=== PATIENT | male | born 1950 | race Caucasian/White ===

== ENCOUNTER 2018-09-01 11:52 | Emergency (ER) | payer MEDICARE, OTHER ==
[~2018-09-01] VITALS: Ht 167.6 cm; Wt 63.5 kg
[~2018-09-01 11:52] MED LIST: ATIVAN1 MG ORAL; DIPHENHYDRAMINE25 M1 ORAL; HYDROCODON-ACE1 EA18 PO; KENALOG 0.1% CR15 GM APPLIC; ZOLPIDEM TARTRAT5 MG ORAL
[2018-09-01 12:02] VITALS: BP 153/88
[2018-09-01] MEDS ORDERED: LEVETIRACE100 MG/1 M GT (13:45)
[2018-09-01] MEDS ORDERED: RISPERDAL2 MG ORAL (13:45)
[2018-09-01] MEDS ORDERED: BENZTROPINE ME0.5 MG PO (13:45)
[2018-09-01] MEDS ORDERED: COLACE100 MG ORAL (13:45)
[2018-09-01] MEDS ORDERED: FAMOTIDINE20 MG ORAL (13:45)
[2018-09-01] MEDS ORDERED: GABAPENTIN300 MG ORAL (13:45)
[2018-09-01] MEDS ORDERED: OMEPRAZOLE40 M1 ORAL (13:45)
[2018-09-01] MEDS ORDERED: LOSARTAN POTASS50 MG ORAL (13:45)
[2018-09-01] MEDS ORDERED: TAMSULOSIN HCL0.4 MG ORAL (13:45)
[2018-09-01] MEDS ORDERED: SENNA8.6 M2 PO (13:45)
[2018-09-01 14:16] LABS: BASOPHILS % (AUTO) 1.7 % (0.0-2.0); HEMATOCRIT 39.1 % (42.0-52.0); HEMOGLOBIN 13.3 G/DL (14.2-18.0); LYMPHOCYTES % (AUTO) 21.5 % (20.0-45.0); MEAN CORPUSCULAR VOLUME 92 FL (80-99); MONOCYTES % (AUTO) 6.8 % (1.0-10.0); NEUTROPHILS % (AUTO) 68.9 % (45.0-75.0); PLATELET COUNT 225 K/UL (150-450); RED BLOOD COUNT 4.23 M/UL (4.70-6.10); RED CELL DISTRIBUTION WIDTH 12.8 % (11.6-14.8); WHITE BLOOD COUNT 7.6 K/UL (4.8-10.8)
[2018-09-01 14:22] LABS: INR 1.1 (0.9-1.1)
--- NOTE | 2018-09-01 14:30 | Emergency Room Report ---
History of Present Illness General Chief Complaint: Nausea Source: Patient (Jaleel Lopez MD) Present Illness HPI Patient is a 68-year-old male presented after increased nausea and vomiting. Patient had multiple episodes of vomiting. Patient had not been noted to have any fever. Patient denies any severe pain. He reports having prior history of arthritis and had multiple. Patient is denies any hematemesis or bloody stools.He reports having not had a bowel movement over the past 1 day. (Jaleel Lopez MD) Allergies: Coded Allergies: No Known Allergies (Unverified , 07/20/15) Patient History Past Medical History: see triage record Reviewed Nursing Documentation: PMH: Agreed; PSxH: Agreed (Jaleel Lopez MD) Nursing Documentation-PMH Past Medical History: No History, Except For (Jaleel Lopez MD) Review of Systems All Other Systems: negative except mentioned in HPI (Jaleel Lopez MD) Physical Exam Vital Signs Date Time Temp Pulse Resp B/P (MAP) Pulse Ox O2 Delivery O2 Flow Rate FiO2 09/01/18 11:46 98.4 62 18 160/84 94 Room Air Sp02 EP Interpretation: reviewed, normal General Appearance: normal inspection, well appearing, no apparent distress, alert, Chronically Ill Head: atraumatic ENT: normal ENT inspection, hearing grossly normal, normal voice Neck: normal inspection, full range of motion, supple, no bony tend Respiratory: normal inspection, lungs clear, normal breath sounds, no respiratory distress, no retraction, no wheezing Cardiovascular #1: regular rate, rhythm, no edema Gastrointestinal: normal bowel sounds, non tender, soft, no guarding, no hernia , distended Genitourinary: no CVA tenderness Musculoskeletal: decreased range of motion, other - contracted Neurologic: normal inspection, alert, responsive, speech normal Psychiatric: normal inspection, judgement/insight normal, mood/affect normal Skin: normal inspection, normal color, no rash (Jaleel Lopez MD) Medical Decision Making Diagnostic Impression: Primary Impression: Nausea and vomiting in adult patient ER Course Patient presented for abdominal pain. Differential diagnoses included ischemic bowel, bowel obstruction, appendicitis, perforated viscus, abdominal aortic aneurysm, inferior myocardial infarction, viral gastroenteritis. Because of complexity of patient's case laboratory testing and imaging studies were ordered. Laboratory studies were unremarkable. CT imaging is currently pending. Patient was endorsed to Dr. Wagner pending CT findings. (Jaleel Lopez MD) ER Course Please refer to the initial note for the history exam and presentation Patient's CT imaging does not reveal any obvious bowel traction patient does have significant retained stool There are also some evidence of inflammation and possible colitis, please refer to the full report for full specifics, sodium level showing sodium of 130 Does not require any acute intervention currently A Fleet enema was ordered for improvement however the patient refuses that Reports having bowel movement earlier Currently remains asymptomatic patient has been resting without any signs of vomiting in the emergency room Case was discussed with the patient's primary physician He reports of the patient has had several stool retention episodes And he will otherwise follow at [facility] Labs Test 09/01/18 14:00 09/01/18 15:10 White Blood Count 7.6 K/UL (4.8-10.8) Red Blood Count 4.23 M/UL (4.70-6.10) Hemoglobin 13.3 G/DL (14.2-18.0) Hematocrit 39.1 % (42.0-52.0) Mean Corpuscular Volume 92 FL (80-99) Mean Corpuscular Hemoglobin 31.4 PG (27.0-31.0) Mean Corpuscular Hemoglobin Concent 34.0 G/DL (32.0-36.0) Red Cell Distribution Width 12.8 % (11.6-14.8) Platelet Count 225 K/UL (150-450) Mean Platelet Volume 5.8 FL (6.5-10.1) Neutrophils (%) (Auto) 68.9 % (45.0-75.0) Lymphocytes (%) (Auto) 21.5 % (20.0-45.0) Monocytes (%) (Auto) 6.8 % (1.0-10.0) Eosinophils (%) (Auto) 1.0 % (0.0-3.0) Basophils (%) (Auto) 1.7 % (0.0-2.0) Prothrombin Time 11.5 SEC (9.30-11.50) Prothromb Time International Ratio 1.1 (0.9-1.1) Activated Partial Thromboplast Time 29 SEC (23-33) Lactic Acid Level 0.70 mmol/L (0.4-2.0) Troponin I 0.000 ng/mL (0.000-0.056) Sodium Level 130 MMOL/L (136-145) Potassium Level 4.3 MMOL/L (3.5-5.1) Chloride Level 96 MMOL/L (98-107) Carbon Dioxide Level 26 MMOL/L (21-32) Anion Gap 8 mmol/L (5-15) Blood Urea Nitrogen 12 mg/dL (7-18) Creatinine 0.6 MG/DL (0.55-1.30) Estimat Glomerular Filtration Rate > 60 mL/min (>60) Glucose Level 93 MG/DL (74-106) Calcium Level 8.7 MG/DL (8.5-10.1) Total Bilirubin 0.6 MG/DL (0.2-1.0) Aspartate Amino Transf (AST/SGOT) 18 U/L (15-37) Alanine Aminotransferase (ALT/SGPT) 18 U/L (12-78) Alkaline Phosphatase 145 U/L (46-116) Total Protein 7.6 G/DL (6.4-8.2) Albumin 3.4 G/DL (3.4-5.0) Globulin 4.2 g/dL Albumin/Globulin Ratio 0.8 (1.0-2.7) Lipase 232 U/L (73-393) (Niurka Wagner DO) CT/MRI/US Diagnostic Results CT/MRI/US Diagnostic Results : Impression CT abdomen pelvisIMPRESSION: Limited exam without intravenous and oral contrast. Within these limitations: * Moderate stool burden in the rectum which is dilated. There is associated rectal wall thickening and mild presacral edema. Findings are suggest of a fecal impaction with possible development of stercoral colitis. Correlate clinically. * Possibility of underlying rectal mass not excludable given degree of rectal wall thickening. Recommend further evaluation with colonoscopy after resolution of fecal impaction. * Significant colonic stool burden in some scattered areas of small bowel feces. Findings are likely related to the above-described rectal fecal impaction. No abnormal dilatation of small bowel loops to suggest small bowel obstruction. * Moderate gaseous distention of the stomach, nonspecific, possibility of a degree of gastric outlet obstruction or delayed gastric emptying not excludable. * Bladder wall thickening may be related to underdistention. Correlate with urinalysis to exclude cystitis. * Complex cyst with some peripheral calcification in the left kidney. Recommend comparison with prior exam to assess stability. Alternatively follow-up exam can be obtained. Correlation with ultrasound may also be helpful. * Elevation of the right hemidiaphragm with adjacent atelectasis/scarring in the right lower lobe. * Coronary arterial calcifications. Additional incidental findings as above. (Niurka Wagner DO) Last Vital Signs Date Time Temp Pulse Resp B/P (MAP) Pulse Ox O2 Delivery O2 Flow Rate FiO2 09/01/18 12:02 98.4 59 22 153/88 96 Room Air (Jaleel Lopez MD) Status: improved (Niurka Wagner DO) Disposition: [facility] Condition: Improved Referrals: NON PHYSICIAN (PCP) Additional Instructions: Patient is provided with the discharge instructions notified to follow up with primary doctor in the next 2-3 days otherwise return to the er with any worsening symptoms. Please note that this report is being documented using [employer] technology. This can lead to erroneous entry secondary to incorrect interpretation by the dictating instrument. Jaleel Lopez MD Sep 01, 2018 14:30 Niurka Wagner DO Sep 01, 2018 17:05
[2018-09-01] MEDS ORDERED: Isovue-300 100ml vial INJ PRN (15:00)
[2018-09-01 15:38] LABS: ALANINE AMINOTRANSFERASE 18 U/L (12-78); ALBUMIN 3.4 G/DL (3.4-5.0); ALBUMIN/GLOBULIN RATIO 0.8 (1.0-2.7); ALKALINE PHOSPHATASE 145 U/L (46-116); ANION GAP 8 mmol/L (5-15); ASPARTATE AMINO TRANSFERASE 18 U/L (15-37); BILIRUBIN,TOTAL 0.6 MG/DL (0.2-1.0); CALCIUM 8.7 MG/DL (8.5-10.1); CARBON DIOXIDE 26 MMOL/L (21-32); CHLORIDE 96 MMOL/L (98-107); CREATININE 0.6 MG/DL (0.55-1.30); POTASSIUM 4.3 MMOL/L (3.5-5.1); SODIUM 130 MMOL/L (136-145)
[2018-09-01 15:51] LABS: BLOOD UREA NITROGEN 12 mg/dL (7-18)
--- NOTE | 2018-09-01 16:27 | Diagnostic Imaging Report ---
Indication: Abdominal pain Technique: Noncontrast CT of the abdomen and pelvis utilizing automated exposure control. Axial, sagittal and coronal reformats presented. CT dose: Total DLP 546.84 mGycm; CTDI vol 10.11 mGy Comparison: None Findings: Please note that evaluation of the abdominal and pelvic viscera and vascular structures is limited without the use of intravenous and oral contrast. Within these limitations the following observations are made: There is elevation of the right hemidiaphragm and adjacent atelectasis or scarring in the right lower lobe. Heart size within the upper limits for normal. There are coronary arterial calcifications. There is interposition of the colon anterior to the liver. Gallbladder is unremarkable, without CT evident gallstones or pericholecystic inflammatory change. Noncontrast evaluation of the liver, spleen and pancreas unremarkable. There is bilateral adrenal hyperplasia. A cyst in the lower pole the left kidney demonstrates some thinning calcifications. There is no urinary tract stone or hydronephrosis. There is bladder wall thickening. Prostate appears mildly enlarged. There is nonspecific gaseous distention of the stomach. Small bowel loops are not dilated. There is marked colonic stool burden. There is significant stool in the rectum which is dilated. There is rectal wall thickening with thickness measuring up to approximately 14 mm (series 3 image #127). There is presacral stranding and small pelvic lymph nodes. Findings suggest fecal impaction with possible development of stercoral colitis. Underlying mass not excludable given rectal wall thickening. Correlation with colonoscopy recommended after resolution of the fecal impaction. Some scattered areas of small bowel feces. Appendix is not definitively identified however no focal inflammatory stranding the right lower quadrant. Atherosclerotic calcifications noted in a normal caliber abdominal aorta. There are degenerative changes in the spine and bilateral hips. No evidence of acute fracture. IMPRESSION: Limited exam without intravenous and oral contrast. Within these limitations: * Moderate stool burden in the rectum which is dilated. There is associated rectal wall thickening and mild presacral edema. Findings are suggest of a fecal impaction with possible development of stercoral colitis. Correlate clinically. * Possibility of underlying rectal mass not excludable given degree of rectal wall thickening. Recommend further evaluation with colonoscopy after resolution of fecal impaction. * Significant colonic stool burden in some scattered areas of small bowel feces. Findings are likely related to the above-described rectal fecal impaction. No abnormal dilatation of small bowel loops to suggest small bowel obstruction. * Moderate gaseous distention of the stomach, nonspecific, possibility of a degree of gastric outlet obstruction or delayed gastric emptying not excludable. * Bladder wall thickening may be related to underdistention. Correlate with urinalysis to exclude cystitis. * Complex cyst with some peripheral calcification in the left kidney. Recommend comparison with prior exam to assess stability. Alternatively follow-up exam can be obtained. Correlation with ultrasound may also be helpful. * Elevation of the right hemidiaphragm with adjacent atelectasis/scarring in the right lower lobe. * Coronary arterial calcifications. Additional incidental findings as above. The CT scanner at [facility] is accredited by the [employer] and the scans are performed using protocols designed to limit radiation exposure to as low as reasonably achievable to attain images of sufficient resolution adequate for diagnostic evaluation.
[2018-09-01] MEDS: Fleet's Enema 133ml RECTAL ONE ×2 (16:39→16:43)
[2018-09-01 17:10] VITALS: BP 155/81
[2018-09-01 17:46] VITALS: BP 155/58
--- NOTE | 2018-09-03 17:37 | Cardiology Report ---
APPROVED REPORT EKG Measurement Heart [id number] Sinus bradycardia Left axis deviation Abnormal ECG
== END 2018-09-01 17:30 ==
LOC: EDBD 11:52 → EMR 14:08
DX: R11.2 Nausea with vomiting, unspecified (principal); R10.9 Unspecified abdominal pain
CPT/HCPCS: 36415; 74176; 80053; 82962; 83605; 83690; 84484; 85025; 85610; 85730; 93005; 96361; 96374; 99284; J2405

== ENCOUNTER 2018-11-12 13:09 | Inpatient (IN) | payer MEDICARE, OTHER ==
[~2018-11-12] VITALS: Ht 172.7 cm; Wt 72.6 kg
[~2018-11-12 13:09] MED LIST changes: +BENZTROPINE ME0.5 MG PO; +COLACE100 MG ORAL; +FAMOTIDINE20 MG ORAL; +GABAPENTIN300 MG ORAL; +LEVETIRACE100 MG/1 M ORAL; +LOSARTAN POTASS50 MG ORAL; +OMEPRAZOLE40 M1 ORAL; +RISPERDAL2 MG ORAL; +SENNA8.6 M2 PO; +TAMSULOSIN HCL0.4 MG ORAL
[2018-11-12 13:20] VITALS: BP 140/79
--- NOTE | 2018-11-12 13:20 | NUR ---
ED Nurse Note: PT BROUGHT IN BY AMBULANCE FROM [facility]. AOX4. PER EMS, PT WAS FEBRILE AT FACILITY, 100.0F. RECTAL TEMP AT BEDSIDE: 103.3F. PT ALSO TACHYCARDIC, HR: 107. RR22 @ 94% O2 SATURATION ON RA. PT DENIES PAIN.
[2018-11-12] MEDS ORDERED: SODIUM CHLORIDE1 GM PO (13:26)
[2018-11-12] MEDS ORDERED: LOSARTAN POTASS50 MG ORAL (13:28)
[2018-11-12] MEDS ORDERED: Sodium Chloride 2,200 ML IVLG ONE (13:30)
[2018-11-12] MEDS ORDERED: Cefepime HCl 2 GM in NS 110 ML IV SCH (13:30)
--- NOTE | 2018-11-12 13:40 | NUR ---
ED Nurse Note: Urine could not be collected, pt refused straight catheter.
[2018-11-12 14:08] LABS: HEMATOCRIT 32.2 % (42.0-52.0); HEMOGLOBIN 10.7 G/DL (14.2-18.0); MEAN CORPUSCULAR VOLUME 84 FL (80-99); PLATELET COUNT 278 K/UL (150-450); RED BLOOD COUNT 3.85 M/UL (4.70-6.10); RED CELL DISTRIBUTION WIDTH 14.1 % (11.6-14.8); WHITE BLOOD COUNT 15.7 K/UL (4.8-10.8)
[2018-11-12] MEDS ORDERED: Acetaminophen 650 MG SUPP RECTAL ONE (14:15)
[2018-11-12 14:21] LABS: ANION GAP 10 mmol/L (5-15); BLOOD UREA NITROGEN 12 mg/dL (7-18); CALCIUM 8.6 MG/DL (8.5-10.1); CARBON DIOXIDE 26 MMOL/L (21-32); CHLORIDE 94 MMOL/L (98-107); CREATININE 0.7 MG/DL (0.55-1.30); POTASSIUM 4.1 MMOL/L (3.5-5.1); SODIUM 129 MMOL/L (136-145)
[2018-11-12 14:35] LABS: ALANINE AMINOTRANSFERASE 8 U/L (12-78); ALBUMIN 2.6 G/DL (3.4-5.0); ALBUMIN/GLOBULIN RATIO 0.5 (1.0-2.7); ALKALINE PHOSPHATASE 124 U/L (46-116); ASPARTATE AMINO TRANSFERASE 14 U/L (15-37); BILIRUBIN,TOTAL 0.8 MG/DL (0.2-1.0); CKMB < 0.5 NG/ML (0.0-3.6); CREATINE KINASE 37 U/L (26-308)
[2018-11-12 15:00] VITALS: BP 123/70
--- NOTE | 2018-11-12 15:00 | NUR ---
ED Nurse Note: PT REMINDED URINE IS NECESSARY. URINAL AT BEDSIDE. PT CONTINUES TO REFUSE STRAIGHT CATHETER.
--- NOTE | 2018-11-12 15:24 | Diagnostic Imaging Report ---
Indication: Cough Technique: One view of the chest Comparison: 05/12/2012 Findings: A band of atelectasis is present in the right perihilar region. The lungs and pleural spaces are otherwise clear. The heart size is normal. The aorta is tortuous calcified and ectatic Impression: Right perihilar atelectasis. No acute process otherwise
--- NOTE | 2018-11-12 15:56 | Emergency Room Report ---
History of Present Illness General Chief Complaint: Fever Source: Medical Record Present Illness Allergies: Coded Allergies: No Known Allergies (Unverified , 07/20/15) Nursing Documentation-H Past Medical History: No History, Except For Hx Cardiac Problems: Yes - V-fib History Of Psychiatric Problem: Yes - Psychosis, schizophrenia, anxiety Hx Neurological Problems: Yes - Parkinson's disease, insomnia, osteoarthritis Hx Seizures: Yes Physical Exam Vital Signs Date Time Temp Pulse Resp B/P (MAP) Pulse Ox O2 Delivery O2 Flow Rate FiO2 11/12/18 13:17 100.8 110 21 146/81 92 Nasal Cannula 4.0 Medical Decision Making Diagnostic Impression: Primary Impression: Fever Additional Impressions: Hyponatremia Pneumonia Sepsis Laboratory Tests Test 11/12/18 13:49 White Blood Count 15.7 K/UL (4.8-10.8) H Red Blood Count 3.85 M/UL (4.70-6.10) L Hemoglobin 10.7 G/DL (14.2-18.0) L Hematocrit 32.2 % (42.0-52.0) L Mean Corpuscular Volume 84 FL (80-99) Mean Corpuscular Hemoglobin 27.7 PG (27.0-31.0) Mean Corpuscular Hemoglobin Concent 33.1 G/DL (32.0-36.0) Red Cell Distribution Width 14.1 % (11.6-14.8) Platelet Count 278 K/UL (150-450) Mean Platelet Volume 4.6 FL (6.5-10.1) L Neutrophils (%) (Auto) % (45.0-75.0) Lymphocytes (%) (Auto) % (20.0-45.0) Monocytes (%) (Auto) % (1.0-10.0) Eosinophils (%) (Auto) % (0.0-3.0) Basophils (%) (Auto) % (0.0-2.0) Differential Total Cells Counted 100 Neutrophils % (Manual) 89 % (45-75) H Lymphocytes % (Manual) 7 % (20-45) L Monocytes % (Manual) 4 % (1-10) Eosinophils % (Manual) 0 % (0-3) Basophils % (Manual) 0 % (0-2) Band Neutrophils 0 % (0-8) Platelet Estimate Adequate Platelet Morphology Normal Hypochromasia 1+ Anisocytosis Sodium Level 129 MMOL/L (136-145) L Potassium Level 4.1 MMOL/L (3.5-5.1) Chloride Level 94 MMOL/L (98-107) L Carbon Dioxide Level 26 MMOL/L (21-32) Anion Gap 10 mmol/L (5-15) Blood Urea Nitrogen 12 mg/dL (7-18) Creatinine 0.7 MG/DL (0.55-1.30) Estimate Glomerular Filtration Rate > 60 mL/min (>60) Glucose Level 112 MG/DL (74-106) H Lactic Acid Level 0.90 mmol/L (0.4-2.0) Calcium Level 8.6 MG/DL (8.5-10.1) Total Bilirubin 0.8 MG/DL (0.2-1.0) Aspartate Amino Transferase (AST) 14 U/L (15-37) L Alanine Aminotransferase (ALT) 8 U/L (12-78) L Alkaline Phosphatase 124 U/L (46-116) H Total Creatine Kinase 37 U/L (26-308) Creatine Kinase MB < 0.5 NG/ML (0.0-3.6) Creatine Kinase MB Relative Index Troponin I 0.000 ng/mL (0.000-0.056) Total Protein 7.4 G/DL (6.4-8.2) Albumin 2.6 G/DL (3.4-5.0) L Globulin 4.8 g/dL Albumin/Globulin Ratio 0.5 (1.0-2.7) L Microbiology Date/Time Source Procedure Growth Status 11/12/18 13:49 Nasal Nares Influenza Types A,B Antigen (ISRRAEL) - Final Complete EKG Diagnostic Results Rate: tachycardiac Rhythm: other - S.tachycardia ST Segments: no acute changes Rhythm Strip Diag. Results EP Interpretation: yes Rate: 70's Rhythm: NSR, no PVC's, no ectopy Chest X-Ray Diagnostic Results Chest X-Ray Diagnostic Results : Chest X-Ray Ordered: Yes # of Views/Limited/Complete: 1 View Indication: Other - fever Interpretation: other - RLL opacity Impression: Other - See above Electronically Signed by: Sade Rea DO Last Vital Signs Date Time Temp Pulse Resp B/P (MAP) Pulse Ox O2 Delivery O2 Flow Rate FiO2 11/12/18 15:00 101.7 78 18 123/70 98 Room Air 11/12/18 13:17 4.0 Disposition: ADMITTED INPATIENT Condition: Serious Referrals: Liam Carpenter MD (PCP) Sade Rea DO Nov 12, 2018 15:56
--- NOTE | 2018-11-12 16:21 | NUR ---
ED Nurse Note: PT STILL UNABLE TO PROVIDE URINE AND STILL REFUSING STRAIGHT CATHETER. DR Rahman MADE AWARE. OKAY TO SKIP UA PER DR. Rahman.
[2018-11-12] MEDS ORDERED: Albuterol/Ipratropium 3ml neb HHN PRN (16:45)
[2018-11-12] MEDS ORDERED: Nitroglycerin Subl 0.4mg tab SL PRN (16:45)
[2018-11-12] MEDS ORDERED: Miralax 17gm pkt ORAL PRN (16:45)
[2018-11-12 16:59] VITALS: BP 115/63
--- NOTE | 2018-11-12 17:20 | NUR ---
ED Nurse Note: MEAL TRAY PROVIDED TO PT.
[2018-11-12] MEDS ORDERED: TAMSULOSIN HCL0.4 MG ORAL (17:50)
[2018-11-12] MEDS ORDERED: RISPERIDONE ODT2 MG PO (17:50)
[2018-11-12] MEDS ORDERED: LEVETIRACETAM500 MG ORAL (17:50)
[2018-11-12] MEDS ORDERED: RISPERIDONE PO (17:50)
--- NOTE | 2018-11-12 17:55 | NUR ---
ED Nurse Note: [facility] UN[facility] CALLED FOR PT TRANSFER. PER UNIT, NOT EXPECTING ADMISSION. WILL SPEAK WITH NURSING SUPERVISOR [employer].
[2018-11-12 18:21] LABS: APPEARANCE,URINE TURBID; BILIRUBIN, URINE NEGATIVE (NEGATIVE); GLUCOSE, URINE (UA) NEGATIVE (NEGATIVE); KETONES,URINE 2+ (NEGATIVE); LEUKOCYTE ESTERASE ,URINE 3+ (NEGATIVE); NITRITE,URINE POSITIVE (NEGATIVE); PH,URINE 6 (4.5-8.0); PROTEIN,URINE 3+ (NEGATIVE); UROBILINOGEN,URINE NORMAL MG/DL (0.0-1.0)
--- NOTE | 2018-11-12 18:25 | NUR ---
ED Nurse Note: SPOKE WITH NURSING ASPHALT WORKER. ROOM ERROR WAS MADE. ROOM REASSIGNED TO PT. [facility] CALLED FOR PT REPORT. PER UNIT, CHARGE NURSE IS BUSY. REQUESTING FOR CALL BACK IN 5 MINUTES.
[2018-11-12 18:26] LABS: COLOR,URINE YELLOW
[2018-11-12] MEDS ORDERED: Azithromycin 250mg tab ORAL SCH (18:30)
--- NOTE | 2018-11-12 18:40 | NUR ---
ED Nurse Note: [facility] UN[facility] CALLED FOR PT REPORT. REPORT GIVEN TO BEVERLY SO. PT TAKEN UP TO [facility] UNIT VIA GURNEY WITH ALL BELONGINGS ACCOMPANIED BY EMT. VSS.
[2018-11-12] MEDS ORDERED: Sodium Chloride 1gm Tab ORAL SCH (19:00)
--- NOTE | 2018-11-12 19:30 | NUR ---
NURSE NOTES: Received report from BEVERLY Oquendo. Patient has arrived to unit yet.
--- NOTE | 2018-11-12 19:37 | NUR ---
HAND-OFF: BEVERLY FREIRE gave me report but pt is not still in the 4E. Report given to BEVERLY HUFFMAN.
[2018-11-12 20:00] VITALS: BP 149/92
[2018-11-12] MEDS: Albuterol/Ipratropium 3ml neb HHN SCH ×2 (20:05→23:30)
--- NOTE | 2018-11-12 20:15 | NUR ---
NURSE NOTES: Patient arrived from ER. A&Ox3. On room air, no signs of distress or SOB. Denies pain. IV intact, patent, and saline locked. Bed in lowest position with call light in reach. Will carry out MD orders and continue to monitor patient.
[2018-11-12] MEDS: levETIRAcetam 500mg/5ml Liquid ORAL SCH (21:19)
[2018-11-12] MEDS: Sennosides 8.6mg tab ORAL SCH (21:19)
[2018-11-12] MEDS: LORazepam 1mg tab ORAL SCH (21:19)
[2018-11-12] MEDS: Docusate 100mg cap ORAL SCH (21:20)
[2018-11-12] MEDS: Tamsulosin 0.4mg cap ORAL SCH (21:20)
[2018-11-12] MEDS: Heparin 5000 units/ml inj SUBQ SCH (21:30)
[2018-11-12 23:51] VITALS: BP 123/74
[2018-11-13] MEDS: cefTRIAXone 1 GM in NS 55 ML IVPB SCH (02:09)
[2018-11-13] MEDS: Albuterol/Ipratropium 3ml neb HHN SCH ×6 (03:42→23:34)
[2018-11-13 04:00] VITALS: BP 140/81
--- NOTE | 2018-11-13 07:38 | NUR ---
HAND-OFF: Report given to BEVERLY Nielsen.
[2018-11-13 08:00] VITALS: BP 109/62
[2018-11-13] MEDS: Sennosides 8.6mg tab ORAL SCH ×2 (08:47→17:33)
[2018-11-13] MEDS: Losartan 50mg tab ORAL SCH (08:47)
[2018-11-13] MEDS: Docusate 100mg cap ORAL SCH ×2 (08:47→17:32)
[2018-11-13] MEDS: Sodium Chloride 1gm Tab ORAL SCH ×2 (08:47→17:32)
[2018-11-13] MEDS: levETIRAcetam 500mg/5ml Liquid ORAL SCH ×2 (08:48→17:32)
[2018-11-13] MEDS: Heparin 5000 units/ml inj SUBQ SCH ×2 (08:48→21:00)
[2018-11-13] MEDS ORDERED: Azithromycin 250mg tab ORAL SCH (09:00)
[2018-11-13 12:00] VITALS: BP 115/71
--- NOTE | 2018-11-13 12:32 | History and Physical Report ---
DATE OF ADMISSION: 11/12/2018 CHIEF COMPLAINT AND REASON FOR HOSPITALIZATION: The patient is admitted with cough, fever, and shortness of breath. HISTORY OF PRESENT ILLNESS: The patient is a 68-year-old man with a history of schizophrenia, COPD, osteoarthritis, seizure disorder, hyponatremia, and inability to walk. He lives in assisted living facility and came with fever and cough. X-ray shows pneumonia. ALLERGIES: None known. HABITS: He has been a heavy smoker most of his life, but states he has cut down to about four cigarettes a day recently. No alcohol or drugs. SOCIAL HISTORY: Lives in a assisted living facility. SURGICAL HISTORY: Left knee and right hand. SYSTEM REVIEW: HEAD, EYES, EARS, NOSE, THROAT: The patient's hearing is good. He has poor teeth. ENDOCRINE: No diabetes or thyroid disease. PULMONARY: History of COPD and intermittent bronchospasm. No known TB. CARDIAC: No angina, NV, palpitations, or CHF. GASTROINTESTINAL: History of gastritis. History of recurrent constipation and abdominal pain. GENITOURINARY: He is having incontinence frequently. No history of kidney stones or hematuria. NEUROLOGIC: History of seizures, well controlled for many years. History of generalized weakness. MUSCULOSKELETAL: History of severe osteoarthritis. HOME MEDICATIONS: Include benztropine, Colace, famotidine, gabapentin, Keppra, losartan, omeprazole, Risperdal, senna, sodium chloride tablets, and tamsulosin. PHYSICAL EXAMINATION: GENERAL: The patient is lying in bed, chronically ill-appearing, but in no acute distress. VITAL SIGNS: Temperature 97.6, pulse 80, respirations 18, blood pressure 109/62, and pulse ox 96. HEAD, EYES, EARS, NOSE, AND THROAT: He has poor teeth. No oral mucosal lesions. Sclerae are nonicteric. NECK: No adenopathy. LUNGS: Shows distant breath sounds. Few basilar crackles. HEART: Rhythm is regular. I hear no murmur. ABDOMEN: Soft without organomegaly or masses. EXTREMITIES: No edema, cyanosis, or clubbing. There is generalized muscle atrophy. There is some contractures in the right hand and left knee. NEUROLOGIC: The patient is alert and responsive. Ocular motion is intact in all directions. Smile is symmetric. He moves all extremities. He has generalized weakness. PERTINENT DATA: Chest x-ray, read by the emergency room was consistent with a pulmonary infiltrate. Radiologist report shows right perihilar atelectasis. He has a white count of 15.7, hemoglobin is 10.7. Sodium 129, potassium 4.1, creatinine 0.7. AST and ALT are normal. Albumin is 2.6. Urinalysis shows too numerous to count white cells, 0 - 2 red cells per high-powered field. IMPRESSION: 1. Community-acquired pneumonia versus acute bronchitis. Note, influenza test negative. 2. Urinary tract infection with gram-negative rods. 3. Hyponatremia, chronic likely SIADH. 4. History of epilepsy, controlled. 5. History of schizophrenia. 6. Moderate protein-calorie malnutrition. 7. History of hypertension. 8. History of gastritis. 9. Anemia. PLAN: The patient will be started on empiric antibiotics. Pending results of cultures. We will check his iron levels and we will assess need for further treatment of his anemia. In view of his psychiatric disability and other problems, he needs to be watched closely as an inpatient for two or three days to stabilize. Liam Carpenter M.D. DR: SAYRA JOB#: [id number] CC:
--- NOTE | 2018-11-13 12:55 | NUR ---
CASE MANAGEMENT: REVIEW 68/M DONALDOMari FROM [facility] CC: FEVER SI: PNA . SEPSIS T 103.3 HR 110 RR 24 BP 146/81 SAT 92% NC/4L WBC 15.7 H/H 10.7/32.2 NA 129 14 ALT 8 ALK PHOS 124 IS: AZITHROMYCIN PO X1 NaCl IVF BOLUS X1 TYLENOL RECTAL X1 PATIENT ADMITTED TO MED/SURG UNIT 11/12/2018 DCP: PATIENT IS FROM [facility]
[2018-11-13 16:00] VITALS: BP 121/64
--- NOTE | 2018-11-13 17:09 | NUR ---
PT Note PT toy completed, treatment initiated. Patient is motivated but has muscle weakness specially in BLE's. Patient needs PT services to increase his muscle strength and balance to improve his functional mobility. Addendum: 11/13/18 at 1710 by HOLA MARCUS PT Amended: Links added.
--- NOTE | 2018-11-13 19:40 | NUR ---
HAND-OFF: Report given to PASCUAL PAUL.
[2018-11-13 20:00] VITALS: BP 136/72
[2018-11-13] MEDS ORDERED: NS 500ML ONE (20:03)
[2018-11-13] MEDS ORDERED: Tubing IV Secondary IV ONE (20:03)
--- NOTE | 2018-11-13 22:45 | Consultation ---
Consult Note Assessment/Plan [id number] COPD exacerbation UTI Sepsis hypoxemia HTN nonambulatory Ct Sosa DO Nov 13, 2018 22:45
[2018-11-13] MEDS: Tamsulosin 0.4mg cap ORAL SCH (23:26)
[2018-11-13] MEDS: LORazepam 1mg tab ORAL SCH (23:26)
--- NOTE | 2018-11-13 23:46 | Consultation ---
DATE OF CONSULTATION: 11/13/2018 PULMONARY CONSULTATION REASON FOR CONSULTATION: Shortness of breath. HISTORY OF PRESENT ILLNESS: An elderly gentleman transferred from this facility with cough, shortness of breath, and fever. No nausea, vomiting, or diarrhea. When he came to the emergency room, he was found to have pneumonia. He has been started on intravenous antibiotics, nebulizers, and steroids. He is nonambulatory. Currently, not on supplemental oxygen. He says he feels better than when he was admitted. PAST MEDICAL HISTORY: Schizophrenia, chronic obstructive pulmonary disease, osteoarthritis, seizure disorder, hyponatremia, and gait dysfunction. SURGICAL HISTORY: Includes left knee and right hand. MEDICATIONS: Pre-hospital and current hospital medications reviewed, reconciled, and documented in the electronic medical record by dose, frequency, and route. ALLERGIES: He has no known drug allergies. FAMILY HISTORY: Noncontributory. SOCIAL HISTORY: Positive for tobacco and does smoke daily. No alcohol. No drugs. Lives in assisted living facility. REVIEW OF SYSTEMS: Positive for chest pain, shortness of breath, cough, fever, and chills. No weight loss. No signs of dysphagia or aspiration. PHYSICAL EXAMINATION: VITAL SIGNS: Currently, afebrile, pulse 70, and respirations 18. He is 99% on room air. HEENT: He is normocephalic and atraumatic. Oropharynx is dry. Nasal mucosa is dry. He has poor dentition. LUNGS: Scattered rhonchi. No wheezes. HEART: Regular rhythm without murmur. ABDOMEN: Soft and nontender. Positive bowel sounds. EXTREMITIES: No edema. He is able to move all extremities. No skin rashes or lesions are present. LABORATORY DATA: His white count is 57, hemoglobin 10.7, and platelets are 278,000. Sodium 129, potassium 4.1, chloride 94, bicarb 26, BUN 12, creatinine 0.7, and glucose of 112. Lactic acid is 0.9. His troponin is negative and his urinalysis is positive for leukocyte esterase. His chest x-ray demonstrates right atelectasis and possible pneumonia. ASSESSMENT: Pneumonia, urinary tract infection, sepsis, schizophrenia, chronic obstructive pulmonary disease with exacerbation, hypertension, and hypoxemia. PLAN: The patient is placed on intravenous antibiotics, which we will continue at this time. Currently, he is not wheezing and steroids have been given, so we will hold at this time. If his wheezing does occur, steroids would be indicated. Check blood, urine, and sputum cultures. DVT prophylaxis. O2 to maintain sats greater than 90%. Follow up chest x-ray in 1 to 2 days and resume his home medications. We will continue to follow the patient for the remainder of his hospital stay. Ct Sosa D.O. DR: MARIA ANTONIA JOB#: [id number] CC:
[2018-11-14] VITALS: BP 129/63
[2018-11-14] MEDS: cefTRIAXone 1 GM in NS 55 ML IVPB SCH (01:57)
[2018-11-14 04:00] VITALS: BP 150/81
--- NOTE | 2018-11-14 07:40 | NUR ---
NURSE NOTES: Received patient on bed, awake. IV site intact and patent. Bed in low and lock ed position, call light in reach. Room board updated. No signs of respiratory distress or pain. Will continue to monitor.
[2018-11-14] MEDS: Albuterol/Ipratropium 3ml neb HHN SCH ×5 (07:42→23:45)
[2018-11-14 08:00] VITALS: BP 152/80
--- NOTE | 2018-11-14 08:22 | NUR ---
HAND-OFF: Report given to BEVERLY Salgado.
--- NOTE | 2018-11-14 08:45 | NUR ---
NURSE NOTES: Left message for MD Carpenter for ESBL notification.
--- NOTE | 2018-11-14 08:48 | NUR ---
NURSE NOTES: Left message for MD Carpenter in regards to positive ESBL urine notification from microbiology. Addendum: 11/14/18 at 0908 by KASHMIR SILVEIRA RN RN MD Carpenter called back and ordered current antibiotics stopped and order meropenem 1gm IV every eight hours and notify MD Burrell for consult.
[2018-11-14] MEDS: Docusate 100mg cap ORAL SCH ×3 (09:00→17:31)
[2018-11-14] MEDS: Sennosides 8.6mg tab ORAL SCH ×3 (09:57→17:32)
[2018-11-14] MEDS: Losartan 50mg tab ORAL SCH (09:57)
[2018-11-14] MEDS: Sodium Chloride 1gm Tab ORAL SCH ×2 (09:58→17:31)
[2018-11-14] MEDS: levETIRAcetam 500mg/5ml Liquid ORAL SCH ×2 (09:59→17:31)
[2018-11-14] MEDS: Heparin 5000 units/ml inj SUBQ SCH ×2 (11:13→23:14)
--- NOTE | 2018-11-14 11:46 | Infectious Diseases Prog Note ---
Assessment/Plan Assessment/Plan Full consult dictated: A) 1) gram + bacteremia, ? source 2) esbl e.coli uti 3) pmh noted 4) allergies - nkda P) 1) meropenem and vancomycin 2) check blood cultures identification 3) check labs and chest x-ray 4) thank you Subjective Allergies: Coded Allergies: No Known Allergies (Unverified , 07/20/15) Objective Vital Signs Last 24 Hour Vital Signs Date Time Temp Pulse Resp B/P (MAP) Pulse Ox O2 Delivery O2 Flow Rate FiO2 11/14/18 11:34 67 19 95 Room Air 21 11/14/18 09:57 152/80 11/14/18 09:00 Room Air 11/14/18 08:00 97.7 107 18 152/80 (104) 95 11/14/18 07:53 70 19 97 Room Air 21 11/14/18 07:42 66 19 96 Room Air 21 11/14/18 04:00 98.0 63 18 150/81 (104) 95 11/14/18 03:42 Room Air 21 11/14/18 03:42 Room Air 21 11/14/18 00:00 98.1 72 18 129/63 (85) 95 11/13/18 23:45 83 18 94 Room Air 21 11/13/18 23:34 74 20 94 Room Air 21 11/13/18 21:00 Room Air 11/13/18 20:43 70 18 99 Room Air 21 11/13/18 20:33 69 18 96 Room Air 21 11/13/18 20:00 99.2 72 18 136/72 (93) 96 11/13/18 16:00 98.2 88 19 121/64 (83) 96 11/13/18 15:22 81 22 100 Room Air 21 11/13/18 15:11 74 20 97 Room Air 21 11/13/18 12:00 97.9 68 18 115/71 (86) 96 Height (Feet): 5 Height (Inches): 8.00 Weight (Pounds): 160 Microbiology Date/Time Source Procedure Growth Status 11/12/18 13:49 Blood Blood Culture - Preliminary Resulted 11/12/18 13:34 Blood Blood Culture - Preliminary Resulted 11/12/18 13:49 Nasal Nares Influenza Types A,B Antigen (ISRRAEL) - Final Complete 11/12/18 13:40 Nasal Nares MRSA Culture - Final NO METHICILLIN RESISTANT STAPH AUREUS... Complete 11/12/18 17:55 Urine,Clean Catch Urine Culture - Final Escherichia Coli - Esbl Complete 11/12/18 13:40 Rectum VRE Culture - Final NO VANCOMYCIN RESISTANT ENTEROCOCCUS ... Resulted 11/12/18 13:40 Rectum Pending Resulted Current Medications Medications (Trade) Dose Ordered Sig/Nikolay Route PRN Reason Start Time Stop Time Status Last Admin Dose Admin Acetaminophen (Tylenol) 650 mg Q4H PRN ORAL Mild Pain (Pain Scale 1-3) 11/12/18 16:45 12/12/18 16:44 11/13/18 06:00 Acetaminophen (Tylenol) 650 mg Q4H PRN ORAL fever (temp>100.5F) 11/12/18 16:45 12/12/18 16:44 Albuterol/ Ipratropium (Albuterol/ Ipratropium) 3 ml Q2H PRN HHN Shortness of Breath 11/12/18 16:45 11/17/18 16:44 Albuterol/ Ipratropium (Albuterol/ Ipratropium) 3 ml Q4HRT HHN 11/12/18 19:00 11/17/18 18:59 11/14/18 11:34 Dextrose (Dextrose 50%) 25 ml Q30M PRN IV Hypoglycemia 11/12/18 16:45 12/12/18 16:44 Dextrose (Dextrose 50%) 50 ml Q30M PRN IV Hypoglycemia 11/12/18 16:45 12/12/18 16:44 Diphenhydramine HCl (Benadryl) 25 mg Q6H PRN ORAL Itching 11/12/18 16:45 12/12/18 16:44 Docusate Sodium (Colace) 100 mg TWICE A DAY ORAL 11/12/18 18:00 12/12/18 17:59 11/13/18 08:47 Famotidine (Pepcid) 20 mg BID ORAL 11/12/18 18:00 12/12/18 17:59 11/13/18 08:47 Gabapentin (Neurontin) 300 mg BID ORAL 11/12/18 18:00 12/12/18 17:59 11/13/18 08:48 Heparin Sodium (Porcine) (Heparin 5000 units/ml) 5,000 units EVERY 12 HOURS SUBQ 11/12/18 21:00 12/12/18 20:59 11/12/18 21:30 Levetiracetam (Keppra) 1,000 mg BID ORAL 11/12/18 18:00 12/12/18 17:59 11/14/18 09:59 Lorazepam (Ativan) 1 mg BEDTIME ORAL 11/12/18 21:00 11/19/18 20:59 11/13/18 23:26 Losartan Potassium (Cozaar) 50 mg DAILY ORAL 11/13/18 09:00 12/13/18 08:59 11/14/18 09:57 Meropenem 1 gm/ Sodium Chloride 55 ml @ 110 mls/hr Q8HR IVPB 11/14/18 14:00 11/19/18 13:59 Nitroglycerin (Ntg) 0.4 mg Q5M X 3 DOSES PRN SL Prn Chest Pain 11/12/18 16:45 12/12/18 16:44 Ondansetron HCl (Zofran) 4 mg Q6H PRN IVP Nausea & Vomiting 11/12/18 16:45 12/12/18 16:44 Polyethylene Glycol (Miralax) 17 gm HSPRN PRN ORAL Constipation 11/12/18 16:45 12/12/18 16:44 Risperidone (RisperDAL) 2 mg DAILY ORAL 11/13/18 09:00 12/13/18 08:59 11/13/18 08:47 Sennosides (Senokot) 17.2 mg BID ORAL 11/12/18 18:00 12/12/18 17:59 11/13/18 08:47 Sodium Chloride (NaCl) 2 gm BID ORAL 11/13/18 09:00 12/13/18 08:59 11/14/18 09:58 Tamsulosin HCl (Flomax) 0.4 mg BEDTIME ORAL 11/12/18 21:00 12/12/18 20:59 11/13/18 23:26 Vancomycin HCl (Vanco rx to dose) 1 ea DAILY PRN MISC Per rx protocol 11/14/18 11:30 12/14/18 11:29 Vancomycin HCl 750 mg/Sodium Chloride 275 ml @ 183.333 mls/hr Q12H IVPB 11/14/18 13:00 11/19/18 12:59 Kassidy Chino MD Nov 14, 2018 11:46
[2018-11-14 12:00] VITALS: BP 146/79
[2018-11-14] MEDS: Vancomycin 750mg/NS 275ml IVPB SCH ×2 (13:24)
--- NOTE | 2018-11-14 14:40 | General Progress Note ---
Assessment/Plan Assessment/Plan 10 R sided PNA 2) gram + bacteremia 3) ESBL E. coli UTI Plan: IV ATB per ID Subjective Allergies: Coded Allergies: No Known Allergies (Unverified , 07/20/15) Subjective He is doing ok, no coughno purulent sputum production, blood cx for gram + cocci Objective Last 24 Hour Vital Signs Date Time Temp Pulse Resp B/P (MAP) Pulse Ox O2 Delivery O2 Flow Rate FiO2 11/14/18 12:00 98.4 78 22 146/79 (101) 97 11/14/18 11:45 72 19 97 Room Air 21 11/14/18 11:34 67 19 95 Room Air 21 11/14/18 09:57 152/80 11/14/18 09:00 Room Air 11/14/18 08:00 97.7 107 18 152/80 (104) 95 11/14/18 07:53 70 19 97 Room Air 21 11/14/18 07:42 66 19 96 Room Air 21 11/14/18 04:00 98.0 63 18 150/81 (104) 95 11/14/18 03:42 Room Air 21 11/14/18 03:42 Room Air 21 11/14/18 00:00 98.1 72 18 129/63 (85) 95 11/13/18 23:45 83 18 94 Room Air 21 11/13/18 23:34 74 20 94 Room Air 21 11/13/18 21:00 Room Air 11/13/18 20:43 70 18 99 Room Air 21 11/13/18 20:33 69 18 96 Room Air 21 11/13/18 20:00 99.2 72 18 136/72 (93) 96 11/13/18 16:00 98.2 88 19 121/64 (83) 96 11/13/18 15:22 81 22 100 Room Air 21 11/13/18 15:11 74 20 97 Room Air 21 Intake and Output 11/13/18 11/14/18 19:00 07:00 Intake Total 600 ml Output Total 400 ml Balance 200 ml Intake Oral 600 ml Output Urine Total 400 ml # Voids 3 Height (Feet): 5 Height (Inches): 8.00 Weight (Pounds): 160 General Appearance: WD/WN, no apparent distress EENT: PERRL/EOMI Neck: non-tender Cardiovascular: normal rate, regular rhythm, no JVD Respiratory/Chest: lungs clear, decreased breath sounds Abdomen: non tender, soft Extremities: normal range of motion Neurologic: outside repairer special II-XII grossly normal, oriented x 3 Leonel Loo MD Nov 14, 2018 14:40
[2018-11-14] MEDS: Meropenem 1 GM in NS 55 ML IVPB SCH (15:58)
[2018-11-14 16:00] VITALS: BP 145/74
--- NOTE | 2018-11-14 19:45 | NUR ---
HAND-OFF: Report given to BEVERLY Castillo.
[2018-11-14 20:00] VITALS: BP 142/79
--- NOTE | 2018-11-14 21:53 | Pulmonology Progress Note ---
Assessment/Plan Assessment/Plan Pneumonia urinary tract infection sepsis schizophrenia, chronic obstructive pulmonary disease with exacerbation hypertension hypoxemia. steroids and taper nebs and suction abx fu cxr in am check ra sat wound care oob Subjective Constitutional: Reports: no symptoms HEENT: Repors: no symptoms Respiratory: Reports: no symptoms Cardiovascular: Reports: no symptoms Gastrointestinal/Abdominal: Reports: no symptoms Allergies: Coded Allergies: No Known Allergies (Unverified , 07/20/15) Subjective better on o2 mild cough no phegm no cp nv or bleeding not getting oob Objective Last 24 Hour Vital Signs Date Time Temp Pulse Resp B/P (MAP) Pulse Ox O2 Delivery O2 Flow Rate FiO2 11/14/18 16:00 98.6 75 20 145/74 (97) 94 11/14/18 15:07 69 17 97 Room Air 21 11/14/18 14:57 68 16 94 Room Air 21 11/14/18 12:00 98.4 78 22 146/79 (101) 97 11/14/18 11:45 72 19 97 Room Air 21 11/14/18 11:34 67 19 95 Room Air 21 11/14/18 09:57 152/80 11/14/18 09:00 Room Air 11/14/18 08:00 97.7 107 18 152/80 (104) 95 11/14/18 07:53 70 19 97 Room Air 21 11/14/18 07:42 66 19 96 Room Air 21 11/14/18 04:00 98.0 63 18 150/81 (104) 95 11/14/18 03:42 Room Air 21 11/14/18 03:42 Room Air 21 11/14/18 00:00 98.1 72 18 129/63 (85) 95 11/13/18 23:45 83 18 94 Room Air 21 11/13/18 23:34 74 20 94 Room Air 21 Intake and Output 11/13/18 11/14/18 19:00 07:00 Intake Total 600 ml Output Total 400 ml Balance 200 ml Intake Oral 600 ml Output Urine Total 400 ml # Voids 3 General Appearance: cachetic Respiratory/Chest: rhonchi Cardiovascular: normal rate, regular rhythm Abdomen: soft, non tender, no organomegaly Extremities: no cyanosis Skin: no ulcers Neurologic/Psychiatric: oriented x 3, responsive Microbiology Date/Time Source Procedure Growth Status 11/12/18 13:49 Blood Blood Culture - Preliminary Resulted 11/12/18 13:34 Blood Blood Culture - Preliminary Resulted 11/12/18 13:49 Nasal Nares Influenza Types A,B Antigen (ISRRA[place]) - Final Complete 11/12/18 13:40 Nasal Nares MRSA Culture - Final NO METHICILLIN RESISTANT STAPH AUREUS... Complete 11/12/18 17:55 Urine,Clean Catch Urine Culture - Final Escherichia Coli - Esbl Complete 11/12/18 13:40 Rectum VRE Culture - Final NO VANCOMYCIN RESISTANT ENTEROCOCCUS ... Resulted 11/12/18 13:40 Rectum Pending Resulted Current Medications Medications (Trade) Dose Ordered Sig/Nikolay Route PRN Reason Start Time Stop Time Status Last Admin Dose Admin Acetaminophen (Tylenol) 650 mg Q4H PRN ORAL Mild Pain (Pain Scale 1-3) 11/12/18 16:45 12/12/18 16:44 11/13/18 06:00 Acetaminophen (Tylenol) 650 mg Q4H PRN ORAL fever (temp>100.5F) 11/12/18 16:45 12/12/18 16:44 Albuterol/ Ipratropium (Albuterol/ Ipratropium) 3 ml Q2H PRN HHN Shortness of Breath 11/12/18 16:45 11/17/18 16:44 Albuterol/ Ipratropium (Albuterol/ Ipratropium) 3 ml Q4HRT HHN 11/12/18 19:00 11/17/18 18:59 11/14/18 19:49 Dextrose (Dextrose 50%) 25 ml Q30M PRN IV Hypoglycemia 11/12/18 16:45 12/12/18 16:44 Dextrose (Dextrose 50%) 50 ml Q30M PRN IV Hypoglycemia 11/12/18 16:45 12/12/18 16:44 Diphenhydramine HCl (Benadryl) 25 mg Q6H PRN ORAL Itching 11/12/18 16:45 12/12/18 16:44 Docusate Sodium (Colace) 100 mg TWICE A DAY ORAL 11/12/18 18:00 12/12/18 17:59 11/13/18 08:47 Famotidine (Pepcid) 20 mg BID ORAL 11/12/18 18:00 12/12/18 17:59 11/13/18 08:47 Gabapentin (Neurontin) 300 mg BID ORAL 11/12/18 18:00 12/12/18 17:59 11/13/18 08:48 Heparin Sodium (Porcine) (Heparin 5000 units/ml) 5,000 units EVERY 12 HOURS SUBQ 11/12/18 21:00 12/12/18 20:59 11/12/18 21:30 Levetiracetam (Keppra) 1,000 mg BID ORAL 11/12/18 18:00 12/12/18 17:59 11/14/18 17:31 Lorazepam (Ativan) 1 mg BEDTIME ORAL 11/12/18 21:00 11/19/18 20:59 11/13/18 23:26 Losartan Potassium (Cozaar) 50 mg DAILY ORAL 11/13/18 09:00 12/13/18 08:59 11/14/18 09:57 Meropenem 1 gm/ Sodium Chloride 55 ml @ 110 mls/hr Q8HR IVPB 11/14/18 14:00 11/19/18 13:59 11/14/18 15:58 Nitroglycerin (Ntg) 0.4 mg Q5M X 3 DOSES PRN SL Prn Chest Pain 11/12/18 16:45 12/12/18 16:44 Ondansetron HCl (Zofran) 4 mg Q6H PRN IVP Nausea & Vomiting 11/12/18 16:45 12/12/18 16:44 Polyethylene Glycol (Miralax) 17 gm HSPRN PRN ORAL Constipation 11/12/18 16:45 12/12/18 16:44 Risperidone (RisperDAL) 2 mg DAILY ORAL 11/13/18 09:00 12/13/18 08:59 11/13/18 08:47 Sennosides (Senokot) 17.2 mg BID ORAL 11/12/18 18:00 12/12/18 17:59 11/13/18 08:47 Sodium Chloride (NaCl) 2 gm BID ORAL 11/13/18 09:00 12/13/18 08:59 11/14/18 17:31 Tamsulosin HCl (Flomax) 0.4 mg BEDTIME ORAL 11/12/18 21:00 12/12/18 20:59 11/13/18 23:26 Vancomycin HCl (Vanco rx to dose) 1 ea DAILY PRN MISC Per rx protocol 11/14/18 11:30 12/14/18 11:29 Vancomycin HCl 750 mg/Sodium Chloride 275 ml @ 183.333 mls/hr Q12H IVPB 11/14/18 13:00 11/19/18 12:59 11/14/18 13:24 Ct Sosa DO Nov 14, 2018 21:53
[2018-11-15] VITALS: BP 151/84
[2018-11-15] MEDS: LORazepam 1mg tab ORAL SCH ×2 (00:09→21:32)
[2018-11-15] MEDS: Tamsulosin 0.4mg cap ORAL SCH ×2 (00:09→21:32)
[2018-11-15] MEDS: Meropenem 1 GM in NS 55 ML IVPB SCH ×4 (01:27→21:35)
[2018-11-15] MEDS: Vancomycin 750mg/NS 275ml IVPB SCH ×4 (02:18→12:43)
[2018-11-15] MEDS: Albuterol/Ipratropium 3ml neb HHN SCH ×5 (03:00→22:52)
[2018-11-15 04:00] VITALS: BP 150/90
--- NOTE | 2018-11-15 07:40 | NUR ---
NURSE NOTES: Received patient on bed, awake. no sign of distress, denies pain or discomfort, HL site intact and patent. on fall precaution Bed in low and lock ed position, call light in reach.needs met and anticipated Will continue to monitor. lashawn spears
[2018-11-15 08:00] VITALS: BP 159/90
--- NOTE | 2018-11-15 08:08 | NUR ---
HAND-OFF: Report given to BEVERLY Villegas.
[2018-11-15] MEDS: Losartan 50mg tab ORAL SCH (08:37)
[2018-11-15] MEDS: levETIRAcetam 500mg/5ml Liquid ORAL SCH ×2 (08:38→18:56)
[2018-11-15] MEDS: Sodium Chloride 1gm Tab ORAL SCH ×2 (08:38→18:56)
[2018-11-15] MEDS: Sennosides 8.6mg tab ORAL SCH ×2 (08:39→18:00)
[2018-11-15] MEDS: Heparin 5000 units/ml inj SUBQ SCH ×2 (08:39→21:00)
[2018-11-15] MEDS: Docusate 100mg cap ORAL SCH ×2 (08:39→18:58)
--- NOTE | 2018-11-15 10:21 | Pulmonology Progress Note ---
Assessment/Plan Assessment/Plan Pneumonia urinary tract infection sepsis schizophrenia chronic obstructive pulmonary disease with exacerbation hypertension hypoxemia nebs and suction abx improving dc planning Subjective Constitutional: Reports: no symptoms Respiratory: Denies: shortness of breath Allergies: Coded Allergies: No Known Allergies (Unverified , 07/20/15) Objective Last 24 Hour Vital Signs Date Time Temp Pulse Resp B/P (MAP) Pulse Ox O2 Delivery O2 Flow Rate FiO2 11/15/18 08:37 159/90 11/15/18 08:10 Room Air 11/15/18 08:04 Room Air 21 11/15/18 08:00 Room Air 21 11/15/18 08:00 97.2 76 18 159/90 (113) 97 11/15/18 04:00 97.7 82 18 150/90 (110) 96 11/15/18 03:26 Room Air 21 11/15/18 03:25 Room Air 21 11/15/18 00:00 97.2 80 19 151/84 (106) 95 11/14/18 23:53 77 18 99 Room Air 21 11/14/18 23:45 75 18 96 Room Air 21 11/14/18 21:00 Room Air 11/14/18 20:00 97.5 77 20 142/79 (100) 99 11/14/18 19:57 84 16 97 Room Air 21 11/14/18 19:49 76 20 95 Room Air 21 11/14/18 16:00 98.6 75 20 145/74 (97) 94 11/14/18 15:07 69 17 97 Room Air 21 11/14/18 14:57 68 16 94 Room Air 21 11/14/18 12:00 98.4 78 22 146/79 (101) 97 11/14/18 11:45 72 19 97 Room Air 21 11/14/18 11:34 67 19 95 Room Air 21 Intake and Output 11/14/18 11/15/18 18:59 06:59 Intake Total 1290.000 ml 200 ml Balance 1290.000 ml 200 ml Intake Oral 450 ml 200 ml IV Total 330.000 ml Other 510 ml # Voids 3 1 General Appearance: no acute distress HEENT: atraumatic Respiratory/Chest: lungs clear, decreased breath sounds Cardiovascular: normal rate Microbiology Date/Time Source Procedure Growth Status 11/12/18 13:49 Blood Blood Culture - Preliminary Staphylococcus Sp Coag Neg Resulted 11/12/18 13:34 Blood Blood Culture - Preliminary Staphylococcus Sp Coag Neg Resulted 11/12/18 13:49 Nasal Nares Influenza Types A,B Antigen (ISRRAEL) - Final Complete 11/12/18 13:40 Nasal Nares MRSA Culture - Final NO METHICILLIN RESISTANT STAPH AUREUS... Complete 11/12/18 17:55 Urine,Clean Catch Urine Culture - Final Escherichia Coli - Esbl Complete 11/12/18 13:40 Rectum VRE Culture - Final NO VANCOMYCIN RESISTANT ENTEROCOCCUS ... Complete 11/12/18 13:40 Rectum - Final NO CARBAPENEM-RESISTANT ENTEROBACTERI... Complete Current Medications Medications (Trade) Dose Ordered Sig/Nikolay Route PRN Reason Start Time Stop Time Status Last Admin Dose Admin Acetaminophen (Tylenol) 650 mg Q4H PRN ORAL Mild Pain (Pain Scale 1-3) 11/12/18 16:45 12/12/18 16:44 11/13/18 06:00 Acetaminophen (Tylenol) 650 mg Q4H PRN ORAL fever (temp>100.5F) 11/12/18 16:45 12/12/18 16:44 Albuterol/ Ipratropium (Albuterol/ Ipratropium) 3 ml Q2H PRN HHN Shortness of Breath 11/12/18 16:45 11/17/18 16:44 Albuterol/ Ipratropium (Albuterol/ Ipratropium) 3 ml Q4HRT HHN 11/12/18 19:00 11/17/18 18:59 11/14/18 23:45 Dextrose (Dextrose 50%) 25 ml Q30M PRN IV Hypoglycemia 11/12/18 16:45 12/12/18 16:44 Dextrose (Dextrose 50%) 50 ml Q30M PRN IV Hypoglycemia 11/12/18 16:45 12/12/18 16:44 Diphenhydramine HCl (Benadryl) 25 mg Q6H PRN ORAL Itching 11/12/18 16:45 12/12/18 16:44 Docusate Sodium (Colace) 100 mg TWICE A DAY ORAL 11/12/18 18:00 12/12/18 17:59 11/13/18 08:47 Famotidine (Pepcid) 20 mg BID ORAL 11/12/18 18:00 12/12/18 17:59 11/15/18 08:37 Gabapentin (Neurontin) 300 mg BID ORAL 11/12/18 18:00 12/12/18 17:59 11/15/18 08:38 Heparin Sodium (Porcine) (Heparin 5000 units/ml) 5,000 units EVERY 12 HOURS SUBQ 11/12/18 21:00 12/12/18 20:59 11/12/18 21:30 Levetiracetam (Keppra) 1,000 mg BID ORAL 11/12/18 18:00 12/12/18 17:59 11/15/18 08:38 Lorazepam (Ativan) 1 mg BEDTIME ORAL 11/12/18 21:00 11/19/18 20:59 11/15/18 00:09 Losartan Potassium (Cozaar) 50 mg DAILY ORAL 11/13/18 09:00 12/13/18 08:59 11/15/18 08:37 Meropenem 1 gm/ Sodium Chloride 55 ml @ 110 mls/hr Q8HR IVPB 11/14/18 14:00 11/19/18 13:59 11/15/18 05:14 Nitroglycerin (Ntg) 0.4 mg Q5M X 3 DOSES PRN SL Prn Chest Pain 11/12/18 16:45 12/12/18 16:44 Ondansetron HCl (Zofran) 4 mg Q6H PRN IVP Nausea & Vomiting 11/12/18 16:45 12/12/18 16:44 Polyethylene Glycol (Miralax) 17 gm HSPRN PRN ORAL Constipation 11/12/18 16:45 12/12/18 16:44 Risperidone (RisperDAL) 2 mg DAILY ORAL 11/13/18 09:00 12/13/18 08:59 11/13/18 08:47 Sennosides (Senokot) 17.2 mg BID ORAL 11/12/18 18:00 12/12/18 17:59 11/13/18 08:47 Sodium Chloride (NaCl) 2 gm BID ORAL 11/13/18 09:00 12/13/18 08:59 11/15/18 08:38 Tamsulosin HCl (Flomax) 0.4 mg BEDTIME ORAL 11/12/18 21:00 12/12/18 20:59 11/15/18 00:09 Vancomycin HCl (Vanco rx to dose) 1 ea DAILY PRN MISC Per rx protocol 11/14/18 11:30 12/14/18 11:29 Vancomycin HCl 750 mg/Sodium Chloride 275 ml @ 183.333 mls/hr Q12H IVPB 11/14/18 13:00 11/19/18 12:59 11/15/18 02:18 Trevin Hannon MD Nov 15, 2018 10:20
[2018-11-15 12:03] VITALS: BP 148/68
--- NOTE | 2018-11-15 14:06 | NUR ---
ST / SWALLOW THERAPY NOTE: REFERRED BY DR ORLANDO (OUT OF TOWN DR STILL APPROVED SWALLOW EVAL AND VIDEO IF NEEDS T.O. RN PUT IN ORDER YOU) DYSPHAGIA RISK FACTORS FOR THIS 68 Y.O.M.: ACUTE PNA (COM ACQUIRED VERSUS ACUTE BRONCHITIS), FEVER, COUGH, BRONCHOSPASM, R LOWER LOBE OPACITY, PROTEIN-CALORIE MALNUTRITION. H/O COPD, PNA, PARKINSON'S DISEASE (NOT ON MEDS FOR THIS), GERD (OMEPRAZOLE NOW ON PEPCID), SCHIZOPHRENIA AND ANXIETY (ON RISPERDAL), GERD, GASTRITIS, HEAVY SMOKER NOW CUT DOWN TO 4 CIGARETTES / DAY, HTN, CARDIAC D/O, SZ D/O. AT [facility]ISTED [facility]IVING ? DIET NOW ON A MECH SOFT CHOPPED DIET AND THIN LIQUIDS WITH POOR INTAKE 50% TIME 3. PER RN OK WITH PILLS AND WATER ONE PILL AT A TIME NO OVERT ASP. PER PT, NO PROBLEMS WITH SWALLOWING AND WANTS CHICKEN NOODLE SOUP. ROOM AIR AND ABLE TO EXPRESS BASIC NEEDS, MIN DENTITION (NO DENTURES PARTIAL BROKEN) INITIAL IMPRESSIONS: RISK FOR SOME DEGREE OF OROPHARYNGEAL DYSPHAGIA ADEQUATE LIPS/TONGUE BUT WEAK COUGH (SPONTANEOUS W/O P.O. INTAKE AND VOLITIONAL COUGH) AND VOICE IS CLEAR. SLOWER BUT GROSSLY FUNCTIONAL WITH PUREED TSP AND SEQUENTIAL SIPS OF THIN LIQUIDS VIA STRAW WITH FAIR HYOLARYNGEAL EXCURSION AND NO OVERT ASP S/S SLOWER CHEWING MASTICATED SOLIDS (1/2 CRACKER) BUT HAS MIN DENTITION. TALKS WITH FOOD IN MOUTH BUT NO OVERT ASPIRATION. HAS SILENT ASPIRATION RISK SINCE HE HAS PARKINSON'S DZ. 50% INTAKE BUT HAS FOOD PREFERENCES RECOMMENDATIONS: GIVEN PNA AND PD DZ, CONSIDER MODIFIED BARIUM SWALLOW STUDY TO FURTHER ASSESS SWALLOW, DETERMINE SILENT ASP RISK/ETIOLOGY, AND ATTEMPT TRIAL TX TECHNIQUES IF PO CONTINUES FOR QUALITY OF LIFE (PT WANTS TO EAT), CONSIDER UPGRADING TO MECH CHOPPED (ON FINELY CHOPPED) AND THIN LIQUIDS (DISLIKES NECTAR THICK) WITH POSTED ASP/REFLUX PRECAUTIONS AND SUPERVISION PRN. DYSPHAGIA MANAGEMENT/TX IF NEEDS CONSIDER ENT CONSULT GIVEN LONG H/O SMOKING ( IP OR OP IF D/C) EDUCATED/TRAINED RN YOU IN POSTED ASP PREC Addendum: 11/15/18 at 1416 by NOEMÍ VICTORIA consider neuro consult since has PD dx but not on PD meds pt denies having PD
[2018-11-15 16:01] VITALS: BP 163/87
--- NOTE | 2018-11-15 18:10 | Infectious Diseases Prog Note ---
Assessment/Plan Assessment/Plan Full consult dictated: A) 1) ? 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 source 2) esbl e.coli uti, ? cap pna 3) pmh noted 4) allergies - nkda P) 1) meropenem and vancomycin 2) check f/u chest x-ray and labs 3) will f/u Subjective Constitutional: Denies: fever HEENT: Denies: congestion Respiratory: Denies: shortness of breath Cardiovascular: Denies: chest pain Allergies: Coded Allergies: No Known Allergies (Unverified , 07/20/15) Objective Vital Signs Last 24 Hour Vital Signs Date Time Temp Pulse Resp B/P (MAP) Pulse Ox O2 Delivery O2 Flow Rate FiO2 11/15/18 16:01 97.4 80 18 163/87 (112) 97 11/15/18 15:28 Room Air 21 11/15/18 15:27 Room Air 21 11/15/18 12:12 Room Air 21 11/15/18 12:11 Room Air 21 11/15/18 12:03 98.2 79 18 148/68 (94) 98 11/15/18 08:37 159/90 11/15/18 08:10 Room Air 11/15/18 08:04 Room Air 21 11/15/18 08:00 Room Air 21 11/15/18 08:00 97.2 76 18 159/90 (113) 97 11/15/18 04:00 97.7 82 18 150/90 (110) 96 11/15/18 03:26 Room Air 21 11/15/18 03:25 Room Air 21 11/15/18 00:00 97.2 80 19 151/84 (106) 95 11/14/18 23:53 77 18 99 Room Air 21 11/14/18 23:45 75 18 96 Room Air 21 11/14/18 21:00 Room Air 11/14/18 20:00 97.5 77 20 142/79 (100) 99 11/14/18 19:57 84 16 97 Room Air 21 11/14/18 19:49 76 20 95 Room Air 21 Height (Feet): 5 Height (Inches): 8.00 Weight (Pounds): 160 General Appearance: no acute distress HEENT: normocephalic, atraumatic, anicteric, mucous membranes moist Respiratory/Chest: lungs clear, normal breath sounds, no respiratory distress Cardiovascular: normal rate, regular rhythm, no gallop/murmur Abdomen: normal bowel sounds, soft, non tender, no organomegaly Current Medications Medications (Trade) Dose Ordered Sig/Nikolay Route PRN Reason Start Time Stop Time Status Last Admin Dose Admin Acetaminophen (Tylenol) 650 mg Q4H PRN ORAL Mild Pain (Pain Scale 1-3) 11/12/18 16:45 12/12/18 16:44 11/13/18 06:00 Acetaminophen (Tylenol) 650 mg Q4H PRN ORAL fever (temp>100.5F) 11/12/18 16:45 12/12/18 16:44 Albuterol/ Ipratropium (Albuterol/ Ipratropium) 3 ml Q2H PRN HHN Shortness of Breath 11/12/18 16:45 11/17/18 16:44 Albuterol/ Ipratropium (Albuterol/ Ipratropium) 3 ml Q4HRT HHN 11/12/18 19:00 11/17/18 18:59 11/14/18 23:45 Dextrose (Dextrose 50%) 25 ml Q30M PRN IV Hypoglycemia 11/12/18 16:45 12/12/18 16:44 Dextrose (Dextrose 50%) 50 ml Q30M PRN IV Hypoglycemia 11/12/18 16:45 12/12/18 16:44 Diphenhydramine HCl (Benadryl) 25 mg Q6H PRN ORAL Itching 11/12/18 16:45 12/12/18 16:44 Docusate Sodium (Colace) 100 mg TWICE A DAY ORAL 11/12/18 18:00 12/12/18 17:59 11/13/18 08:47 Famotidine (Pepcid) 20 mg BID ORAL 11/12/18 18:00 12/12/18 17:59 11/15/18 08:37 Gabapentin (Neurontin) 300 mg BID ORAL 11/12/18 18:00 12/12/18 17:59 11/15/18 08:38 Heparin Sodium (Porcine) (Heparin 5000 units/ml) 5,000 units EVERY 12 HOURS SUBQ 11/12/18 21:00 12/12/18 20:59 11/12/18 21:30 Levetiracetam (Keppra) 1,000 mg BID ORAL 11/12/18 18:00 12/12/18 17:59 11/15/18 08:38 Lorazepam (Ativan) 1 mg BEDTIME ORAL 11/12/18 21:00 11/19/18 20:59 11/15/18 00:09 Losartan Potassium (Cozaar) 50 mg DAILY ORAL 11/13/18 09:00 12/13/18 08:59 11/15/18 08:37 Meropenem 1 gm/ Sodium Chloride 55 ml @ 110 mls/hr Q8HR IVPB 11/14/18 14:00 11/19/18 13:59 11/15/18 14:57 Nitroglycerin (Ntg) 0.4 mg Q5M X 3 DOSES PRN SL Prn Chest Pain 11/12/18 16:45 12/12/18 16:44 Ondansetron HCl (Zofran) 4 mg Q6H PRN IVP Nausea & Vomiting 11/12/18 16:45 12/12/18 16:44 Polyethylene Glycol (Miralax) 17 gm HSPRN PRN ORAL Constipation 11/12/18 16:45 12/12/18 16:44 Risperidone (RisperDAL) 2 mg DAILY ORAL 11/13/18 09:00 12/13/18 08:59 11/13/18 08:47 Sennosides (Senokot) 17.2 mg BID ORAL 11/12/18 18:00 12/12/18 17:59 11/13/18 08:47 Sodium Chloride (NaCl) 2 gm BID ORAL 11/13/18 09:00 12/13/18 08:59 11/15/18 08:38 Tamsulosin HCl (Flomax) 0.4 mg BEDTIME ORAL 11/12/18 21:00 12/12/18 20:59 11/15/18 00:09 Vancomycin HCl (Vanco rx to dose) 1 ea DAILY PRN MISC Per rx protocol 11/14/18 11:30 12/14/18 11:29 Vancomycin HCl 750 mg/Sodium Chloride 275 ml @ 183.333 mls/hr Q12H IVPB 11/14/18 13:00 11/19/18 12:59 11/15/18 12:43 Kassidy Chino MD Nov 15, 2018 18:10
--- NOTE | 2018-11-15 18:26 | NUR ---
CASE MANAGEMENT: REVIEW SI: PNA . SEPSIS T 97.4 HR 80 BP 163/87 RR 18 SAT 97% ROOM AIR IS: MEROPENEM IV Q8HR VANCO IV Q12HR ALBUTEROL HHN Q4HR ST VIDEO SWALLOW STUDY MED/SURG STATUS DCP: PATIENT IS FROM [facility]
--- NOTE | 2018-11-15 18:31 | General Progress Note ---
Assessment/Plan Assessment/Plan 10 R sided PNA 2) Coag neg staph bacteremia 3) ESBL E. coli UTI Plan: IV ATB per ID Subjective Allergies: Coded Allergies: No Known Allergies (Unverified , 07/20/15) Subjective Blood cx showed coag negative staph, no c/p or sob, no cough Objective Last 24 Hour Vital Signs Date Time Temp Pulse Resp B/P (MAP) Pulse Ox O2 Delivery O2 Flow Rate FiO2 11/15/18 16:01 97.4 80 18 163/87 (112) 97 11/15/18 15:28 Room Air 21 11/15/18 15:27 Room Air 21 11/15/18 12:12 Room Air 21 11/15/18 12:11 Room Air 21 11/15/18 12:03 98.2 79 18 148/68 (94) 98 11/15/18 08:37 159/90 11/15/18 08:10 Room Air 11/15/18 08:04 Room Air 21 11/15/18 08:00 Room Air 21 11/15/18 08:00 97.2 76 18 159/90 (113) 97 11/15/18 04:00 97.7 82 18 150/90 (110) 96 11/15/18 03:26 Room Air 21 11/15/18 03:25 Room Air 21 11/15/18 00:00 97.2 80 19 151/84 (106) 95 11/14/18 23:53 77 18 99 Room Air 21 11/14/18 23:45 75 18 96 Room Air 21 11/14/18 21:00 Room Air 11/14/18 20:00 97.5 77 20 142/79 (100) 99 11/14/18 19:57 84 16 97 Room Air 21 11/14/18 19:49 76 20 95 Room Air 21 Intake and Output 11/14/18 11/15/18 19:00 07:00 Intake Total 1290.000 ml 200 ml Balance 1290.000 ml 200 ml Intake Oral 450 ml 200 ml IV Total 330.000 ml Other 510 ml # Voids 3 1 Height (Feet): 5 Height (Inches): 8.00 Weight (Pounds): 160 General Appearance: WD/WN, no apparent distress EENT: normal ENT inspection Neck: non-tender, normal alignment, supple Cardiovascular: normal peripheral pulses, normal rate, regular rhythm Respiratory/Chest: decreased breath sounds Abdomen: normal bowel sounds, non tender, soft Extremities: normal range of motion, non-tender 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
--- NOTE | 2018-11-15 19:30 | NUR ---
NURSE NOTES: Patient asleep in bed, no signs of pain, not in acute respiratory distress. Call light and needs in reach. Bed in lowest position and lock engaged. Will continue to monitor.
--- NOTE | 2018-11-15 19:36 | NUR ---
HAND-OFF: Report given to Tito PAUL.
[2018-11-15 20:00] VITALS: BP 154/85
--- NOTE | 2018-11-15 23:30 | Consultation ---
DATE OF CONSULTATION: 11/15/2018 NOTE: CANCELED DICTATION: INFECTIOUS DISEASE CONSULTATION: CONSULTING PHYSICIAN: Kassidy Chino M.D. ATTENDING PHYSICIAN: Liam Carpenter M.D. REASON FOR CONSULTATION: ESBL E. coli UTI, pyelonephritis, sepsis, coagulase-negative Staph bacteremia, fevers, leukocytosis. CHIEF COMPLAINT: The patient's chief complaint coming in to the hospital is pneumonia and sepsis. HISTORY OF PRESENT ILLNESS: This is a 68-year-old male who Kassidy Chino M.D. DR: SOWMYA JOB#: [id number] CC:
--- NOTE | 2018-11-15 23:42 | NUR ---
NURSE NOTES: Called lab to remind about pt's vanco trough. Spoke with Magaly.
[2018-11-16] VITALS: BP 111/78
[2018-11-16] MEDS: Vancomycin 750mg/NS 275ml IVPB SCH ×2 (01:00)
[2018-11-16] MEDS: Vancomycin 1gm/D5W 275ml IVPB SCH ×6 (01:38→17:50)
--- NOTE | 2018-11-16 01:45 | Consultation ---
DATE OF CONSULTATION: 11/15/2018 INFECTIOUS DISEASE CONSULTATION CONSULTING PHYSICIAN: Kassidy Chino M.D. ATTENDING PHYSICIAN: Liam Carpenter M.D. REFERRING PHYSICIAN: Liam Carpenter M.D. REASON FOR CONSULTATION: Complicated UTI with UTI/pyelonephritis sepsis. The patient has what looks like community-acquired pneumonia. The patient also has leukocytosis, fevers, and SIRS criteria. CHIEF COMPLAINT: The patient's chief complaint coming in to the hospital is pneumonia and sepsis. HISTORY OF PRESENT ILLNESS: This is a 68-year-old male who has a past medical history of multiple medical problems who comes in to [facility] with fevers, leukocytosis, and sepsis. Workup shows that he has an ESBL UTI, likely pyelonephritis with fevers and sepsis. Also, has what looks like coagulase-negative staph bacteremia. Also, has what looks like possible community-acquired pneumonia. Chest x-ray showed atelectasis, but he is congested. The patient is on meropenem and vancomycin. I saw the patient yesterday and today. The patient is not a very good historian. MAR was noted. Orders were noted. Notes were reviewed. The patient will be continued on meropenem and vancomycin for sepsis, coagulase-negative staph bacteremia, pneumonia, ESBL E. coli, UTI, and pyelonephritis. Pending final workup. Case was discussed with RN. MAR was noted. Orders were noted. Records were reviewed. The patient really cannot give further history. REVIEW OF SYSTEMS: CONSTITUTIONAL: The patient has generalized fatigue. No focal weakness. He came in with fevers and chills. He is responsive. HEAD AND NECK: No head pain or neck pain. No neck stiffness or change in vision. CARDIAC: No chest pain, palpitation, or pressors. GASTROINTESTINAL: No nausea, abdominal pain, or diarrhea. GENITOURINARY: He has some dysuria and frequency. No CVA tenderness. PULMONARY: Mild cough and congestion. No secretions or hemoptysis. SKIN: No rash or itching. EXTREMITIES: No extremity pain. NEUROLOGICAL: No seizures. He has generalized fatigue and weakness. No night sweats or weight loss mentioned. No rashes, pruritus, or seizure activity. PAST MEDICAL HISTORY: The patient's past medical history includes the following. The patient has a past medical history of schizophrenia, history of COPD, history of osteoarthritis, history of seizure disorder, history of hyponatremia, history of decreased ability to walk, and history of protein malnutrition. He does have a history of also hypertension, gastritis, and anemia. No history of diabetes or cancer mentioned. He does have a history of VFib in the past. It looks like history of psychosis, anxiety, Parkinson disease and history of insomnia. ALLERGIES: No known allergies. SOCIAL HISTORY: Negative for smoking, alcohol, or drug abuse. FAMILY HISTORY: Noncontributory. Negative for tuberculosis or cancer. MEDICATIONS: Upon reviewing the MAR, the patient is on following medication. The patient is on meropenem and vancomycin. The patient is on Cozaar, Risperdal, Ativan, Flomax, albuterol, Colace, Pepcid, and gabapentin. The patient is on Neurontin, Keppra, Senokot, albuterol, 04:29, Tylenol, Zofran, nitroglycerin, and diphenhydramine. Outside medications were noted and reconciliated. PHYSICAL EXAMINATION: VITAL SIGNS: Temperature 97.4, pulse rate is 80, respiratory rate 18, blood pressure 163/87, saturation 97%, FiO2 21%. Pulse rate was as high as 107. Temperature was as high as 103.3. GENERAL: Alert and responsive. HEAD AND NECK: Oral exam, no thrush. Eye exam, no icterus. Neck is supple. No JVD. Normocephalic. HEART: Regular. No obvious gallop or murmur. No friction rub. ABDOMEN: Soft. Positive bowel sounds. Nontender. LUNGS: Few bilateral rhonchi. Possible rales at the bases. SKIN: No rash or dermatitis. MUSCULOSKELETAL: No effusion. No evidence of septic arthritis. EXTREMITIES: Lower extremity exam, there is no cellulitis. PERIPHERAL VASCULAR: No gangrene. GENITOURINARY: I did not see a Negron. No CVA tenderness. LINES: Line sites are without phlebitis. NEUROLOGICAL: Generalized weakness. Alert and responsive. LABORATORY AND DIAGNOSTIC DATA: Laboratory data as follows. White count is 15.7 and hemoglobin 10.7. Creatinine is 0.7 and sodium is 129. Urinalysis had 3+ leukocyte esterase and too many to count white blood cells. Cultures, blood cultures had multiple bottles of coagulase-negative staph. Urine culture grew out ESBL E. coli, sensitive to imipenem. Blood culture had coagulase negative Staph. Chest x-ray showed right perihilar atelectasis versus infiltrate. Followup chest x-ray has been ordered. Sputum culture I think has been ordered also. ASSESSMENT AND PLAN: 1. The patient has a sepsis syndrome. The patient has ESBL E. coli UTI/pyelonephritis with too many count white blood cells and positive urine culture for E. coli ESBL. The patient's sepsis most likely secondary to ESBL E. coli UTI/pyelonephritis. The patient does have sepsis syndrome, SIRS criteria, leukocytosis, and fevers. The patient also has possible pneumonia versus bronchitis versus atelectasis on chest x-ray. The patient also has multiple blood cultures positive for coagulase-negative staph. Based on the cultures and workup, we will place the patient on vancomycin and meropenem to cover the ESBL E. coli UTI/pyelonephritis, we will cover the coagulase-negative staph, blood cultures also community-acquired versus aspiration pneumonia. Check followup chest x-ray. Check sputum culture. Check surveillance blood cultures. Continue meropenem and vancomycin for ESBL E. coli UTI/pyelonephritis, sepsis, pneumonia, and coagulase-negative staph bacteremia. Check labs, blood cultures, and chest x-ray. 2. Of note, vancomycin will cover the coagulase-negative staph and meropenem will cover the gram-negative anaerobes. 3. The patient has anemia. 4. Leukocytosis. 5. SIRS criteria and sepsis. 6. Hyponatremia. 7. History of schizophrenia. 8. COPD. 9. Acid thrush. 10. Hypertension. 11. Seizures. 12. Decreased gait. 13. No history of diabetes or cancer. 14. Malnutrition. 15. Hypertension per primary and consultants. 16. History of VFib in the past. 17. History of chronic kidney disease. 18. Insomnia. 19. No known allergies. 20. Family history is noncontributory. 21. Social history is negative. 22. MAR is noted. 23. Case discussed with RN. 24. Continue treatment per primary consultants. 25. Skin care protocol. 26. Infectious Disease consult. Kassidy Chino M.D. DR: LAILA JOB#: [id number] CC:
[2018-11-16] MEDS: Albuterol/Ipratropium 3ml neb HHN SCH ×6 (02:50→23:28)
[2018-11-16 04:00] VITALS: BP 115/73
[2018-11-16] MEDS: Meropenem 1 GM in NS 55 ML IVPB SCH ×3 (05:05→21:39)
[2018-11-16 06:32] LABS: BASOPHILS % (AUTO) 0.9 % (0.0-2.0); EOSINOPHILS % (AUTO) 1.2 % (0.0-3.0); HEMATOCRIT 27.4 % (42.0-52.0); LYMPHOCYTES % (AUTO) 15.6 % (20.0-45.0); MEAN CORPUSCULAR VOLUME 83 FL (80-99); MONOCYTES % (AUTO) 7.1 % (1.0-10.0); NEUTROPHILS % (AUTO) 75.2 % (45.0-75.0); PLATELET COUNT 301 K/UL (150-450); WHITE BLOOD COUNT 4.9 K/UL (4.8-10.8)
[2018-11-16 06:50] LABS: ANION GAP 8 mmol/L (5-15); BLOOD UREA NITROGEN 5 mg/dL (7-18); CALCIUM 8.5 MG/DL (8.5-10.1); CARBON DIOXIDE 28 MMOL/L (21-32); CHLORIDE 98 MMOL/L (98-107); CREATININE 0.5 MG/DL (0.55-1.30); SODIUM 134 MMOL/L (136-145)
[2018-11-16 06:56] LABS: POTASSIUM 2.7 MMOL/L (3.5-5.1)
--- NOTE | 2018-11-16 07:20 | NUR ---
NURSE NOTES: Spoke to Dr. Loo for pt's Potassium 2.7 result and obtained order for Kdur PO 40 meqs x2 only.
[2018-11-16 07:22] LABS: FERRITIN 182 NG/ML (8-388)
--- NOTE | 2018-11-16 07:30 | NUR ---
NURSE NOTES: Received pt from BEVERLY PAULINO. Pt is alert and orient x4. pt is in RA. No SOB or acute respiratory distress noted. pt has intact iv access LFA 20G is running well. all needs attended, bed is locked and is in the lowest position. call light within easy reach. will continue to monitor.
[2018-11-16 07:31] LABS: % IRON SATURATION 32 % (15-50); IRON 44 ug/dL (50-175); TOTAL IRON BINDING CAPACITY 137 ug/dL (250-450)
--- NOTE | 2018-11-16 07:50 | NUR ---
HAND-OFF: Report given to BEVERLY Oquendo.
[2018-11-16 08:00] VITALS: BP 160/90
[2018-11-16] MEDS: levETIRAcetam 500mg/5ml Liquid ORAL SCH ×2 (08:59→17:51)
[2018-11-16] MEDS: Losartan 50mg tab ORAL SCH (08:59)
[2018-11-16] MEDS: Sodium Chloride 1gm Tab ORAL SCH ×2 (08:59→17:51)
[2018-11-16] MEDS: Docusate 100mg cap ORAL SCH ×2 (09:00→18:00)
[2018-11-16] MEDS: Sennosides 8.6mg tab ORAL SCH ×2 (09:00→18:00)
[2018-11-16] MEDS: Heparin 5000 units/ml inj SUBQ SCH ×2 (09:00→21:00)
--- NOTE | 2018-11-16 09:42 | NUR ---
RADIOLOGY DEPT CHEST X-RAY DONE.-P.DYE
--- NOTE | 2018-11-16 10:27 | Diagnostic Imaging Report ---
Indication: Cough Technique: One view of the chest Comparison: 11/12/2018 Findings: Patient is rotated to the right. Band of atelectasis or scarring is again demonstrated in the right perihilar region. There is questionably mild interstitial congestion, not definitely evident previously although findings could be attributable to slight differences in exposure technique. There is slight alteration the right hemidiaphragm, could indicate a small pleural effusion developing. Heart size is normal. Impression: Stable band of atelectasis or scarring right perihilar region Equivocal interstitial congestive changes. Correlate with clinical findings Possible developing small right pleural effusion
--- NOTE | 2018-11-16 11:14 | NUR ---
NURSE NOTES: given vancomycin with delay because pt was out of unit for swallow evaluation.
--- NOTE | 2018-11-16 11:45 | NUR ---
SWALLOW/SPEECH THERAPY NOTE: COMPLETED MODIFIED BARIUM SWALLOW STUDY, SEE FULL REPORT TO FOLLOW OR CALL [phone] NOEMÍ EVARISTO. INITIAL IMPRESSIONS: MILD-MODERATE OROPHARYNGEAL DYSPHAGIA WITH INCREASED ORAL PREP AND OROPHARYNGEAL TRANSIT TIMES DUE TO SENSORIMOTOR DEFICITS. ASPIRATION AND LARYNGEAL PENETRATION (LP) RISKS: THIN LIQUIDS HIGH RISK FOR CHRONIC TRACE ASPIRATION AND LP WITH TSP, CUP, AND STRAW SEQUENTIAL SIPS. WORSE TO THE LEVEL OF THE VOCAL FOLDS WITH STRAW SEQUENTIAL AND NOT CONSISTENTLY HELPFUL WITH CHIN TUCK POSITION. ? EFFORTFUL BREATH HOLD CAN BE TAUGHT LATER. LP RELATED TO DELAYED SWALLOW, OVERALL LATE CLOSURE OF LARYNGEAL VESTIBULE, REDUCED PHARYNGEAL STRENGTH, AND TONGUE CONTROL DURING BOLUS HOLD. NECTAR THICK LIQUIDS NO ASPIRATION BUT HAD LP LARGE SIP VIA CUP AND STRAW SEQUENTIAL. PROBLEMS RELATED TO LATE SWALLOW/LARYNGEAL VESTIBULE CLOSURE MOSTLY. HONEY THICK LIQUIDS/PUREED/MASTICATED SOLIDS NO ASP/LP HAS RISK MOSTLY AFTER THE SWALLOW DUE TO MIN/MILD OROPHARYNGEAL RESIDUE (REDUCED SENSATION) NEEDS CUES FOR SECOND HARD SWALLOW TO CLEAR. (TONGUE HAS SOME WHITISH COATING THOUGH). OTHER DEFICITS: Oral Impairment Tongue Control Bolus prep/mastication Bolus becerra/lingual motion Oral residue Init. pharyngeal swallow Pharyngeal Impairment Soft palate elevation Laryngeal elevation (LE) Ant. hyoid excursion (AHE) LATE AND INCOMPLETE Laryngeal vestibule closure Pharyngeal stripping wave Pharyngoesophageal segment opening Tongue base retraction Pharyngeal residue Decrease pharyn sensation Esophageal Impairment Esophageal Clearance Trial tx: CHIN TUCK VARIABLY HELPS EFFORTFUL AND EXTRA SWALLOW CUE HELPS CLEAR OROPHARYNGEAL RESIDUE ONE SMALL SIP AT A TIME BETTER WITH NECTAR THICK LIQUIDS RECOMMENDATIONS: FOR QUALITY OF LIFE, CONTINUE WITH CURRENT DIET OF MECH SOFT CHOPPED BUT DOWNGRADE TO NECTAR THICK LIQUIDS WITH UPDATED AND POSTED ASPIRATION AND REFLUX PRECAUTIONS WITH SUPERVISION. NEEDS HOME CARE DYSPHAGIA MANAGEMENT AND TX (SEE REPORT FOR TX/GOALS) CONSIDER CONSULTS FOR NEURO (PD DX), ENT AND/OR GI FOR GERD AND LONG SMOKING HX. EDUCATED/TRAINED STAFF/PT IN UPDATED/POSTED ASP PRECAUTIONS. IP DYSPHAGIA TX/MANAGEMENT (SEE REPORT FOR DETAILS) Addendum: 11/16/18 at 1159 by NOEMÍ LOERA MULTI OPERATION MACHINE OPERATOR SWALLOW STATUS: SEE MOD BARIUM SWALLOW STUDY COMPLETED TODAY. WILL CONTINUE WITH [facility] SOFT CHOPPED DIET AND MET GOAL FOR INTAKE MOST OF THE TIME 50-75-100%. WILL DOWNGRADE TO NECTAR THICK LIQUIDS UNTIL ST ABLE TO WORK WITH PATIENT ON SAFETY SWALLOW TECHNIQUES (SEE REPORT FOR TX GOALS). GOALS MET FOR PATIENT/STAFF UPDATED ON POSTED AND UPDATED ASP PREC. PLAN: F/U IP AND HOME CARE ST FOR DYSPHAGIA MANAGEMENT AND TX
[2018-11-16 12:00] VITALS: BP 155/84
--- NOTE | 2018-11-16 13:03 | Pulmonology Progress Note ---
Assessment/Plan Assessment/Plan Pneumonia urinary tract infection sepsis schizophrenia chronic obstructive pulmonary disease with exacerbation hypertension hypoxemia CXR stable with mild atelectasis no fevers pulm stable nebs and suction abx dc planning per Dr Loo Subjective Constitutional: Reports: no symptoms Allergies: Coded Allergies: No Known Allergies (Unverified , 07/20/15) Objective Last 24 Hour Vital Signs Date Time Temp Pulse Resp B/P (MAP) Pulse Ox O2 Delivery O2 Flow Rate FiO2 11/16/18 12:00 97.9 65 18 155/84 (107) 96 11/16/18 11:41 Room Air 21 11/16/18 11:41 Room Air 21 11/16/18 08:59 160/90 11/16/18 08:00 97.5 72 20 160/90 (113) 96 11/16/18 07:40 78 16 97 Room Air 21 11/16/18 07:28 72 18 96 Room Air 21 11/16/18 04:00 98.3 71 18 115/73 (87) 95 11/16/18 02:50 Room Air 21 11/16/18 02:50 Room Air 21 11/16/18 00:00 98.8 65 19 111/78 (89) 96 11/15/18 22:53 Room Air 21 11/15/18 22:53 Room Air 21 11/15/18 21:00 Room Air 11/15/18 20:00 97.8 67 17 154/85 (108) 93 11/15/18 19:49 71 18 99 Room Air 21 11/15/18 19:37 68 18 98 Room Air 21 11/15/18 16:01 97.4 80 18 163/87 (112) 97 11/15/18 15:28 Room Air 21 11/15/18 15:27 Room Air 21 Intake and Output 11/15/18 11/16/18 18:59 06:59 Intake Total 1540.00 ml 330.000 ml Balance 1540.00 ml 330.000 ml Intake Oral 1210 ml IV Total 330.00 ml 330.000 ml # Voids 8 2 # Bowel Movements 1 General Appearance: no acute distress Respiratory/Chest: lungs clear Cardiovascular: normal rate, regular rhythm Laboratory Tests 11/16/18 00:10: Vancomycin Level Trough 6.9 11/16/18 04:45: White Blood Count 4.9, Red Blood Count 3.30L, Hemoglobin 9.0L, Hematocrit 27.4L , Mean Corpuscular Volume 83, Mean Corpuscular Hemoglobin 27.2, Mean Corpuscular Hemoglobin Concent 32.8, Red Cell Distribution Width 14.0, Platelet Count 301, Mean Platelet Volume 4.4L, Neutrophils (%) (Auto) 75.2H, Lymphocytes (%) (Auto) 15.6L, Monocytes (%) (Auto) 7.1, Eosinophils (%) (Auto) 1.2, Basophils (%) (Auto) 0.9, Sodium Level 134L, Potassium Level 2.7*L, Chloride Level 98, Carbon Dioxide Level 28, Anion Gap 8, Blood Urea Nitrogen 5L, Creatinine 0.5L, Estimat Glomerular Filtration Rate > 60, Glucose Level 122H, Osmolality 272L, Calcium Level 8.5, Iron Level 44L, Total Iron Binding Capacity 137L, Percent Iron Saturation 32, Unsaturated Iron Binding 93L, Ferritin 182, Vitamin B12 Level 732, Thyroid Stimulating Hormone (TSH) 0.838 11/16/18 05:00: Urine Osmolality 223L Current Medications Medications (Trade) Dose Ordered Sig/Nikolay Route PRN Reason Start Time Stop Time Status Last Admin Dose Admin Acetaminophen (Tylenol) 650 mg Q4H PRN ORAL Mild Pain (Pain Scale 1-3) 11/12/18 16:45 12/12/18 16:44 11/13/18 06:00 Acetaminophen (Tylenol) 650 mg Q4H PRN ORAL fever (temp>100.5F) 11/12/18 16:45 12/12/18 16:44 Albuterol/ Ipratropium (Albuterol/ Ipratropium) 3 ml Q2H PRN HHN Shortness of Breath 11/12/18 16:45 11/17/18 16:44 Albuterol/ Ipratropium (Albuterol/ Ipratropium) 3 ml Q4HRT HHN 11/12/18 19:00 11/17/18 18:59 11/16/18 07:28 Dextrose (Dextrose 50%) 25 ml Q30M PRN IV Hypoglycemia 11/12/18 16:45 12/12/18 16:44 Dextrose (Dextrose 50%) 50 ml Q30M PRN IV Hypoglycemia 11/12/18 16:45 12/12/18 16:44 Diphenhydramine HCl (Benadryl) 25 mg Q6H PRN ORAL Itching 11/12/18 16:45 12/12/18 16:44 Docusate Sodium (Colace) 100 mg TWICE A DAY ORAL 11/12/18 18:00 12/12/18 17:59 11/13/18 08:47 Famotidine (Pepcid) 20 mg BID ORAL 11/12/18 18:00 12/12/18 17:59 11/15/18 08:37 Gabapentin (Neurontin) 300 mg BID ORAL 11/12/18 18:00 12/12/18 17:59 11/16/18 08:59 Heparin Sodium (Porcine) (Heparin 5000 units/ml) 5,000 units EVERY 12 HOURS SUBQ 11/12/18 21:00 12/12/18 20:59 11/12/18 21:30 Levetiracetam (Keppra) 1,000 mg BID ORAL 11/12/18 18:00 12/12/18 17:59 11/16/18 08:59 Lorazepam (Ativan) 1 mg BEDTIME ORAL 11/12/18 21:00 11/19/18 20:59 11/15/18 21:32 Losartan Potassium (Cozaar) 50 mg DAILY ORAL 11/13/18 09:00 12/13/18 08:59 11/16/18 08:59 Meropenem 1 gm/ Sodium Chloride 55 ml @ 110 mls/hr Q8HR IVPB 11/14/18 14:00 11/19/18 13:59 11/16/18 05:05 Nitroglycerin (Ntg) 0.4 mg Q5M X 3 DOSES PRN SL Prn Chest Pain 11/12/18 16:45 12/12/18 16:44 Ondansetron HCl (Zofran) 4 mg Q6H PRN IVP Nausea & Vomiting 11/12/18 16:45 12/12/18 16:44 Polyethylene Glycol (Miralax) 17 gm HSPRN PRN ORAL Constipation 11/12/18 16:45 12/12/18 16:44 Potassium Chloride (K-Dur) 40 meq Q8H ORAL 11/16/18 08:00 11/16/18 16:01 11/16/18 08:59 Risperidone (RisperDAL) 2 mg DAILY ORAL 11/13/18 09:00 12/13/18 08:59 11/16/18 09:00 Sennosides (Senokot) 17.2 mg BID ORAL 11/12/18 18:00 12/12/18 17:59 11/13/18 08:47 Sodium Chloride (NaCl) 2 gm BID ORAL 11/13/18 09:00 12/13/18 08:59 11/16/18 08:59 Tamsulosin HCl (Flomax) 0.4 mg BEDTIME ORAL 11/12/18 21:00 12/12/18 20:59 11/15/18 21:32 Vancomycin HCl (Vanco rx to dose) 1 ea DAILY PRN MISC Per rx protocol 11/14/18 11:30 12/14/18 11:29 Vancomycin HCl 1 gm/Dextrose 275 ml @ 183.708 mls/hr Q8H IVPB 11/16/18 02:00 11/21/18 01:59 11/16/18 11:17 Trevin Hannon MD Nov 16, 2018 13:03
--- NOTE | 2018-11-16 15:23 | NUR ---
NURSE NOTES: MEROPENEM wasn't in the unit till now, called pharmacy to send it.
[2018-11-16 16:00] VITALS: BP 149/88
--- NOTE | 2018-11-16 16:18 | Diagnostic Imaging Report ---
Indications: Dysphagia Technique: Patient ingested multiple substances under the supervision of speech pathology. Video fluoroscopic recording performed. Total fluoroscopy time 197.6 seconds. Total dose area product 0.30538 mGycm2 Total number of images-12 Comparison: none Findings: Ingestion of thin liquid barium demonstrates early pooling of contrast in the vallecula and piriform sinuses. Multiple episodes of deep supraglottic laryngeal penetration are demonstrated. Multiple episodes of subglottic laryngeal penetration are seen with ingestion of nectar thick liquid barium as well. Ingestion of honey thick liquid barium, barium puree, masticated solid demonstrates occasional early pooling in the vallecula, no aspiration or penetration, no significant residual Impression: Positive for penetration of thin and nectar thick liquid barium, as described Please refer to speech pathology report for more detailed analysis
--- NOTE | 2018-11-16 17:18 | General Progress Note ---
Assessment/Plan Assessment/Plan 10 R sided PNA 2) Coag neg staph bacteremia 3) ESBL E. coli UTI Plan: IV ATB per ID D/C planning Subjective Allergies: Coded Allergies: No Known Allergies (Unverified , 07/20/15) All Systems: reviewed and negative except above Subjective He does not complain of much, no c/p or sob Objective Last 24 Hour Vital Signs Date Time Temp Pulse Resp B/P (MAP) Pulse Ox O2 Delivery O2 Flow Rate FiO2 11/16/18 16:00 97.7 73 20 149/88 (108) 97 11/16/18 15:30 69 17 98 Room Air 21 11/16/18 15:19 68 17 97 Room Air 21 11/16/18 12:00 97.9 65 18 155/84 (107) 96 11/16/18 11:41 Room Air 21 11/16/18 11:41 Room Air 21 11/16/18 09:00 Room Air 11/16/18 08:59 160/90 11/16/18 08:00 97.5 72 20 160/90 (113) 96 11/16/18 07:40 78 16 97 Room Air 21 11/16/18 07:28 72 18 96 Room Air 21 11/16/18 04:00 98.3 71 18 115/73 (87) 95 11/16/18 02:50 Room Air 21 11/16/18 02:50 Room Air 21 11/16/18 00:00 98.8 65 19 111/78 (89) 96 11/15/18 22:53 Room Air 21 11/15/18 22:53 Room Air 21 11/15/18 21:00 Room Air 11/15/18 20:00 97.8 67 17 154/85 (108) 93 11/15/18 19:49 71 18 99 Room Air 21 11/15/18 19:37 68 18 98 Room Air 21 Intake and Output 11/15/18 11/16/18 19:00 07:00 Intake Total 1540.00 ml 330.000 ml Balance 1540.00 ml 330.000 ml Intake Oral 1210 ml IV Total 330.00 ml 330.000 ml # Voids 8 2 # Bowel Movements 1 Laboratory Tests 11/16/18 00:10: Vancomycin Level Trough 6.9 11/16/18 04:45: White Blood Count 4.9, Red Blood Count 3.30L, Hemoglobin 9.0L, Hematocrit 27.4L , Mean Corpuscular Volume 83, Mean Corpuscular Hemoglobin 27.2, Mean Corpuscular Hemoglobin Concent 32.8, Red Cell Distribution Width 14.0, Platelet Count 301, Mean Platelet Volume 4.4L, Neutrophils (%) (Auto) 75.2H, Lymphocytes (%) (Auto) 15.6L, Monocytes (%) (Auto) 7.1, Eosinophils (%) (Auto) 1.2, Basophils (%) (Auto) 0.9, Sodium Level 134L, Potassium Level 2.7*L, Chloride Level 98, Carbon Dioxide Level 28, Anion Gap 8, Blood Urea Nitrogen 5L, Creatinine 0.5L, Estimat Glomerular Filtration Rate > 60, Glucose Level 122H, Osmolality 272L, Calcium Level 8.5, Iron Level 44L, Total Iron Binding Capacity 137L, Percent Iron Saturation 32, Unsaturated Iron Binding 93L, Ferritin 182, Vitamin B12 Level 732, Thyroid Stimulating Hormone (TSH) 0.838 11/16/18 05:00: Urine Osmolality 223L Height (Feet): 5 Height (Inches): 8.00 Weight (Pounds): 160 General Appearance: no apparent distress, alert EENT: PERRL/EOMI Neck: non-tender, normal alignment, supple Cardiovascular: normal rate, regular rhythm Respiratory/Chest: lungs clear Abdomen: non tender, soft, no mass 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
--- NOTE | 2018-11-16 19:34 | NUR ---
HAND-OFF: Report given to BEVERLY PAULINO.
--- NOTE | 2018-11-16 19:37 | NUR ---
NURSE NOTES: Patient asleep in bed. No signs of pain. Call light and needs in reach. Bed in lowest position, lock engaged and alarm on. Will continue to monitor.
[2018-11-16 20:00] VITALS: BP 149/85
[2018-11-16] MEDS: Tamsulosin 0.4mg cap ORAL SCH (21:35)
[2018-11-16] MEDS: LORazepam 1mg tab ORAL SCH (21:35)
[2018-11-17] VITALS: BP 137/89
[2018-11-17] MEDS: Albuterol/Ipratropium 3ml neb HHN SCH ×4 (03:27→15:29)
[2018-11-17] MEDS: Vancomycin 1gm/D5W 275ml IVPB SCH ×4 (03:31→10:19)
[2018-11-17 04:00] VITALS: BP 146/88
--- NOTE | 2018-11-17 04:37 | NUR ---
NURSE NOTES: Stuart aware that Vanco trough was not drawn due to [employer] downtime and Vanco dose was given. She said, she will send a note to the hospital pharmacy and wait for them to decide for the next Vanco trough.
[2018-11-17] MEDS: Meropenem 1 GM in NS 55 ML IVPB SCH ×3 (05:24→23:08)
--- NOTE | 2018-11-17 07:07 | NUR ---
HAND-OFF: Report given to BEVERLY Walter.
[2018-11-17 08:00] VITALS: BP 141/84
--- NOTE | 2018-11-17 08:07 | NUR ---
NURSE NOTES: Report received from Tito PAUL. PT in bed, awake, talkative, no complaints of pain, bed in lowest position, call light within reach.
[2018-11-17] MEDS: Sennosides 8.6mg tab ORAL SCH ×2 (08:21→17:56)
[2018-11-17] MEDS: levETIRAcetam 500mg/5ml Liquid ORAL SCH ×2 (08:21→17:55)
[2018-11-17] MEDS: Losartan 50mg tab ORAL SCH (08:21)
[2018-11-17] MEDS: Docusate 100mg cap ORAL SCH ×2 (08:22→17:56)
[2018-11-17] MEDS: Sodium Chloride 1gm Tab ORAL SCH ×2 (08:24→17:55)
[2018-11-17] MEDS: Heparin 5000 units/ml inj SUBQ SCH ×2 (08:24→20:20)
--- NOTE | 2018-11-17 09:37 | General Progress Note ---
Assessment/Plan Assessment/Plan 10 R sided PNA 2) Coag neg staph bacteremia 3) ESBL E. coli UTI Plan: IV ATB per ID D/C planning Subjective Allergies: Coded Allergies: No Known Allergies (Unverified , 07/20/15) Subjective He does not complain of much, no c/p or sob Objective Last 24 Hour Vital Signs Date Time Temp Pulse Resp B/P (MAP) Pulse Ox O2 Delivery O2 Flow Rate FiO2 11/17/18 09:05 65 18 98 Room Air 21 11/17/18 09:05 Room Air 11/17/18 08:21 141/84 11/17/18 08:00 97.5 78 20 141/84 (103) 96 11/17/18 04:00 98.2 85 16 146/88 (107) 97 11/17/18 03:14 69 18 98 Room Air 21 11/17/18 03:14 62 18 98 Room Air 21 11/17/18 00:00 98.3 68 17 137/89 (105) 99 11/16/18 23:38 67 18 98 Room Air 21 11/16/18 23:28 67 18 98 Room Air 21 11/16/18 21:00 Room Air 11/16/18 20:38 64 18 98 Room Air 21 11/16/18 20:28 63 18 98 Room Air 21 11/16/18 20:00 98.0 79 17 149/85 (106) 94 11/16/18 16:00 97.7 73 20 149/88 (108) 97 11/16/18 15:30 69 17 98 Room Air 21 11/16/18 15:19 68 17 97 Room Air 21 11/16/18 12:00 97.9 65 18 155/84 (107) 96 11/16/18 11:41 Room Air 21 11/16/18 11:41 Room Air 21 Intake and Output 11/16/18 11/17/18 19:00 07:00 Intake Total 1206.124 ml 956.292 ml Output Total 300 ml Balance 906.124 ml 956.292 ml Intake Oral 600 ml 480 ml IV Total 606.124 ml 476.292 ml Output Urine Total 300 ml # Voids 3 Height (Feet): 5 Height (Inches): 8.00 Weight (Pounds): 160 General Appearance: WD/WN, no apparent distress EENT: PERRL/EOMI Neck: non-tender Cardiovascular: normal rate, regular rhythm, no JVD Respiratory/Chest: lungs clear Abdomen: normal bowel sounds, non tender 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
[2018-11-17 12:00] VITALS: BP 142/82
--- NOTE | 2018-11-17 13:04 | Pulmonology Progress Note ---
Assessment/Plan Assessment/Plan Pneumonia, resolving urinary tract infection sepsis, resolved schizophrenia chronic obstructive pulmonary disease with exacerbation hypertension hypoxemia pulm status stable refusing some meds per RN no fevers nebs and suction abx per ID dc planning per Dr Loo Subjective Constitutional: Reports: no symptoms Respiratory: Denies: productive cough Allergies: Coded Allergies: No Known Allergies (Unverified , 07/20/15) Objective Last 24 Hour Vital Signs Date Time Temp Pulse Resp B/P (MAP) Pulse Ox O2 Delivery O2 Flow Rate FiO2 11/17/18 11:21 68 18 98 Room Air 21 11/17/18 11:11 64 18 98 Room Air 21 11/17/18 09:05 65 18 98 Room Air 21 11/17/18 09:05 Room Air 11/17/18 09:00 Room Air 11/17/18 08:21 141/84 11/17/18 08:00 97.5 78 20 141/84 (103) 96 11/17/18 04:00 98.2 85 16 146/88 (107) 97 11/17/18 03:14 69 18 98 Room Air 21 11/17/18 03:14 62 18 98 Room Air 21 11/17/18 00:00 98.3 68 17 137/89 (105) 99 11/16/18 23:38 67 18 98 Room Air 21 11/16/18 23:28 67 18 98 Room Air 21 11/16/18 21:00 Room Air 11/16/18 20:38 64 18 98 Room Air 21 11/16/18 20:28 63 18 98 Room Air 21 11/16/18 20:00 98.0 79 17 149/85 (106) 94 11/16/18 16:00 97.7 73 20 149/88 (108) 97 11/16/18 15:30 69 17 98 Room Air 21 11/16/18 15:19 68 17 97 Room Air 21 Intake and Output 11/16/18 11/17/18 18:59 06:59 Intake Total 1206.124 ml 956.292 ml Output Total 300 ml Balance 906.124 ml 956.292 ml Intake Oral 600 ml 480 ml IV Total 606.124 ml 476.292 ml Output Urine Total 300 ml # Voids 3 General Appearance: no acute distress HEENT: atraumatic Respiratory/Chest: lungs clear Cardiovascular: normal rate Current Medications Medications (Trade) Dose Ordered Sig/Nikolay Route PRN Reason Start Time Stop Time Status Last Admin Dose Admin Acetaminophen (Tylenol) 650 mg Q4H PRN ORAL Mild Pain (Pain Scale 1-3) 11/12/18 16:45 12/12/18 16:44 11/13/18 06:00 Acetaminophen (Tylenol) 650 mg Q4H PRN ORAL fever (temp>100.5F) 11/12/18 16:45 12/12/18 16:44 Albuterol/ Ipratropium (Albuterol/ Ipratropium) 3 ml Q2H PRN HHN Shortness of Breath 11/12/18 16:45 11/17/18 16:44 Albuterol/ Ipratropium (Albuterol/ Ipratropium) 3 ml Q4HRT HHN 11/12/18 19:00 11/17/18 18:59 11/17/18 11:11 Dextrose (Dextrose 50%) 25 ml Q30M PRN IV Hypoglycemia 11/12/18 16:45 12/12/18 16:44 Dextrose (Dextrose 50%) 50 ml Q30M PRN IV Hypoglycemia 11/12/18 16:45 12/12/18 16:44 Diphenhydramine HCl (Benadryl) 25 mg Q6H PRN ORAL Itching 11/12/18 16:45 12/12/18 16:44 Docusate Sodium (Colace) 100 mg TWICE A DAY ORAL 11/12/18 18:00 12/12/18 17:59 11/13/18 08:47 Famotidine (Pepcid) 20 mg BID ORAL 11/12/18 18:00 12/12/18 17:59 11/15/18 08:37 Gabapentin (Neurontin) 300 mg BID ORAL 11/12/18 18:00 12/12/18 17:59 11/17/18 08:23 Heparin Sodium (Porcine) (Heparin 5000 units/ml) 5,000 units EVERY 12 HOURS SUBQ 11/12/18 21:00 12/12/18 20:59 11/12/18 21:30 Levetiracetam (Keppra) 1,000 mg BID ORAL 11/12/18 18:00 12/12/18 17:59 11/17/18 08:21 Lorazepam (Ativan) 1 mg BEDTIME ORAL 11/12/18 21:00 11/19/18 20:59 11/16/18 21:35 Losartan Potassium (Cozaar) 50 mg DAILY ORAL 11/13/18 09:00 12/13/18 08:59 11/17/18 08:21 Meropenem 1 gm/ Sodium Chloride 55 ml @ 110 mls/hr Q8HR IVPB 11/14/18 14:00 11/19/18 13:59 11/17/18 05:24 Nitroglycerin (Ntg) 0.4 mg Q5M X 3 DOSES PRN SL Prn Chest Pain 11/12/18 16:45 12/12/18 16:44 Ondansetron HCl (Zofran) 4 mg Q6H PRN IVP Nausea & Vomiting 11/12/18 16:45 12/12/18 16:44 Polyethylene Glycol (Miralax) 17 gm HSPRN PRN ORAL Constipation 11/12/18 16:45 12/12/18 16:44 Risperidone (RisperDAL) 2 mg QHS ORAL 11/17/18 21:00 12/13/18 08:59 Sennosides (Senokot) 17.2 mg BID ORAL 11/12/18 18:00 12/12/18 17:59 11/13/18 08:47 Sodium Chloride (NaCl) 2 gm BID ORAL 11/13/18 09:00 12/13/18 08:59 11/17/18 08:24 Tamsulosin HCl (Flomax) 0.4 mg BEDTIME ORAL 11/12/18 21:00 12/12/18 20:59 11/16/18 21:35 Vancomycin HCl (Vanco rx to dose) 1 ea DAILY PRN MISC Per rx protocol 11/14/18 11:30 12/14/18 11:29 Vancomycin HCl 1 gm/Dextrose 275 ml @ 183.708 mls/hr Q8H IVPB 11/16/18 02:00 11/21/18 01:59 11/17/18 10:19 Trevin Hannon MD Nov 17, 2018 13:04
--- NOTE | 2018-11-17 14:14 | Infectious Diseases Prog Note ---
Assessment/Plan Assessment/Plan ASSESSMENT AND PLAN: 1. 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 endocarditis, sepsis, leukocytosis, fevers, pna, chest x-ray with atx/?chf now - meropenem and vancomycin - clinically improved - check TTE - f/u surveillance blood cultures - monitor labs - d/w Dr. Loo 2. continue treatment per primary and consultants 3. The patient has anemia. 4. Leukocytosis. 5. SIRS criteria and sepsis. 6. Hyponatremia. 7. History of schizophrenia. 8. COPD. 9. Acid thrush. 10. Hypertension. 11. Seizures. 12. Decreased gait. 13. No history of diabetes or cancer. 14. Malnutrition. 15. Hypertension per primary and consultants. 16. History of VFib in the past. 17. History of chronic kidney disease. 18. Insomnia. 19. No known allergies. 20. Family history is noncontributory. 21. Social history is negative. 22. MAR is noted. 23. Case discussed with RN. 24. Continue treatment per primary consultants. 25. Skin care per protocol. Subjective Constitutional: Denies: fever HEENT: Denies: congestion Respiratory: Denies: shortness of breath Cardiovascular: Denies: chest pain Gastrointestinal/Abdominal: Denies: nausea, vomiting, diarrhea Genitourinary: Reports: other - no lópez Neurologic: Denies: headache Psychiatric: Denies: depression Skin: Denies: rash Hematologic: Denies: bleeding Musculoskeletal: Denies: pain Allergies: Coded Allergies: No Known Allergies (Unverified , 07/20/15) Objective Vital Signs Last 24 Hour Vital Signs Date Time Temp Pulse Resp B/P (MAP) Pulse Ox O2 Delivery O2 Flow Rate FiO2 11/17/18 12:00 98.2 74 20 142/82 (102) 94 11/17/18 11:21 68 18 98 Room Air 21 11/17/18 11:11 64 18 98 Room Air 21 11/17/18 09:05 65 18 98 Room Air 21 11/17/18 09:05 Room Air 11/17/18 09:00 Room Air 11/17/18 08:21 141/84 11/17/18 08:00 97.5 78 20 141/84 (103) 96 11/17/18 04:00 98.2 85 16 146/88 (107) 97 11/17/18 03:14 69 18 98 Room Air 21 11/17/18 03:14 62 18 98 Room Air 21 11/17/18 00:00 98.3 68 17 137/89 (105) 99 11/16/18 23:38 67 18 98 Room Air 21 11/16/18 23:28 67 18 98 Room Air 21 11/16/18 21:00 Room Air 11/16/18 20:38 64 18 98 Room Air 21 11/16/18 20:28 63 18 98 Room Air 21 11/16/18 20:00 98.0 79 17 149/85 (106) 94 11/16/18 16:00 97.7 73 20 149/88 (108) 97 11/16/18 15:30 69 17 98 Room Air 21 11/16/18 15:19 68 17 97 Room Air 21 Height (Feet): 5 Height (Inches): 8.00 Weight (Pounds): 160 General Appearance: no acute distress HEENT: normocephalic, atraumatic, anicteric, mucous membranes moist Respiratory/Chest: lungs clear, normal breath sounds, no respiratory distress, no accessory muscle use, crackles/rales - few rhonchi and crackles but mostly clear bilateral Cardiovascular: normal rate, regular rhythm, no gallop/murmur Abdomen: normal bowel sounds, soft, non tender, no organomegaly, non distended Genitourinary: other - no lópez, no cva pain Extremities: no cyanosis Skin: no rash 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 Band of atelectasis or scarring is again demonstrated in the right perihilar region. There is questionably mild interstitial congestion, not definitely evident previously although findings could be attributable to slight differences in exposure technique. There is slight alteration the right hemidiaphragm, could indicate a small pleural effusion developing. Heart size is normal. Impression: Stable band of atelectasis or scarring right perihilar region Equivocal interstitial congestive changes. Correlate with clinical findings Possible developing small right pleural effusion Microbiology Date/Time Source Procedure Growth Status 11/12/18 13:49 Blood Blood Culture - Final Staphylococcus Epidermidis Complete 11/12/18 13:49 Nasal Nares Influenza Types A,B Antigen ([place]) - Final Complete 11/12/18 17:55 Urine,Clean Catch Urine Culture - Final Escherichia Coli - Esbl Complete 11/12/18 13:40 Rectum VRE Culture - Final NO VANCOMYCIN RESISTANT ENTEROCOCCUS ... Complete 11/12/18 13:40 Rectum - Final NO CARBAPENEM-RESISTANT ENTEROBACTERI... Complete Labs Test 11/16/18 00:10 11/16/18 04:45 11/16/18 05:00 Vancomycin Level Trough 6.9 ug/mL (5.0-12.0) White Blood Count 4.9 K/UL (4.8-10.8) Red Blood Count 3.30 M/UL (4.70-6.10) Hemoglobin 9.0 G/DL (14.2-18.0) Hematocrit 27.4 % (42.0-52.0) Mean Corpuscular Volume 83 FL (80-99) Mean Corpuscular Hemoglobin 27.2 PG (27.0-31.0) Mean Corpuscular Hemoglobin Concent 32.8 G/DL (32.0-36.0) Red Cell Distribution Width 14.0 % (11.6-14.8) Platelet Count 301 K/UL (150-450) Mean Platelet Volume 4.4 FL (6.5-10.1) Neutrophils (%) (Auto) 75.2 % (45.0-75.0) Lymphocytes (%) (Auto) 15.6 % (20.0-45.0) Monocytes (%) (Auto) 7.1 % (1.0-10.0) Eosinophils (%) (Auto) 1.2 % (0.0-3.0) Basophils (%) (Auto) 0.9 % (0.0-2.0) Sodium Level 134 MMOL/L (136-145) Potassium Level 2.7 MMOL/L (3.5-5.1) Chloride Level 98 MMOL/L (98-107) Carbon Dioxide Level 28 MMOL/L (21-32) Anion Gap 8 mmol/L (5-15) Blood Urea Nitrogen 5 mg/dL (7-18) Creatinine 0.5 MG/DL (0.55-1.30) Estimat Glomerular Filtration Rate > 60 mL/min (>60) Glucose Level 122 MG/DL (74-106) Osmolality 272 mOsm/kg (297-317) Calcium Level 8.5 MG/DL (8.5-10.1) Iron Level 44 ug/dL (50-175) Total Iron Binding Capacity 137 ug/dL (250-450) Percent Iron Saturation 32 % (15-50) Unsaturated Iron Binding 93 ug/dL (112-346) Ferritin 182 NG/ML (8-388) Vitamin B12 Level 732 PG/ML (193-986) Thyroid Stimulating Hormone (TSH) 0.838 uiU/mL (0.358-3.740) Urine Osmolality 223 mOsm/kg (429-449) Current Medications Medications (Trade) Dose Ordered Sig/Nikolay Route PRN Reason Start Time Stop Time Status Last Admin Dose Admin Acetaminophen (Tylenol) 650 mg Q4H PRN ORAL Mild Pain (Pain Scale 1-3) 11/12/18 16:45 12/12/18 16:44 11/13/18 06:00 Acetaminophen (Tylenol) 650 mg Q4H PRN ORAL fever (temp>100.5F) 11/12/18 16:45 12/12/18 16:44 Albuterol/ Ipratropium (Albuterol/ Ipratropium) 3 ml Q2H PRN HHN Shortness of Breath 11/12/18 16:45 11/17/18 16:44 Albuterol/ Ipratropium (Albuterol/ Ipratropium) 3 ml Q4HRT HHN 11/12/18 19:00 11/17/18 18:59 11/17/18 11:11 Dextrose (Dextrose 50%) 25 ml Q30M PRN IV Hypoglycemia 11/12/18 16:45 12/12/18 16:44 Dextrose (Dextrose 50%) 50 ml Q30M PRN IV Hypoglycemia 11/12/18 16:45 12/12/18 16:44 Diphenhydramine HCl (Benadryl) 25 mg Q6H PRN ORAL Itching 11/12/18 16:45 12/12/18 16:44 Docusate Sodium (Colace) 100 mg TWICE A DAY ORAL 11/12/18 18:00 12/12/18 17:59 11/13/18 08:47 Famotidine (Pepcid) 20 mg BID ORAL 11/12/18 18:00 12/12/18 17:59 11/15/18 08:37 Gabapentin (Neurontin) 300 mg BID ORAL 11/12/18 18:00 12/12/18 17:59 11/17/18 08:23 Heparin Sodium (Porcine) (Heparin 5000 units/ml) 5,000 units EVERY 12 HOURS SUBQ 11/12/18 21:00 12/12/18 20:59 11/12/18 21:30 Levetiracetam (Keppra) 1,000 mg BID ORAL 11/12/18 18:00 12/12/18 17:59 11/17/18 08:21 Lorazepam (Ativan) 1 mg BEDTIME ORAL 11/12/18 21:00 11/19/18 20:59 11/16/18 21:35 Losartan Potassium (Cozaar) 50 mg DAILY ORAL 11/13/18 09:00 12/13/18 08:59 11/17/18 08:21 Meropenem 1 gm/ Sodium Chloride 55 ml @ 110 mls/hr Q8HR IVPB 11/17/18 14:00 11/22/18 13:59 Nitroglycerin (Ntg) 0.4 mg Q5M X 3 DOSES PRN SL Prn Chest Pain 11/12/18 16:45 12/12/18 16:44 Ondansetron HCl (Zofran) 4 mg Q6H PRN IVP Nausea & Vomiting 11/12/18 16:45 12/12/18 16:44 Polyethylene Glycol (Miralax) 17 gm HSPRN PRN ORAL Constipation 11/12/18 16:45 12/12/18 16:44 Risperidone (RisperDAL) 2 mg QHS ORAL 11/17/18 21:00 12/13/18 08:59 Sennosides (Senokot) 17.2 mg BID ORAL 11/12/18 18:00 12/12/18 17:59 11/13/18 08:47 Sodium Chloride (NaCl) 2 gm BID ORAL 11/13/18 09:00 12/13/18 08:59 11/17/18 08:24 Tamsulosin HCl (Flomax) 0.4 mg BEDTIME ORAL 11/12/18 21:00 12/12/18 20:59 11/16/18 21:35 Vancomycin HCl (Vanco rx to dose) 1 ea DAILY PRN MISC Per rx protocol 11/14/18 11:30 12/14/18 11:29 Vancomycin HCl 1 gm/Dextrose 275 ml @ 183.708 mls/hr Q8H IVPB 11/16/18 02:00 11/21/18 01:59 11/17/18 10:19 Kassidy Chino MD Nov 17, 2018 14:14
[2018-11-17 16:00] VITALS: BP 135/83
--- NOTE | 2018-11-17 19:17 | NUR ---
HAND-OFF: Report given to BEVERLY Walker.
[2018-11-17 20:00] VITALS: BP 151/81
--- NOTE | 2018-11-17 20:00 | NUR ---
NURSE NOTES: Rev
--- NOTE | 2018-11-17 20:01 | NUR ---
NURSE NOTES: Received patient awake in bed, no s/s of acute distress, no c/o of pain at this time. IV site asymptomatic running TKO 10ml/hr. Urinal at the bedside. Contracted fingers noted. Bed on lowest position, 3 side rails up.
[2018-11-17] MEDS: Tamsulosin 0.4mg cap ORAL SCH (20:25)
[2018-11-17] MEDS: LORazepam 1mg tab ORAL SCH (20:26)
[2018-11-17] MEDS: Vancomycin 1.25gm Premix IVPB SCH (23:46)
[2018-11-18 04:00] VITALS: BP 148/79
[2018-11-18 05:16] LABS: BASOPHILS % (AUTO) 1.1 % (0.0-2.0); EOSINOPHILS % (AUTO) 1.7 % (0.0-3.0); HEMATOCRIT 30.4 % (42.0-52.0); MEAN CORPUSCULAR VOLUME 83 FL (80-99); MONOCYTES % (AUTO) 6.3 % (1.0-10.0); PLATELET COUNT 195 K/UL (150-450); RED BLOOD COUNT 3.65 M/UL (4.70-6.10); RED CELL DISTRIBUTION WIDTH 14.6 % (11.6-14.8); WHITE BLOOD COUNT 6.7 K/UL (4.8-10.8)
[2018-11-18 05:26] LABS: ANION GAP 3 mmol/L (5-15); BLOOD UREA NITROGEN 9 mg/dL (7-18); CALCIUM 9.2 MG/DL (8.5-10.1); CARBON DIOXIDE 31 MMOL/L (21-32); CHLORIDE 99 MMOL/L (98-107); CREATININE 0.5 MG/DL (0.55-1.30); POTASSIUM 4.5 MMOL/L (3.5-5.1); SODIUM 132 MMOL/L (136-145)
[2018-11-18] MEDS: Meropenem 1 GM in NS 55 ML IVPB SCH ×3 (05:29→22:39)
--- NOTE | 2018-11-18 07:09 | NUR ---
HAND-OFF: Report given to BEVERLY Johnson. Patient awake, stable.
[2018-11-18 08:00] VITALS: BP 132/93
[2018-11-18] MEDS: levETIRAcetam 500mg/5ml Liquid ORAL SCH ×2 (08:50→17:39)
[2018-11-18] MEDS: Sodium Chloride 1gm Tab ORAL SCH ×2 (08:50→17:39)
[2018-11-18] MEDS: Docusate 100mg cap ORAL SCH ×2 (08:50→17:39)
[2018-11-18] MEDS: Sennosides 8.6mg tab ORAL SCH ×2 (08:51→17:40)
[2018-11-18] MEDS: Heparin 5000 units/ml inj SUBQ SCH ×2 (08:51→20:12)
[2018-11-18] MEDS: Losartan 50mg tab ORAL SCH (08:51)
--- NOTE | 2018-11-18 09:33 | Cardiology Report ---
APPROVED REPORT EKG Measurement Heart [id number] Sinus tachycardia Left axis deviation Low voltage QRS Inferior infarct, age undetermined Abnormal ECG
--- NOTE | 2018-11-18 10:19 | NUR ---
NURSE NOTES: PT RESTING IN BED. IN NO APPARENT DISTRESS AT THIS TIME. DENIES PAIN. NO SOB OR RESPIRATORY DISTRESS NOTED. PT'S IV ACCESS FELL OFF PER PT. RN ATTEMPTED IV ACCESS X1, UNSUCCESSFUL. PT REFUSED ANY MORE ATTEMPTS AT THIS TIME. PT AGREES TO TRY AGAIN AT A LATER TIME. BED IN LOWEST POSITION WITH BEDSIDE RAILS X2 RAISED. CALL LIGHT WITHIN REACH.
[2018-11-18] MEDS: Vancomycin 1.25gm Premix IVPB SCH ×2 (11:59→23:08)
--- NOTE | 2018-11-18 11:59 | NUR ---
NURSE NOTES: PT REFUSING IV ACCESS. RESOURCE RN AND PRIMARY RN ATTEMPTED. EDUCATED ON IV ANTIBIOTICS BUT CONTINUED TO REFUSE.
[2018-11-18 12:00] VITALS: BP 130/81
--- NOTE | 2018-11-18 14:17 | NUR ---
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 SEPSIS VS: BP148/79, P 94, T 97.5, RR 20, SpO2 99 RBC 3.65, Hgb 10.0, Hct 30.4, Na 132, CR 0.5, Anion Gap 3 Swallow function video impression: Positive for penetration of thin and nectar thick liquid barium, as described. CXR Impression: Stable band of atelectasis or scarring right perihilar region IS:MEROPENEM 55ml IVPB NaCl 2gm GABAPENTIN 300mg MED/SURG STATUS
--- NOTE | 2018-11-18 15:48 | General Progress Note ---
Assessment/Plan Assessment/Plan 10 R sided PNA 2) Coag neg staph bacteremia 3) ESBL E. coli UTI Plan: IV ATB per ID Will get TTE Subjective Allergies: Coded Allergies: No Known Allergies (Unverified , 07/20/15) Subjective He does not complain of much, no c/p or sob, talked to ID, will need TTE due to staph bacteremia Objective Last 24 Hour Vital Signs Date Time Temp Pulse Resp B/P (MAP) Pulse Ox O2 Delivery O2 Flow Rate FiO2 11/18/18 12:00 97.7 62 20 130/81 (97) 99 11/18/18 09:00 Room Air 11/18/18 08:51 132/93 11/18/18 08:00 97.5 60 18 132/93 (106) 97 11/18/18 04:00 97.6 64 20 148/79 (102) 94 11/17/18 21:00 Room Air 11/17/18 20:00 98.4 80 20 151/81 (104) 95 11/17/18 16:00 97.7 79 17 135/83 (100) 95 Intake and Output 11/17/18 11/18/18 19:00 07:00 Intake Total 600 ml Output Total 400 ml 700 ml Balance 200 ml -700 ml Intake Oral 600 ml Output Urine Total 400 ml 700 ml Laboratory Tests 11/17/18 18:30: Vancomycin Level Trough 23.5H 11/18/18 04:42: White Blood Count 6.7, Red Blood Count 3.65L, Hemoglobin 10.0L, Hematocrit 30.4L , Mean Corpuscular Volume 83, Mean Corpuscular Hemoglobin 27.4, Mean Corpuscular Hemoglobin Concent 32.9, Red Cell Distribution Width 14.6, Platelet Count 195, Mean Platelet Volume 4.1L, Neutrophils (%) (Auto) 69.0, Lymphocytes ( %) (Auto) 22.0, Monocytes (%) (Auto) 6.3, Eosinophils (%) (Auto) 1.7, Basophils (%) (Auto) 1.1, Sodium Level 132L, Potassium Level 4.5, Chloride Level 99, Carbon Dioxide Level 31, Anion Gap 3L, Blood Urea Nitrogen 9, Creatinine 0.5L, Estimat Glomerular Filtration Rate > 60, Glucose Level 92, Calcium Level 9.2, Cortisol AM Sample 12.7 Height (Feet): 5 Height (Inches): 8.00 Weight (Pounds): 160 General Appearance: no apparent distress, alert EENT: PERRL/EOMI Neck: non-tender Cardiovascular: normal rate, regular rhythm Respiratory/Chest: lungs clear, decreased breath sounds Abdomen: normal bowel sounds, non tender, 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
[2018-11-18 16:00] VITALS: BP 145/87
--- NOTE | 2018-11-18 19:32 | NUR ---
HAND-OFF: Report given to Andrew DAVIS RN.
[2018-11-18 20:00] VITALS: BP 145/84
[2018-11-18] MEDS: Tamsulosin 0.4mg cap ORAL SCH (20:15)
[2018-11-18] MEDS: LORazepam 1mg tab ORAL SCH (20:15)
[2018-11-19] VITALS: BP 141/75
--- NOTE | 2018-11-19 01:57 | NUR ---
NURSE NOTES: Received patient awake in bed, able to verbalize needs. IV dressing reinforced. Safety precautions and seizure prea Addendum: 11/19/18 at 0158 by Enio Pfeiffer RN ...and seizure precautions taken. No s/s of acute distress.
[2018-11-19 04:00] VITALS: BP 156/68
[2018-11-19] MEDS: Meropenem 1 GM in NS 55 ML IVPB SCH ×3 (05:12→22:07)
--- NOTE | 2018-11-19 06:43 | NUR ---
HAND-OFF: Report given to BEVERLY Johnson.
[2018-11-19 08:00] VITALS: BP 123/74
[2018-11-19] MEDS: Sennosides 8.6mg tab ORAL SCH ×2 (08:25→17:11)
[2018-11-19] MEDS: Sodium Chloride 1gm Tab ORAL SCH ×2 (08:25→17:03)
[2018-11-19] MEDS: Docusate 100mg cap ORAL SCH ×2 (08:25→17:11)
[2018-11-19] MEDS: levETIRAcetam 500mg/5ml Liquid ORAL SCH ×2 (08:25→17:03)
[2018-11-19] MEDS: Heparin 5000 units/ml inj SUBQ SCH ×2 (08:26→22:12)
[2018-11-19] MEDS: Losartan 50mg tab ORAL SCH (09:45)
--- NOTE | 2018-11-19 10:00 | NUR ---
NURSE NOTES: PT REFUSES LAXATIVES AND HEPARIN INJECTIONS. PT EDUCATED ON RISKS AND BENEFITS BUT PT CONTINUES TO REFUSE, STATING "I DON'T NEED IT!".
[2018-11-19] MEDS: Vancomycin 1.25gm Premix IVPB SCH ×2 (11:05→23:06)
[2018-11-19 12:00] VITALS: BP 117/75
--- NOTE | 2018-11-19 15:55 | Infectious Diseases Prog Note ---
Assessment/Plan Assessment/Plan ASSESSMENT AND PLAN: 1. esbl e.coli uti, ccna bacteremia - 4/4 bottles, ? endocarditis, sepsis, leukocytosis, fevers, pna, chest x-ray with atx/?chf now - meropenem and vancomycin - day # 5 abx - clinically improved, fevers and leukocytosis resolved - check TTE - surveillance blood cultures negative - monitor labs - may need KWAKU 2. continue treatment per primary and consultants 3. The patient has anemia. 4. Leukocytosis. 5. SIRS criteria and sepsis. 6. Hyponatremia. 7. History of schizophrenia. 8. COPD. 9. Acid thrush. 10. Hypertension. 11. Seizures. 12. Decreased gait. 13. No history of diabetes or cancer. 14. Malnutrition. 15. Hypertension per primary and consultants. 16. History of VFib in the past. 17. History of chronic kidney disease. 18. Insomnia. 19. No known allergies. 20. Family history is noncontributory. 21. Social history is negative. 22. MAR is noted. 23. Case discussed with RN. 24. Continue treatment per primary consultants. 25. Skin care per protocol. Subjective Constitutional: Denies: fever HEENT: Denies: congestion Respiratory: Denies: shortness of breath Cardiovascular: Denies: chest pain Gastrointestinal/Abdominal: Denies: nausea, vomiting, diarrhea Genitourinary: Reports: other - + lópez Neurologic: Denies: headache Psychiatric: Denies: depression Skin: Denies: rash Hematologic: Denies: bleeding Musculoskeletal: Denies: pain Allergies: Coded Allergies: No Known Allergies (Unverified , 07/20/15) Objective Vital Signs Last 24 Hour Vital Signs Date Time Temp Pulse Resp B/P (MAP) Pulse Ox O2 Delivery O2 Flow Rate FiO2 11/19/18 12:00 98.3 76 18 117/75 (89) 95 11/19/18 09:45 123/74 11/19/18 09:00 Room Air 11/19/18 08:00 97.5 96 18 123/74 (90) 94 11/19/18 04:00 97.8 62 18 156/68 (97) 94 11/19/18 00:00 97.9 59 17 141/75 (97) 94 11/18/18 23:17 Room Air 11/18/18 20:00 98.1 65 17 145/84 (104) 95 3/14/19 16:00 98.2 58 20 145/87 (106) 97 Height (Feet): 5 Height (Inches): 8.00 Weight (Pounds): 160 General Appearance: no acute distress HEENT: normocephalic, atraumatic, anicteric, mucous membranes moist, EOMI, pharynx normal, supple, no JVD Respiratory/Chest: lungs clear, normal breath sounds, no respiratory distress, no accessory muscle use Cardiovascular: normal rate, regular rhythm, no gallop/murmur, no JVD Abdomen: normal bowel sounds, soft, non tender, no organomegaly, non distended Genitourinary: other Extremities: no cyanosis Skin: no rash Neurologic/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 Band of atelectasis or scarring is again demonstrated in the right perihilar region. There is questionably mild interstitial congestion, not definitely evident previously although findings could be attributable to slight differences in exposure technique. There is slight alteration the right hemidiaphragm, could indicate a small pleural effusion developing. Heart size is normal. Impression: Stable band of atelectasis or scarring right perihilar region Equivocal interstitial congestive changes. Correlate with clinical findings Possible developing small right pleural effusion Microbiology Date/Time Source Procedure Growth Status 11/16/18 04:45 Blood Blood Culture - Preliminary NO GROWTH AFTER 48 HOURS Resulted 11/12/18 13:49 Nasal Nares Influenza Types A,B Antigen ([place]) - Final Complete 11/12/18 17:55 Urine,Clean Catch Urine Culture - Final Escherichia Coli - Esbl Complete 11/12/18 13:40 Rectum VRE Culture - Final NO VANCOMYCIN RESISTANT ENTEROCOCCUS ... Complete 11/12/18 13:40 Rectum - Final NO CARBAPENEM-RESISTANT ENTEROBACTERI... Complete Labs Test 11/17/18 18:30 11/18/18 04:42 Vancomycin Level Trough 23.5 ug/mL (5.0-12.0) White Blood Count 6.7 K/UL (4.8-10.8) Red Blood Count 3.65 M/UL (4.70-6.10) Hemoglobin 10.0 G/DL (14.2-18.0) Hematocrit 30.4 % (42.0-52.0) Mean Corpuscular Volume 83 FL (80-99) Mean Corpuscular Hemoglobin 27.4 PG (27.0-31.0) Mean Corpuscular Hemoglobin Concent 32.9 G/DL (32.0-36.0) Red Cell Distribution Width 14.6 % (11.6-14.8) Platelet Count 195 K/UL (150-450) Mean Platelet Volume 4.1 FL (6.5-10.1) Neutrophils (%) (Auto) 69.0 % (45.0-75.0) Lymphocytes (%) (Auto) 22.0 % (20.0-45.0) Monocytes (%) (Auto) 6.3 % (1.0-10.0) Eosinophils (%) (Auto) 1.7 % (0.0-3.0) Basophils (%) (Auto) 1.1 % (0.0-2.0) Sodium Level 132 MMOL/L (136-145) Potassium Level 4.5 MMOL/L (3.5-5.1) Chloride Level 99 MMOL/L (98-107) Carbon Dioxide Level 31 MMOL/L (21-32) Anion Gap 3 mmol/L (5-15) Blood Urea Nitrogen 9 mg/dL (7-18) Creatinine 0.5 MG/DL (0.55-1.30) Estimat Glomerular Filtration Rate > 60 mL/min (>60) Glucose Level 92 MG/DL (74-106) Calcium Level 9.2 MG/DL (8.5-10.1) Cortisol AM Sample 12.7 UG/DL Current Medications Medications (Trade) Dose Ordered Sig/Nikolay Route PRN Reason Start Time Stop Time Status Last Admin Dose Admin Acetaminophen (Tylenol) 650 mg Q4H PRN ORAL Mild Pain (Pain Scale 1-3) 11/12/18 16:45 12/12/18 16:44 11/13/18 06:00 Acetaminophen (Tylenol) 650 mg Q4H PRN ORAL fever (temp>100.5F) 11/12/18 16:45 12/12/18 16:44 Dextrose (Dextrose 50%) 25 ml Q30M PRN IV Hypoglycemia 11/12/18 16:45 12/12/18 16:44 Dextrose (Dextrose 50%) 50 ml Q30M PRN IV Hypoglycemia 11/12/18 16:45 12/12/18 16:44 Diphenhydramine HCl (Benadryl) 25 mg Q6H PRN ORAL Itching 11/12/18 16:45 12/12/18 16:44 Docusate Sodium (Colace) 100 mg TWICE A DAY ORAL 11/12/18 18:00 12/12/18 17:59 11/13/18 08:47 Famotidine (Pepcid) 20 mg BID ORAL 11/12/18 18:00 12/12/18 17:59 11/15/18 08:37 Gabapentin (Neurontin) 300 mg BID ORAL 11/12/18 18:00 12/12/18 17:59 11/19/18 08:25 Heparin Sodium (Porcine) (Heparin 5000 units/ml) 5,000 units EVERY 12 HOURS SUBQ 11/12/18 21:00 12/12/18 20:59 11/12/18 21:30 Levetiracetam (Keppra) 1,000 mg BID ORAL 11/12/18 18:00 12/12/18 17:59 11/19/18 08:25 Lorazepam (Ativan) 1 mg BEDTIME ORAL 11/12/18 21:00 11/19/18 20:59 11/18/18 20:15 Losartan Potassium (Cozaar) 50 mg DAILY ORAL 11/13/18 09:00 12/13/18 08:59 11/17/18 08:21 Meropenem 1 gm/ Sodium Chloride 55 ml @ 110 mls/hr Q8HR IVPB 11/17/18 14:00 11/22/18 13:59 11/19/18 14:33 Nitroglycerin (Ntg) 0.4 mg Q5M X 3 DOSES PRN SL Prn Chest Pain 11/12/18 16:45 12/12/18 16:44 Ondansetron HCl (Zofran) 4 mg Q6H PRN IVP Nausea & Vomiting 11/12/18 16:45 12/12/18 16:44 Polyethylene Glycol (Miralax) 17 gm HSPRN PRN ORAL Constipation 11/12/18 16:45 12/12/18 16:44 Risperidone (RisperDAL) 2 mg QHS ORAL 11/17/18 21:00 12/13/18 08:59 11/18/18 20:15 Sennosides (Senokot) 17.2 mg BID ORAL 11/12/18 18:00 12/12/18 17:59 11/13/18 08:47 Sodium Chloride (NaCl) 2 gm BID ORAL 11/13/18 09:00 12/13/18 08:59 11/19/18 08:25 Tamsulosin HCl (Flomax) 0.4 mg BEDTIME ORAL 11/12/18 21:00 12/12/18 20:59 11/18/18 20:15 Vancomycin HCl (Vanco rx to dose) 1 ea DAILY PRN MISC Per rx protocol 11/14/18 11:30 12/14/18 11:29 Vancomycin HCl/ Dextrose 275 ml @ 183.333 mls/hr Q12HR@1100,2300 IVPB 11/17/18 23:00 11/22/18 22:59 11/19/18 11:05 Kassidy Chino MD Nov 19, 2018 15:55
[2018-11-19 16:00] VITALS: BP 138/77
--- NOTE | 2018-11-19 17:46 | NUR ---
NURSE NOTES: PT CONTINUES TO REFUSE SCHEDULED COLACE AND SENNA. PT STATES HE DOESN'T NEED IT. PT EDUCATED HE HAS NOT HAD A BM SINCE 11/15/18. PT CONTINUES TO REFUSE.
--- NOTE | 2018-11-19 19:22 | NUR ---
HAND-OFF: Report given to Andrew DUFFY RN.
[2018-11-19 20:00] VITALS: BP 134/74
--- NOTE | 2018-11-19 20:00 | NUR ---
NURSE NOTES: Patient in bed, awake, alert resting, able to make needs known. Respirations even and unlabored. No complaint of pain or discomfort noted. Bed in low position and locked. Iv site is noted- patent and asymptomatic- l hand 24 g. Skin is warm and dry to touch. Patient is on fluid restriction, only 200 ml until midnight, patient is aware. Call light is within reach. Will continue plan of care.
--- NOTE | 2018-11-19 20:06 | NUR ---
NURSE NOTES: Patient in bed, awake, alert, able to make simple needs known. Respiration is even and unlabored. No complaint of pain or discomfort noted. Bed in low and locked position. Iv site is noted. Skin is warm and dry to touch. Kept clean and comfortable. Patient is in fluid restriction, patient is aware. Call light is at bedside. Will continue plan of care.
--- NOTE | 2018-11-19 20:14 | General Progress Note ---
Assessment/Plan Assessment/Plan 10 R sided PNA 2) Coag neg staph bacteremia 3) ESBL E. coli UTI Plan: IV ATB per ID Will need KWAKU Subjective Allergies: Coded Allergies: No Known Allergies (Unverified , 07/20/15) Subjective He does not complain of much, no c/p or sob, TTE was negative for vegetation Objective Last 24 Hour Vital Signs Date Time Temp Pulse Resp B/P (MAP) Pulse Ox O2 Delivery O2 Flow Rate FiO2 11/19/18 16:00 98.1 72 18 138/77 (97) 96 11/19/18 12:00 98.3 76 18 117/75 (89) 95 11/19/18 09:45 123/74 11/19/18 09:00 Room Air 11/19/18 08:00 97.5 96 18 123/74 (90) 94 11/19/18 04:00 97.8 62 18 156/68 (97) 94 11/19/18 00:00 97.9 59 17 141/75 (97) 94 11/18/18 23:17 Room Air Intake and Output 11/18/18 11/19/18 18:59 06:59 Intake Total 55 ml 840 ml Balance 55 ml 840 ml Intake Oral 840 ml IV Total 55 ml # Voids 5 1 Height (Feet): 5 Height (Inches): 8.00 Weight (Pounds): 160 General Appearance: WD/WN, no apparent distress, alert EENT: PERRL/EOMI, TMs normal Neck: non-tender, normal alignment, supple Cardiovascular: normal rate, regular rhythm, no JVD Respiratory/Chest: lungs clear, decreased breath sounds Abdomen: non tender, soft 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
[2018-11-19] MEDS: Tamsulosin 0.4mg cap ORAL SCH (22:07)
--- NOTE | 2018-11-19 22:10 | NUR ---
NURSE NOTES: Patient awake, in bed. Patient refusing to have blood draw. Educated the patient regarding blood draw, still refused. Informed re dye hand. Charge nurse made aware. Informed pharmacist, hermelinda carlisle will be done tomorrow. Will endorse to next shift if patient refuses to inform MD regarding the matter.
[2018-11-20 04:00] VITALS: BP 141/84
[2018-11-20] MEDS: Meropenem 1 GM in NS 55 ML IVPB SCH ×3 (05:10→21:02)
--- NOTE | 2018-11-20 06:52 | NUR ---
NURSE NOTES: Lab informed nurse that patient refused lab draw
--- NOTE | 2018-11-20 07:38 | NUR ---
HAND-OFF: Report given to BEVERLY Mckeon.
[2018-11-20 08:00] VITALS: BP 121/70
--- NOTE | 2018-11-20 08:21 | NUR ---
NURSE NOTES: Pt sleeping. Will require to be repositioned through out shift
[2018-11-20] MEDS: Heparin 5000 units/ml inj SUBQ SCH ×4 (09:00→20:56)
[2018-11-20] MEDS: Losartan 50mg tab ORAL SCH (09:55)
[2018-11-20] MEDS: Docusate 100mg cap ORAL SCH ×2 (09:55→18:02)
[2018-11-20] MEDS: Sennosides 8.6mg tab ORAL SCH ×2 (09:56→18:02)
[2018-11-20] MEDS: Sodium Chloride 1gm Tab ORAL SCH ×2 (09:56→18:02)
[2018-11-20] MEDS: levETIRAcetam 500mg/5ml Liquid ORAL SCH ×2 (09:57→18:00)
[2018-11-20 09:59] LABS: BASOPHILS % (AUTO) 0.9 % (0.0-2.0); EOSINOPHILS % (AUTO) 1.4 % (0.0-3.0); HEMATOCRIT 31.6 % (42.0-52.0); HEMOGLOBIN 10.1 G/DL (14.2-18.0); LYMPHOCYTES % (AUTO) 24.1 % (20.0-45.0); MEAN CORPUSCULAR VOLUME 84 FL (80-99); MONOCYTES % (AUTO) 8.1 % (1.0-10.0); NEUTROPHILS % (AUTO) 65.6 % (45.0-75.0); PLATELET COUNT 370 K/UL (150-450); RED BLOOD COUNT 3.76 M/UL (4.70-6.10); RED CELL DISTRIBUTION WIDTH 15.3 % (11.6-14.8); WHITE BLOOD COUNT 6.4 K/UL (4.8-10.8)
[2018-11-20 10:38] LABS: ANION GAP 2 mmol/L (5-15); BLOOD UREA NITROGEN 17 mg/dL (7-18); CARBON DIOXIDE 32 MMOL/L (21-32); CHLORIDE 99 MMOL/L (98-107); CREATININE 0.6 MG/DL (0.55-1.30); POTASSIUM 4.1 MMOL/L (3.5-5.1); SODIUM 133 MMOL/L (136-145)
[2018-11-20] MEDS ORDERED: NS 500ML ONE (15:55)
[2018-11-20] MEDS ORDERED: Tubing IV Secondary IV ONE (15:55)
[2018-11-20 16:00] VITALS: BP 130/63
--- NOTE | 2018-11-20 17:51 | General Progress Note ---
Assessment/Plan Problem List: (1) Epilepsy ICD Codes: G40.909 - Epilepsy, unspecified, not intractable, without status epilepticus SNOMED: 92185074 (2) COPD (chronic obstructive pulmonary disease) ICD Codes: J44.9 - Chronic obstructive pulmonary disease, unspecified SNOMED: 71285533 (3) BPH (benign prostatic hyperplasia) ICD Codes: N40.0 - Benign prostatic hyperplasia without lower urinary tract symptoms SNOMED: 897286965 (4) Pyelonephritis ICD Codes: N12 - Tubulo-interstitial nephritis, not specified as acute or chronic SNOMED: 30559998 (5) Hyponatremia ICD Codes: E87.1 - Hypo-osmolality and hyponatremia SNOMED: 12419554 (6) Sepsis ICD Codes: A41.9 - Sepsis, unspecified organism SNOMED: 30496067 Assessment/Plan uti esbl, coag neg staph bacteremia, poor nutrition, continue iv antibiotics, encourage diet Subjective Constitutional: Reports: weakness HEENT: Reports: no symptoms Cardiovascular: Reports: no symptoms Respiratory: Reports: cough Gastrointestinal/Abdominal: Reports: other - heartburn Genitourinary: Reports: incontinence Neurologic/Psychiatric: Reports: emotional problems Endocrine: Reports: no symptoms Hematologic/Lymphatic: Reports: no symptoms Allergies: Coded Allergies: No Known Allergies (Unverified , 07/20/15) Objective Last 24 Hour Vital Signs Date Time Temp Pulse Resp B/P (MAP) Pulse Ox O2 Delivery O2 Flow Rate FiO2 11/20/18 16:00 98.6 100 16 130/63 (85) 11/20/18 09:55 121/71 11/20/18 09:00 Room Air 11/20/18 08:00 97.9 100 16 121/70 (87) 11/20/18 04:00 97.7 72 18 141/84 (103) 97 11/19/18 21:00 Room Air 11/19/18 20:00 98.0 81 16 134/74 (94) 99 Intake and Output 11/19/18 11/20/18 19:00 07:00 Intake Total 1080.000 ml 385.000 ml Output Total 650 ml Balance 430.000 ml 385.000 ml Intake Oral 750 ml IV Total 330.000 ml 385.000 ml Output Urine Total 650 ml # Voids 2 Laboratory Tests 11/20/18 09:50: White Blood Count 6.4, Red Blood Count 3.76L, Hemoglobin 10.1L, Hematocrit 31.6L , Mean Corpuscular Volume 84, Mean Corpuscular Hemoglobin 26.8L, Mean Corpuscular Hemoglobin Concent 31.9L, Red Cell Distribution Width 15.3H, Platelet Count 370, Mean Platelet Volume 4.1L, Neutrophils (%) (Auto) 65.6, Lymphocytes (%) (Auto) 24.1, Monocytes (%) (Auto) 8.1, Eosinophils (%) (Auto) 1.4, Basophils (%) (Auto) 0.9, Sodium Level 133L, Potassium Level 4.1, Chloride Level 99, Carbon Dioxide Level 32, Anion Gap 2L, Blood Urea Nitrogen 17, Creatinine 0.6, Estimat Glomerular Filtration Rate > 60, Glucose Level 120H, Calcium Level 9.0, Vancomycin Level Trough 21.2H Height (Feet): 5 Height (Inches): 8.00 Weight (Pounds): 160 General Appearance: no apparent distress, alert, thin EENT: normal ENT inspection Neck: normal alignment, supple Cardiovascular: regular rhythm Respiratory/Chest: lungs clear Abdomen: non tender, soft Edema: no edema noted Arm (L), no edema noted Arm (R), no edema noted Leg (L), no edema noted Leg (R), no edema noted Pedal (L), no edema noted Pedal (R), no edema noted Generalized Liam Carpenter MD Nov 20, 2018 17:51
[2018-11-20] MEDS: Vancomycin 1gm in D5W 275ml IVPB SCH (18:03)
--- NOTE | 2018-11-20 19:30 | NUR ---
NURSE NOTES: Received patient on bed awake, no s/s of any distress, denies any pain, IV line patent and intact, Bed in low position and locked, call light within reach, will continue to monitor.
[2018-11-20 20:00] VITALS: BP 139/85
[2018-11-20] MEDS: Tamsulosin 0.4mg cap ORAL SCH (20:47)
[2018-11-21] VITALS: BP 145/89
[2018-11-21 04:00] VITALS: BP 138/72
--- NOTE | 2018-11-21 04:45 | Consultation ---
DATE OF CONSULTATION: 11/20/2018 CARDIOLOGY CONSULTATION CONSULTING PHYSICIAN: Damian Harper M.D. REASON FOR EVALUATION: Endocarditis. HISTORY OF PRESENT ILLNESS: This is a 68-year-old male, who lives in an assisted living facility. He was admitted to the hospital a week ago with cough, congestion, and shortness of breath. He has been started on antimicrobials. His blood cultures were positive 4/4 for coag-negative Staph. Complaint has been raised over endocarditis prompting this consultation. PAST MEDICAL HISTORY: COPD, osteoarthritis, hyponatremia, seizure disorder, and schizophrenia. MEDICATIONS: Reviewed. ALLERGIES: None. FAMILY HISTORY: Noncontributory. SOCIAL HISTORY: Active smoker, 50 to 60 pack year history. No alcohol or substance abuse. REVIEW OF SYSTEMS: There is no record of gastric ulcerations, esophageal ulcerations, or GI bleeding at this time. There is no known history of prior endocarditis or rheumatic heart disease. There is no known history of cardiac arrhythmias. PHYSICAL EXAMINATION: VITAL SIGNS: Blood pressure 130/63, pulse 100, respiratory rate 16, and afebrile. GENERAL: Frail in appearance. LUNGS: Bilateral breath sounds. Scattered rhonchi. HEART: Regular rhythm and rate. Normal S1 and S2. No murmur. ABDOMEN: Soft. EXTREMITIES: No edema. IMPRESSION: 1. Coag-negative Staph bacteremia. 2. Sepsis. 3. COPD. 4. Schizophrenia. PLAN: 1. Antibiotics per Infectious Disease residential property consultant. 2. Transthoracic echocardiogram. 3. Consideration for transesophageal echocardiogram based on findings. Damian Harper M.D. DR: NAA JOB#: [id number] CC:
[2018-11-21] MEDS: Meropenem 1 GM in NS 55 ML IVPB SCH ×3 (05:11→21:15)
[2018-11-21] MEDS: Vancomycin 1gm in D5W 275ml IVPB SCH ×2 (06:11→18:13)
--- NOTE | 2018-11-21 07:33 | NUR ---
HAND-OFF: Report given to Joana PAUL.
[2018-11-21 08:00] VITALS: BP 137/78
--- NOTE | 2018-11-21 08:08 | NUR ---
NURSE NOTES: Late entry 11/20/18 hand off given to Song PAUL
--- NOTE | 2018-11-21 08:45 | NUR ---
NURSE NOTES: Pt family member called for an update, informed that was here yesterday and seen pt. Pt family member concerned with safety at the board and care. Sister informed that PT will be informed of concerns.
[2018-11-21] MEDS: Heparin 5000 units/ml inj SUBQ SCH ×2 (09:00→20:56)
[2018-11-21] MEDS: Docusate 100mg cap ORAL SCH ×2 (10:04→18:13)
[2018-11-21] MEDS: Sodium Chloride 1gm Tab ORAL SCH ×2 (10:05→18:14)
[2018-11-21] MEDS: Sennosides 8.6mg tab ORAL SCH ×2 (10:05→18:14)
[2018-11-21] MEDS: Losartan 50mg tab ORAL SCH (10:06)
[2018-11-21] MEDS: levETIRAcetam 500mg/5ml Liquid ORAL SCH ×2 (10:06→18:14)
--- NOTE | 2018-11-21 10:44 | General Progress Note ---
Assessment/Plan Problem List: (1) Epilepsy ICD Codes: G40.909 - Epilepsy, unspecified, not intractable, without status epilepticus SNOMED: 60763153 (2) COPD (chronic obstructive pulmonary disease) ICD Codes: J44.9 - Chronic obstructive pulmonary disease, unspecified SNOMED: 05552907 (3) BPH (benign prostatic hyperplasia) ICD Codes: N40.0 - Benign prostatic hyperplasia without lower urinary tract symptoms SNOMED: 565303843 (4) Pyelonephritis ICD Codes: N12 - Tubulo-interstitial nephritis, not specified as acute or chronic SNOMED: 54151243 (5) Hyponatremia ICD Codes: E87.1 - Hypo-osmolality and hyponatremia SNOMED: 43738257 (6) Sepsis ICD Codes: A41.9 - Sepsis, unspecified organism SNOMED: 59189518 Assessment/Plan uti esbl, coag neg staph bacteremia, poor nutrition, continue iv antibiotics, encourage diet, cardiol to assess for KWAKU Subjective HEENT: Reports: no symptoms Cardiovascular: Reports: no symptoms Respiratory: Reports: cough Gastrointestinal/Abdominal: Reports: no symptoms Genitourinary: Reports: incontinence Neurologic/Psychiatric: Reports: pre-existing deficit Endocrine: Reports: no symptoms Hematologic/Lymphatic: Reports: anemia Allergies: Coded Allergies: No Known Allergies (Unverified , 07/20/15) Objective Last 24 Hour Vital Signs Date Time Temp Pulse Resp B/P (MAP) Pulse Ox O2 Delivery O2 Flow Rate FiO2 11/21/18 10:06 126/72 11/21/18 04:00 98.9 96 18 138/72 (94) 96 11/21/18 00:00 98.6 89 17 145/89 (107) 98 11/20/18 21:00 Room Air 11/20/18 20:00 99.1 90 17 139/85 (103) 98 11/20/18 16:00 98.6 100 16 130/63 (85) Intake and Output 11/20/18 11/21/18 19:00 07:00 Intake Total 55 ml 1038.708 ml Output Total 800 ml Balance 55 ml 238.708 ml IV Total 55 ml 238.708 ml Other 800 ml Output Urine Total 800 ml # Bowel Movements 1 Height (Feet): 5 Height (Inches): 8.00 Weight (Pounds): 160 General Appearance: no apparent distress, alert EENT: normal ENT inspection Neck: normal alignment Cardiovascular: normal rate Respiratory/Chest: lungs clear Abdomen: non tender, soft Edema: no edema noted Arm (L), no edema noted Arm (R), no edema noted Leg (L), no edema noted Leg (R), no edema noted Pedal (L), no edema noted Pedal (R), no edema noted Generalized Neurologic: hospital product specialist II-XII grossly normal Liam Carpenter MD Nov 21, 2018 10:43
[2018-11-21 12:00] VITALS: BP 137/78
--- NOTE | 2018-11-21 13:16 | Infectious Diseases Prog Note ---
Assessment/Plan Assessment/Plan ASSESSMENT AND PLAN: 1. 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 endocarditis, sepsis, leukocytosis, fevers, pna, chest x-ray with atx/?chf now - meropenem and vancomycin - day # 7 abx - clinically improved, fevers and leukocytosis resolved - TTE without vegetations mentioned - surveillance blood cultures negative - monitor labs - may need KWAKU, cardiology consult noted 2. continue treatment per primary and consultants 3. The patient has anemia. 4. Leukocytosis. 5. SIRS criteria and sepsis. 6. Hyponatremia. 7. History of schizophrenia. 8. COPD. 9. Acid thrush. 10. Hypertension. 11. Seizures. 12. Decreased gait. 13. No history of diabetes or cancer. 14. Malnutrition. 15. Hypertension per primary and consultants. 16. History of VFib in the past. 17. History of chronic kidney disease. 18. Insomnia. 19. No known allergies. 20. Family history is noncontributory. 21. Social history is negative. 22. MAR is noted. 23. Case discussed with RN. 24. Continue treatment per primary consultants. 25. Skin care per protocol. Subjective Constitutional: Denies: fever HEENT: Denies: congestion Respiratory: Denies: shortness of breath Cardiovascular: Denies: chest pain Gastrointestinal/Abdominal: Denies: nausea, vomiting, diarrhea Genitourinary: Reports: other - + lópez ; Denies: hematuria Neurologic: Denies: headache Psychiatric: Denies: depression Skin: Denies: rash Hematologic: Denies: bleeding Musculoskeletal: Denies: pain Allergies: Coded Allergies: No Known Allergies (Unverified , 07/20/15) Objective Vital Signs Last 24 Hour Vital Signs Date Time Temp Pulse Resp B/P (MAP) Pulse Ox O2 Delivery O2 Flow Rate FiO2 11/21/18 10:06 126/72 11/21/18 04:00 98.9 96 18 138/72 (94) 96 11/21/18 00:00 98.6 89 17 145/89 (107) 98 11/20/18 21:00 Room Air 11/20/18 20:00 99.1 90 17 139/85 (103) 98 11/20/18 16:00 98.6 100 16 130/63 (85) Height (Feet): 5 Height (Inches): 8.00 Weight (Pounds): 160 General Appearance: no acute distress HEENT: normocephalic, atraumatic, anicteric, mucous membranes moist Respiratory/Chest: lungs clear, normal breath sounds, no respiratory distress, no accessory muscle use Cardiovascular: normal rate, regular rhythm, no gallop/murmur, no JVD Abdomen: normal bowel sounds, soft, non tender, no organomegaly, non distended Genitourinary: other - no lópez Extremities: no cyanosis Skin: no rash Neurologic/Psychiatric: oracle business analyst II-XII grossly normal, alert, responsive Lymphatic: no neck adenopathy Musculoskeletal: no effusion Objective 11/16/18 - chest x-ray - Comparison: 11/12/2018 Findings: Patient is rotated to the right. Band of atelectasis or scarring is again demonstrated in the right perihilar region. There is questionably mild interstitial congestion, not definitely evident previously although findings could be attributable to slight differences in exposure technique. There is slight alteration the right hemidiaphragm, could indicate a small pleural effusion developing. Heart size is normal. Impression: Stable band of atelectasis or scarring right perihilar region Equivocal interstitial congestive changes. Correlate with clinical findings Possible developing small right pleural effusion Microbiology Date/Time Source Procedure Growth Status 11/16/18 04:45 Blood Blood Culture - Preliminary NO GROWTH AFTER 4 DAYS Resulted 11/12/18 13:49 Nasal Nares Influenza Types A,B Antigen (ISRRAEL) - Final Complete 11/12/18 17:55 Urine,Clean Catch Urine Culture - Final Escherichia Coli - Esbl Complete 11/12/18 13:40 Rectum VRE Culture - Final NO VANCOMYCIN RESISTANT ENTEROCOCCUS ... Complete 11/12/18 13:40 Rectum - Final NO CARBAPENEM-RESISTANT ENTEROBACTERI... Complete Labs Test 11/20/18 09:50 White Blood Count 6.4 K/UL (4.8-10.8) Red Blood Count 3.76 M/UL (4.70-6.10) Hemoglobin 10.1 G/DL (14.2-18.0) Hematocrit 31.6 % (42.0-52.0) Mean Corpuscular Volume 84 FL (80-99) Mean Corpuscular Hemoglobin 26.8 PG (27.0-31.0) Mean Corpuscular Hemoglobin Concent 31.9 G/DL (32.0-36.0) Red Cell Distribution Width 15.3 % (11.6-14.8) Platelet Count 370 K/UL (150-450) Mean Platelet Volume 4.1 FL (6.5-10.1) Neutrophils (%) (Auto) 65.6 % (45.0-75.0) Lymphocytes (%) (Auto) 24.1 % (20.0-45.0) Monocytes (%) (Auto) 8.1 % (1.0-10.0) Eosinophils (%) (Auto) 1.4 % (0.0-3.0) Basophils (%) (Auto) 0.9 % (0.0-2.0) Sodium Level 133 MMOL/L (136-145) Potassium Level 4.1 MMOL/L (3.5-5.1) Chloride Level 99 MMOL/L (98-107) Carbon Dioxide Level 32 MMOL/L (21-32) Anion Gap 2 mmol/L (5-15) Blood Urea Nitrogen 17 mg/dL (7-18) Creatinine 0.6 MG/DL (0.55-1.30) Estimat Glomerular Filtration Rate > 60 mL/min (>60) Glucose Level 120 MG/DL (74-106) Calcium Level 9.0 MG/DL (8.5-10.1) Vancomycin Level Trough 21.2 ug/mL (5.0-12.0) Current Medications Medications (Trade) Dose Ordered Sig/Nikolay Route PRN Reason Start Time Stop Time Status Last Admin Dose Admin Acetaminophen (Tylenol) 650 mg Q4H PRN ORAL Mild Pain (Pain Scale 1-3) 11/12/18 16:45 12/12/18 16:44 11/21/18 01:47 Acetaminophen (Tylenol) 650 mg Q4H PRN ORAL fever (temp>100.5F) 11/12/18 16:45 12/12/18 16:44 11/21/18 06:57 Al Hydroxide/Mg Hydroxide (Mylanta) 30 ml FOUR TIMES A DAY ORAL 11/20/18 18:00 12/20/18 17:59 11/21/18 10:05 Dextrose (Dextrose 50%) 25 ml Q30M PRN IV Hypoglycemia 11/12/18 16:45 12/12/18 16:44 Dextrose (Dextrose 50%) 50 ml Q30M PRN IV Hypoglycemia 11/12/18 16:45 12/12/18 16:44 Diphenhydramine HCl (Benadryl) 25 mg Q6H PRN ORAL Itching 11/12/18 16:45 12/12/18 16:44 Docusate Sodium (Colace) 100 mg TWICE A DAY ORAL 11/12/18 18:00 12/12/18 17:59 11/21/18 10:04 Famotidine (Pepcid) 20 mg BID ORAL 11/12/18 18:00 12/12/18 17:59 11/21/18 10:05 Gabapentin (Neurontin) 300 mg BID ORAL 11/12/18 18:00 12/12/18 17:59 11/21/18 10:06 Heparin Sodium (Porcine) (Heparin 5000 units/ml) 5,000 units EVERY 12 HOURS SUBQ 11/12/18 21:00 12/12/18 20:59 11/19/18 22:12 Levetiracetam (Keppra) 1,000 mg BID ORAL 11/12/18 18:00 12/12/18 17:59 11/21/18 10:06 Losartan Potassium (Cozaar) 50 mg DAILY ORAL 11/13/18 09:00 12/13/18 08:59 11/21/18 10:06 Meropenem 1 gm/ Sodium Chloride 55 ml @ 110 mls/hr Q8HR IVPB 11/17/18 14:00 11/22/18 13:59 11/21/18 05:11 Nitroglycerin (Ntg) 0.4 mg Q5M X 3 DOSES PRN SL Prn Chest Pain 11/12/18 16:45 12/12/18 16:44 Ondansetron HCl (Zofran) 4 mg Q6H PRN IVP Nausea & Vomiting 11/12/18 16:45 12/12/18 16:44 Polyethylene Glycol (Miralax) 17 gm HSPRN PRN ORAL Constipation 11/12/18 16:45 12/12/18 16:44 Risperidone (RisperDAL) 2 mg QHS ORAL 11/17/18 21:00 12/13/18 08:59 11/20/18 20:47 Sennosides (Senokot) 17.2 mg BID ORAL 11/12/18 18:00 12/12/18 17:59 11/21/18 10:05 Sodium Chloride (NaCl) 2 gm BID ORAL 11/13/18 09:00 12/13/18 08:59 11/21/18 10:05 Tamsulosin HCl (Flomax) 0.4 mg BEDTIME ORAL 11/12/18 21:00 12/12/18 20:59 11/20/18 20:47 Vancomycin HCl (Vanco rx to dose) 1 ea DAILY PRN MISC Per rx protocol 11/14/18 11:30 12/14/18 11:29 Vancomycin HCl 1 gm/Dextrose 275 ml @ 183.708 mls/hr Q12HR@0600,1800 IVPB 11/20/18 18:00 11/25/18 17:59 11/21/18 06:11 Kassidy Chino MD Nov 21, 2018 13:15
[2018-11-21 16:00] VITALS: BP 110/68
--- NOTE | 2018-11-21 16:59 | NUR ---
NURSE NOTES: Pt called to nurse station multiple times through out shift to have his television changed. Pt instructed on how to use remote. " I cant t I can not move my hands" Pt noted feeding self, as well as pulling covers over self. Remote given demonstration given . Pt able to use remote control. Call light in reach, frequent room rounds made for anticipated needs
--- NOTE | 2018-11-21 17:01 | NUR ---
JAVA J2EE LEADCUSTODIAL MANAGER SI: PNA . SEPSIS VS: BP146/72, P 61, T 97.4, RR 17, SpO2 96 RBC 3.76, Hgb 10.1, Hct 31.6, Na 133 IS: MEROPENEM 55ml IVPB VANCOMYCIN 275mL NaCl 2gm COZAAR 50mg FLOMAX 0.4mg PEPCID 20mg GABAPENTIN 300mg KEPPRA 1000MG MED/SURG STATUS
[2018-11-21 20:00] VITALS: BP 146/72
--- NOTE | 2018-11-21 20:31 | NUR ---
NURSE NOTES: required pt teaching for repositioning, and elevation of feet. Pt refused. Pt has child like bx. Does not true mental capacity to fully understand rationale plan of care. Despite pt teaching reinforcement is required.
--- NOTE | 2018-11-21 20:33 | NUR ---
HAND-OFF: Report given to Tess PAUL.
[2018-11-21] MEDS: Tamsulosin 0.4mg cap ORAL SCH (20:41)
[2018-11-22] VITALS: BP 139/76
--- NOTE | 2018-11-22 01:15 | Progress Note ---
DATE: 11/21/2018 CARDIOLOGY PROGRESS NOTE SUBJECTIVE: The patient is without new distress. He continues on antimicrobials. He has positive bacteremia with coagulase-negative staphylococcus. OBJECTIVE: VITAL SIGNS: Blood pressure 138/72, pulse 96, and respirations 18. NECK: Supple. LUNGS: Clear. CARDIAC: Regular. Normal S1 and S2. A 1/6 systolic murmur at apex. ABDOMEN: Soft. EXTREMITIES: Without edema. DIAGNOSTIC DATA: Echocardiogram revealed mild aortic valve sclerosis, otherwise no signs of endocarditis. LABORATORY DATA: Reviewed. IMPRESSION AND PLAN: Coagulase-negative staphylococcus bacteremia, possible endocarditis. ____ blood cultures negative. We will review transthoracic echocardiogram and discuss with Infectious Disease it support consultant regarding indication for transesophageal echocardiogram. Damian Harper M.D. DR: EMMIE JOB#: [id number] CC:
[2018-11-22 04:00] VITALS: BP 134/78
[2018-11-22] MEDS: Meropenem 1 GM in NS 55 ML IVPB SCH ×3 (05:08→21:16)
[2018-11-22] MEDS: Vancomycin 1gm in D5W 275ml IVPB SCH ×2 (06:26→17:34)
--- NOTE | 2018-11-22 07:22 | NUR ---
HAND-OFF: Report given to Joana PAUL.
--- NOTE | 2018-11-22 08:15 | NUR ---
NURSE NOTES: Pt called nurses station phone requesting that his tray be pulled closer. Encouraged to use call light. Rack Room Worker placed call light in reach as well as demonstrated use . Able to push button successfully
[2018-11-22 08:49] LABS: BASOPHILS % (AUTO) 1.4 % (0.0-2.0); EOSINOPHILS % (AUTO) 2.4 % (0.0-3.0); HEMATOCRIT 30.9 % (42.0-52.0); HEMOGLOBIN 10.1 G/DL (14.2-18.0); LYMPHOCYTES % (AUTO) 32.6 % (20.0-45.0); MEAN CORPUSCULAR VOLUME 86 FL (80-99); MONOCYTES % (AUTO) 5.5 % (1.0-10.0); NEUTROPHILS % (AUTO) 58.1 % (45.0-75.0); PLATELET COUNT 302 K/UL (150-450); RED BLOOD COUNT 3.61 M/UL (4.70-6.10); RED CELL DISTRIBUTION WIDTH 15.5 % (11.6-14.8); WHITE BLOOD COUNT 5.3 K/UL (4.8-10.8)
[2018-11-22 08:56] LABS: ANION GAP 4 mmol/L (5-15); BLOOD UREA NITROGEN 15 mg/dL (7-18); CALCIUM 9.2 MG/DL (8.5-10.1); CARBON DIOXIDE 31 MMOL/L (21-32); CHLORIDE 101 MMOL/L (98-107); CREATININE 0.6 MG/DL (0.55-1.30); POTASSIUM 4.6 MMOL/L (3.5-5.1); SODIUM 136 MMOL/L (136-145)
[2018-11-22] MEDS: Heparin 5000 units/ml inj SUBQ SCH ×2 (09:00→21:00)
[2018-11-22] MEDS: Docusate 100mg cap ORAL SCH ×2 (10:19→17:32)
[2018-11-22] MEDS: Sennosides 8.6mg tab ORAL SCH ×2 (10:20→17:32)
[2018-11-22] MEDS: Sodium Chloride 1gm Tab ORAL SCH ×2 (10:20→17:33)
[2018-11-22] MEDS: levETIRAcetam 500mg/5ml Liquid ORAL SCH ×2 (10:20→17:33)
[2018-11-22] MEDS: Losartan 50mg tab ORAL SCH (10:21)
[2018-11-22 12:00] VITALS: BP 121/88
--- NOTE | 2018-11-22 13:12 | NUR ---
RD ASSESSMENT & RECOMMENDATIONS SEE CARE ACTIVITY FOR COMPLETE ASSESSMENT DAILY ESTIMATED NEEDS: Needs based on Pulmonary, wasting 61.8kg 25-30 kcals/kg 1988-5560 total kcals 1-1.5 g protein/kg 62-93 g total protein 25-30 mL/kg 7392-0178 total fluid mLs NUTRITION DIAGNOSIS: Swallowing difficulty r/t dysphagia as evidenced by LABEL CODER elvi yeager for MS chopped texture diet w/ NTL. CURRENT DIET:Regular MS chopped, NTL PO DIET RECOMMENDATIONS: [place]/ Regular diet (texture per LABEL CODER) ADDITIONAL RECOMMENDATIONS: 1) Obtain a calibrated bed scale wt OR standing weight -> Pt reports wt loss 2) Monitor Na level- on 1 L fluid restriction + 2g NaCL BID -> Na level normalized (11/22) 3) Check lytes daily, replete as needed 4) Monitor for continued good po intake 5) Ensure Enlive chocolate once daily
--- NOTE | 2018-11-22 18:11 | Nephrology Progress Note ---
Assessment/Plan Problem List: (1) Epilepsy (2) COPD (chronic obstructive pulmonary disease) (3) BPH (benign prostatic hyperplasia) (4) Pyelonephritis (5) Hyponatremia (6) Sepsis Plan to discuss with ID and Cardiology ree: KWAKU, continue iv antibiotics for esbl uti and coag neg staph sepsis Subjective Constitutional: Reports: no symptoms HEENT: Reports: no symptoms Genitourinary: Reports: incontinence Neurologic/Psychiatric: Reports: pre-existing deficit Objective Objective Last 24 Hour Vital Signs Date Time Temp Pulse Resp B/P (MAP) Pulse Ox O2 Delivery O2 Flow Rate FiO2 11/22/18 12:00 97.6 79 18 121/88 (99) 11/22/18 10:21 122/68 11/22/18 09:00 Room Air 11/22/18 04:00 97.4 61 17 134/78 (96) 97 11/22/18 00:00 98.6 66 17 139/76 (97) 96 11/21/18 21:00 Room Air 11/21/18 20:00 97.9 64 18 146/72 (96) 96 Intake and Output 11/21/18 11/22/18 19:00 07:00 Intake Total 55 ml 1470.000 ml Output Total 1200 ml Balance 55 ml 270.000 ml Intake Oral 240 ml IV Total 55 ml 330.000 ml Other 900 ml Output Urine Total 1200 ml # Voids 2 # Bowel Movements 1 Laboratory Tests 11/22/18 06:30: White Blood Count 5.3, Red Blood Count 3.61L, Hemoglobin 10.1L, Hematocrit 30.9L , Mean Corpuscular Volume 86, Mean Corpuscular Hemoglobin 27.9, Mean Corpuscular Hemoglobin Concent 32.6, Red Cell Distribution Width 15.5H, Platelet Count 302, Mean Platelet Volume 4.5L, Neutrophils (%) (Auto) 58.1, Lymphocytes (%) (Auto) 32.6, Monocytes (%) (Auto) 5.5, Eosinophils (%) (Auto) 2.4, Basophils (%) (Auto) 1.4, Sodium Level 136, Potassium Level 4.6, Chloride Level 101, Carbon Dioxide Level 31, Anion Gap 4L, Blood Urea Nitrogen 15, Creatinine 0.6, Estimat Glomerular Filtration Rate > 60, Glucose Level 72L, Calcium Level 9.2 Height (Feet): 5 Height (Inches): 8.00 Weight (Pounds): 160 General Appearance: no apparent distress, alert EENT: normal ENT inspection Neck: normal alignment Cardiovascular: normal rate, regular rhythm Respiratory/Chest: normal breath sounds, no respiratory distress Abdomen: non tender, soft Neurologic: automotive services manager II-XII grossly normal Liam Carpenter MD Nov 22, 2018 18:11
--- NOTE | 2018-11-22 19:30 | NUR ---
NURSE NOTES: Received patient in bed, awake, alert, intermittent confusion noted, VSS, afebrile, known to verbalize his needs, call light is within reach, bed is in low position, locked and alarm is on. Will continue to monitor for comfort and safety.
[2018-11-22 20:00] VITALS: BP 127/86
[2018-11-22] MEDS: Tamsulosin 0.4mg cap ORAL SCH (21:16)
[2018-11-23] VITALS: BP 124/78
[2018-11-23 04:00] VITALS: BP 126/78
--- NOTE | 2018-11-23 04:30 | Progress Note ---
DATE: 11/22/2018 CARDIOLOGY PROGRESS NOTE SUBJECTIVE: The patient remains on IV antimicrobials. Bacteremia is noted with coag-negative Staph. Source is not clear. Discussed with Infectious Disease sap payroll consultant in detail Dr. Chino. Recommendations for transesophageal echocardiogram to rule out endocarditis in this setting. I will discuss this with the patient and this consent is obtained. We will proceed. Damian Harper M.D. DR: YARY JOB#: [id number] CC:
[2018-11-23] MEDS: Meropenem 1 GM in NS 55 ML IVPB SCH ×3 (05:13→22:59)
[2018-11-23] MEDS: Vancomycin 1gm in D5W 275ml IVPB SCH (06:13)
--- NOTE | 2018-11-23 07:00 | NUR ---
HAND-OFF: Report given to Saba PAUL.
--- NOTE | 2018-11-23 07:49 | NUR ---
NURSE NOTES: Received report from BEVERLY Trevizo. Pt in bed, awake, talkative, no complaints of pain, bed in lowest position, call light within reach.
[2018-11-23 08:00] VITALS: BP 137/77
[2018-11-23 08:06] LABS: BASOPHILS % (AUTO) 1.2 % (0.0-2.0); EOSINOPHILS % (AUTO) 1.3 % (0.0-3.0); HEMATOCRIT 33.3 % (42.0-52.0); HEMOGLOBIN 10.6 G/DL (14.2-18.0); LYMPHOCYTES % (AUTO) 32.8 % (20.0-45.0); MEAN CORPUSCULAR VOLUME 86 FL (80-99); MONOCYTES % (AUTO) 6.8 % (1.0-10.0); NEUTROPHILS % (AUTO) 57.9 % (45.0-75.0); PLATELET COUNT 335 K/UL (150-450); RED BLOOD COUNT 3.89 M/UL (4.70-6.10); RED CELL DISTRIBUTION WIDTH 16.1 % (11.6-14.8); WHITE BLOOD COUNT 4.2 K/UL (4.8-10.8)
[2018-11-23 08:25] LABS: ANION GAP 5 mmol/L (5-15); BLOOD UREA NITROGEN 15 mg/dL (7-18); CALCIUM 9.1 MG/DL (8.5-10.1); CARBON DIOXIDE 31 MMOL/L (21-32); CHLORIDE 97 MMOL/L (98-107); CREATININE 0.7 MG/DL (0.55-1.30); POTASSIUM 4.4 MMOL/L (3.5-5.1); SODIUM 133 MMOL/L (136-145)
[2018-11-23] MEDS: Losartan 50mg tab ORAL SCH (08:40)
[2018-11-23] MEDS: levETIRAcetam 500mg/5ml Liquid ORAL SCH ×2 (08:40→17:07)
[2018-11-23] MEDS: Sodium Chloride 1gm Tab ORAL SCH ×2 (08:40→17:07)
[2018-11-23] MEDS: Docusate 100mg cap ORAL SCH ×2 (08:41→17:08)
[2018-11-23] MEDS: Sennosides 8.6mg tab ORAL SCH ×2 (08:41→17:07)
[2018-11-23] MEDS: Heparin 5000 units/ml inj SUBQ SCH ×2 (08:41→20:16)
[2018-11-23 12:00] VITALS: BP 137/78
--- NOTE | 2018-11-23 15:40 | Infectious Diseases Prog Note ---
Assessment/Plan Assessment/Plan ASSESSMENT AND PLAN: 1. 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 endocarditis, sepsis, leukocytosis, fevers, pna, chest x-ray with atx/?chf now - meropenem and vancomycin - day # 9 abx - clinically improved, fevers and leukocytosis resolved - TTE without vegetations - surveillance blood cultures negative - monitor labs - KWAKU planned - d/w Dr. Harper 2. continue treatment per primary and consultants 3. The patient has anemia. 4. Leukocytosis. 5. SIRS criteria and sepsis. 6. Hyponatremia. 7. History of schizophrenia. 8. COPD. 9. Acid thrush. 10. Hypertension. 11. Seizures. 12. Decreased gait. 13. No history of diabetes or cancer. 14. Malnutrition. 15. Hypertension per primary and consultants. 16. History of VFib in the past. 17. History of chronic kidney disease. 18. Insomnia. 19. No known allergies. 20. Family history is noncontributory. 21. Social history is negative. 22. MAR is noted. 23. Case discussed with RN. 24. Continue treatment per primary consultants. 25. Skin care per protocol. Subjective Constitutional: Denies: fever HEENT: Denies: congestion Respiratory: Denies: shortness of breath Cardiovascular: Denies: chest pain Gastrointestinal/Abdominal: Denies: nausea, vomiting Genitourinary: Reports: other - + lópez ; Denies: dysuria, hematuria Neurologic: Denies: headache Psychiatric: Denies: depression Skin: Denies: rash Hematologic: Denies: bleeding Musculoskeletal: Denies: pain Allergies: Coded Allergies: No Known Allergies (Unverified , 07/20/15) Objective Vital Signs Last 24 Hour Vital Signs Date Time Temp Pulse Resp B/P (MAP) Pulse Ox O2 Delivery O2 Flow Rate FiO2 11/23/18 12:00 97.9 65 16 137/78 (97) 96 11/23/18 09:00 Room Air 11/23/18 08:40 137/77 11/23/18 08:00 98.0 59 20 137/77 (97) 95 11/23/18 04:00 97.8 78 18 126/78 (94) 11/23/18 00:00 97.5 70 20 124/78 (93) 11/22/18 21:00 Room Air 11/22/18 20:00 98.5 86 18 127/86 (100) Height (Feet): 5 Height (Inches): 8.00 Weight (Pounds): 160 General Appearance: no acute distress HEENT: normocephalic, atraumatic, anicteric, mucous membranes moist Respiratory/Chest: lungs clear, normal breath sounds, no respiratory distress, no accessory muscle use Cardiovascular: normal rate, regular rhythm, no gallop/murmur, no JVD Abdomen: normal bowel sounds, soft, non tender, no organomegaly, non distended Genitourinary: other - + lópez Extremities: no cyanosis Skin: no rash Neurologic/Psychiatric: ophthalmic surgical assistant II-XII grossly normal, alert, responsive Lymphatic: no neck adenopathy Musculoskeletal: no effusion Objective 11/16/18 - chest x-ray - Comparison: 11/12/2018 Findings: Patient is rotated to the right. Band of atelectasis or scarring is again demonstrated in the right perihilar region. There is questionably mild interstitial congestion, not definitely evident previously although findings could be attributable to slight differences in exposure technique. There is slight alteration the right hemidiaphragm, could indicate a small pleural effusion developing. Heart size is normal. Impression: Stable band of atelectasis or scarring right perihilar region Equivocal interstitial congestive changes. Correlate with clinical findings Possible developing small right pleural effusion Microbiology Date/Time Source Procedure Growth Status 11/16/18 04:45 Blood Blood Culture - Final NO GROWTH AFTER 5 DAYS Complete 11/12/18 13:49 Nasal Nares Influenza Types A,B Antigen ([place]RA[place]) - Final Complete 11/12/18 17:55 Urine,Clean Catch Urine Culture - Final Escherichia Coli - Esbl Complete 11/12/18 13:40 Rectum VRE Culture - Final NO VANCOMYCIN RESISTANT ENTEROCOCCUS ... Complete 11/12/18 13:40 Rectum - Final NO CARBAPENEM-RESISTANT ENTEROBACTERI... Complete Laboratory Tests Test 11/23/18 07:32 White Blood Count 4.2 K/UL (4.8-10.8) L Red Blood Count 3.89 M/UL (4.70-6.10) L Hemoglobin 10.6 G/DL (14.2-18.0) L Hematocrit 33.3 % (42.0-52.0) L Mean Corpuscular Volume 86 FL (80-99) Mean Corpuscular Hemoglobin 27.3 PG (27.0-31.0) Mean Corpuscular Hemoglobin Concent 31.9 G/DL (32.0-36.0) L Red Cell Distribution Width 16.1 % (11.6-14.8) H Platelet Count 335 K/UL (150-450) Mean Platelet Volume 4.5 FL (6.5-10.1) L Neutrophils (%) (Auto) 57.9 % (45.0-75.0) Lymphocytes (%) (Auto) 32.8 % (20.0-45.0) Monocytes (%) (Auto) 6.8 % (1.0-10.0) Eosinophils (%) (Auto) 1.3 % (0.0-3.0) Basophils (%) (Auto) 1.2 % (0.0-2.0) Sodium Level 133 MMOL/L (136-145) L Potassium Level 4.4 MMOL/L (3.5-5.1) Chloride Level 97 MMOL/L (98-107) L Carbon Dioxide Level 31 MMOL/L (21-32) Anion Gap 5 mmol/L (5-15) Blood Urea Nitrogen 15 mg/dL (7-18) Creatinine 0.7 MG/DL (0.55-1.30) Estimat Glomerular Filtration Rate > 60 mL/min (>60) Glucose Level 109 MG/DL (74-106) H Calcium Level 9.1 MG/DL (8.5-10.1) Current Medications Medications (Trade) Dose Ordered Sig/Nikolay Route PRN Reason Start Time Stop Time Status Last Admin Dose Admin Acetaminophen (Tylenol) 650 mg Q4H PRN ORAL fever (temp>100.5F) 11/12/18 16:45 12/12/18 16:44 11/21/18 06:57 Acetaminophen (Tylenol) 650 mg Q4H PRN ORAL Mild Pain (Pain Scale 1-3) 11/12/18 16:45 12/12/18 16:44 11/23/18 04:14 Al Hydroxide/Mg Hydroxide (Mylanta) 30 ml FOUR TIMES A DAY ORAL 11/20/18 18:00 12/20/18 17:59 11/23/18 13:41 Dextrose (Dextrose 50%) 25 ml Q30M PRN IV Hypoglycemia 11/12/18 16:45 12/12/18 16:44 Dextrose (Dextrose 50%) 50 ml Q30M PRN IV Hypoglycemia 11/12/18 16:45 12/12/18 16:44 Diphenhydramine HCl (Benadryl) 25 mg Q6H PRN ORAL Itching 11/12/18 16:45 12/12/18 16:44 Docusate Sodium (Colace) 100 mg TWICE A DAY ORAL 11/12/18 18:00 12/12/18 17:59 11/22/18 17:32 Famotidine (Pepcid) 20 mg BID ORAL 11/12/18 18:00 12/12/18 17:59 11/23/18 08:40 Gabapentin (Neurontin) 300 mg BID ORAL 11/12/18 18:00 12/12/18 17:59 11/23/18 08:40 Heparin Sodium (Porcine) (Heparin 5000 units/ml) 5,000 units EVERY 12 HOURS SUBQ 11/12/18 21:00 12/12/18 20:59 11/19/18 22:12 Levetiracetam (Keppra) 1,000 mg BID ORAL 11/12/18 18:00 12/12/18 17:59 11/23/18 08:40 Losartan Potassium (Cozaar) 50 mg DAILY ORAL 11/13/18 09:00 12/13/18 08:59 11/23/18 08:40 Meropenem 1 gm/ Sodium Chloride 55 ml @ 110 mls/hr Q8HR IVPB 11/21/18 14:00 11/26/18 13:59 11/23/18 13:42 Nitroglycerin (Ntg) 0.4 mg Q5M X 3 DOSES PRN SL Prn Chest Pain 11/12/18 16:45 12/12/18 16:44 Ondansetron HCl (Zofran) 4 mg Q6H PRN IVP Nausea & Vomiting 11/12/18 16:45 12/12/18 16:44 Polyethylene Glycol (Miralax) 17 gm HSPRN PRN ORAL Constipation 11/12/18 16:45 12/12/18 16:44 Risperidone (RisperDAL) 2 mg QHS ORAL 11/17/18 21:00 12/13/18 08:59 11/22/18 21:16 Sennosides (Senokot) 17.2 mg BID ORAL 11/12/18 18:00 12/12/18 17:59 11/22/18 17:32 Sodium Chloride (NaCl) 2 gm BID ORAL 11/13/18 09:00 12/13/18 08:59 11/23/18 08:40 Tamsulosin HCl (Flomax) 0.4 mg BEDTIME ORAL 11/12/18 21:00 12/12/18 20:59 11/22/18 21:16 Vancomycin HCl (Vanco rx to dose) 1 ea DAILY PRN MISC Per rx protocol 11/14/18 11:30 12/14/18 11:29 Vancomycin HCl 1 gm/Dextrose 275 ml @ 183.708 mls/hr Q12HR@0600,1800 IVPB 11/20/18 18:00 11/25/18 17:59 11/23/18 06:13 Kassidy Chino MD Nov 23, 2018 15:40
[2018-11-23 15:57] VITALS: BP 130/70
[2018-11-23] MEDS: Vancomycin 1 GM in D5W 275 ML IVPB SCH (17:15)
[2018-11-23] MEDS ORDERED: Acetaminophen 650mg/20.3ml GT PRN ×2 (18:00)
--- NOTE | 2018-11-23 19:09 | General Progress Note ---
Assessment/Plan Problem List: (1) Epilepsy ICD Codes: G40.909 - Epilepsy, unspecified, not intractable, without status epilepticus SNOMED: 91090630 (2) COPD (chronic obstructive pulmonary disease) ICD Codes: J44.9 - Chronic obstructive pulmonary disease, unspecified SNOMED: 01992252 (3) BPH (benign prostatic hyperplasia) ICD Codes: N40.0 - Benign prostatic hyperplasia without lower urinary tract symptoms SNOMED: 503405010 (4) Pyelonephritis ICD Codes: N12 - Tubulo-interstitial nephritis, not specified as acute or chronic SNOMED: 88635411 (5) Hyponatremia ICD Codes: E87.1 - Hypo-osmolality and hyponatremia SNOMED: 78569959 (6) Sepsis ICD Codes: A41.9 - Sepsis, unspecified organism SNOMED: 69200785 Assessment/Plan uti esbl, coag neg staph bacteremia, poor nutrition, continue iv antibiotics, encourage diet, cardiol to assess for KWAKU Subjective Constitutional: Reports: weakness HEENT: Reports: no symptoms Cardiovascular: Reports: no symptoms Gastrointestinal/Abdominal: Reports: no symptoms Genitourinary: Reports: incontinence Neurologic/Psychiatric: Reports: pre-existing deficit Endocrine: Reports: no symptoms Hematologic/Lymphatic: Reports: anemia Allergies: Coded Allergies: No Known Allergies (Unverified , 07/20/15) Objective Last 24 Hour Vital Signs Date Time Temp Pulse Resp B/P (MAP) Pulse Ox O2 Delivery O2 Flow Rate FiO2 11/23/18 15:57 98.5 63 19 130/70 (90) 97 11/23/18 12:00 97.9 65 16 137/78 (97) 96 11/23/18 09:00 Room Air 11/23/18 08:40 137/77 11/23/18 08:00 98.0 59 20 137/77 (97) 95 11/23/18 04:00 97.8 78 18 126/78 (94) 11/23/18 00:00 97.5 70 20 124/78 (93) 11/22/18 21:00 Room Air 11/22/18 20:00 98.5 86 18 127/86 (100) Intake and Output 11/22/18 11/23/18 19:00 07:00 Intake Total 1118.708 ml 183.708 ml Balance 1118.708 ml 183.708 ml Intake Oral 880 ml IV Total 238.708 ml 183.708 ml # Voids 8 3 Laboratory Tests 11/23/18 07:32: White Blood Count 4.2L, Red Blood Count 3.89L, Hemoglobin 10.6L, Hematocrit 33.3L, Mean Corpuscular Volume 86, Mean Corpuscular Hemoglobin 27.3, Mean Corpuscular Hemoglobin Concent 31.9L, Red Cell Distribution Width 16.1H, Platelet Count 335, Mean Platelet Volume 4.5L, Neutrophils (%) (Auto) 57.9, Lymphocytes (%) (Auto) 32.8, Monocytes (%) (Auto) 6.8, Eosinophils (%) (Auto) 1.3, Basophils (%) (Auto) 1.2, Sodium Level 133L, Potassium Level 4.4, Chloride Level 97L, Carbon Dioxide Level 31, Anion Gap 5, Blood Urea Nitrogen 15, Creatinine 0.7, Estimat Glomerular Filtration Rate > 60, Glucose Level 109H, Calcium Level 9.1 Height (Feet): 5 Height (Inches): 8.00 Weight (Pounds): 160 General Appearance: no apparent distress, alert EENT: normal ENT inspection Neck: normal alignment Cardiovascular: normal rate, regular rhythm Respiratory/Chest: lungs clear Abdomen: non tender, soft Edema: no edema noted Arm (L), no edema noted Arm (R), no edema noted Leg (L), no edema noted Leg (R), no edema noted Pedal (L), no edema noted Pedal (R), no edema noted Generalized Neurologic: room maid II-XII grossly normal Liam Carpenter MD Nov 23, 2018 19:09
--- NOTE | 2018-11-23 19:23 | NUR ---
HAND-OFF: Report given to BEVERLY Trevizo.
--- NOTE | 2018-11-23 19:44 | NUR ---
NURSE NOTES: Recieved patient in bed, awake, alert, oriented x2/3, able to make his needs known, no acute distress noted, VSS, afebrile. Call light is within reach, bed is in low position, locked and alarm is on. Will continue to monitor for safety and comfort.
[2018-11-23 20:00] VITALS: BP 126/79
[2018-11-23] MEDS: Tamsulosin 0.4mg cap ORAL SCH (20:20)
[2018-11-24] VITALS: BP 124/98
--- NOTE | 2018-11-24 01:15 | Progress Note ---
DATE: 11/23/2018 CARDIOLOGY PROGRESS NOTE SUBJECTIVE: The patient remains afebrile on intravenous antimicrobials. OBJECTIVE: VITAL SIGNS: Blood pressure 130/70, pulse 63, and respirations 19. LUNGS: Clear. CARDIAC: Regular. Normal S1, S2. A 1/6 systolic murmur at base. ABDOMEN: Soft. EXTREMITIES: No edema. IMPRESSION: 1. Coag-negative Staph bacteremia. 2. Consider consent for endocarditis present. RECOMMENDATIONS: 1. Continuing intravenous antimicrobials. 2. Scheduling KWAKU over the next 24 to 48 hours based on OR schedule. 3. Final recommendations on therapy per Infectious Disease rehab consultant. Damian Harper M.D. DR: CECY JOB#: [id number] CC:
[2018-11-24 04:00] VITALS: BP 119/87
[2018-11-24] MEDS: Meropenem 1 GM in NS 55 ML IVPB SCH ×3 (05:38→21:01)
[2018-11-24] MEDS: Vancomycin 1 GM in D5W 275 ML IVPB SCH ×2 (06:21→17:38)
--- NOTE | 2018-11-24 07:39 | NUR ---
NURSE NOTES: received report from BEVERLY Trevizo. patient in bed. alert, verbally responsive. no respiratory distress noted. no c/o pain at this time. condom cath in place.draining well. IV on RH running. bed in the lowest position. call light within reach. will continue to monitor.
--- NOTE | 2018-11-24 07:42 | NUR ---
HAND-OFF: Report given to Angelito PAUL.
[2018-11-24 08:00] VITALS: BP 150/87
[2018-11-24] MEDS: Heparin 5000 units/ml inj SUBQ SCH ×2 (09:00→21:00)
[2018-11-24] MEDS: Docusate 100mg cap ORAL SCH ×2 (09:08→17:38)
[2018-11-24] MEDS: Sennosides 8.6mg tab ORAL SCH ×2 (09:09→17:39)
[2018-11-24] MEDS: Losartan 50mg tab ORAL SCH (09:09)
[2018-11-24] MEDS: Sodium Chloride 1gm Tab ORAL SCH ×2 (09:09→17:39)
[2018-11-24] MEDS: levETIRAcetam 500mg/5ml Liquid ORAL SCH ×2 (09:10→17:38)
--- NOTE | 2018-11-24 10:22 | NUR ---
DIRECTOR OF CLINICAL EDUCATIONSTEAM AND GAS TURBINES ASSEMBLER SI:PNA . SEPSIS VS: BP150/82, P 63, T 98.5, RR 18, SpO2 96 WBC 4.2, RBC 3.89, Hgb 10.6, Hct 33.3, Na 133 IS:MEROPENEM 55ml IVPB VANCOMYCIN 275mL NaCl 2gm COZAAR 50mg FLOMAX 0.4mg PEPCID 20mg GABAPENTIN 300mg KEPPRA 1000MG MED/SURG STATUS
[2018-11-24 12:00] VITALS: BP 133/71
[2018-11-24 16:00] VITALS: BP 146/82
--- NOTE | 2018-11-24 18:47 | General Progress Note ---
Assessment/Plan Problem List: (1) Epilepsy ICD Codes: G40.909 - Epilepsy, unspecified, not intractable, without status epilepticus SNOMED: 47081334 (2) COPD (chronic obstructive pulmonary disease) ICD Codes: J44.9 - Chronic obstructive pulmonary disease, unspecified SNOMED: 15991379 (3) BPH (benign prostatic hyperplasia) ICD Codes: N40.0 - Benign prostatic hyperplasia without lower urinary tract symptoms SNOMED: 739883682 (4) Pyelonephritis ICD Codes: N12 - Tubulo-interstitial nephritis, not specified as acute or chronic SNOMED: 38785666 (5) Hyponatremia ICD Codes: E87.1 - Hypo-osmolality and hyponatremia SNOMED: 63556762 (6) Sepsis ICD Codes: A41.9 - Sepsis, unspecified organism SNOMED: 90846572 Assessment/Plan uti esbl, coag neg staph bacteremia, poor nutrition, continue iv antibiotics, encourage diet, cardiol to assess for KWAKU Subjective Constitutional: Reports: weakness HEENT: Reports: no symptoms Cardiovascular: Reports: no symptoms Respiratory: Reports: no symptoms Gastrointestinal/Abdominal: Reports: no symptoms Genitourinary: Reports: incontinence Neurologic/Psychiatric: Reports: pre-existing deficit Endocrine: Reports: no symptoms Hematologic/Lymphatic: Reports: anemia Allergies: Coded Allergies: No Known Allergies (Unverified , 07/20/15) Objective Last 24 Hour Vital Signs Date Time Temp Pulse Resp B/P (MAP) Pulse Ox O2 Delivery O2 Flow Rate FiO2 11/24/18 16:00 98.3 63 19 146/82 (103) 97 11/24/18 12:00 97.7 63 16 133/71 (91) 96 11/24/18 09:09 150/87 11/24/18 09:00 Room Air 11/24/18 08:00 98.1 63 18 150/87 (108) 96 11/24/18 04:00 98.5 20 119/87 (98) 11/24/18 00:00 98.5 69 20 124/98 (107) 11/23/18 21:00 Room Air 11/23/18 20:00 97.9 87 20 126/79 (95) 87 Intake and Output 11/23/18 11/24/18 19:00 07:00 Intake Total 1330 ml Output Total 400 ml Balance 1330 ml -400 ml Intake Oral 1000 ml IV Total 330 ml Output Urine Total 400 ml # Voids 8 Height (Feet): 5 Height (Inches): 8.00 Weight (Pounds): 160 General Appearance: no apparent distress, alert EENT: normal ENT inspection Neck: normal alignment Cardiovascular: normal rate, regular rhythm Respiratory/Chest: lungs clear Abdomen: non tender Extremities: no calf tenderness 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
--- NOTE | 2018-11-24 19:00 | NUR ---
NURSE NOTES: Received a report from BEVERLY Eaton. Pt is in stable condition. AAOX3. Able to make needs known. No respiratory distress noted. On room air. No c/o pain/discomfort. IV site is patent and intact. Pt has condom catheter, is draining. Bed in lowest position. Call light within reach. Will continue to monitor.
--- NOTE | 2018-11-24 19:21 | NUR ---
HAND-OFF: Report given to BEVERLY Sullivan.
[2018-11-24 20:00] VITALS: BP 139/79
[2018-11-24] MEDS: Tamsulosin 0.4mg cap ORAL SCH (21:01)
[2018-11-25] VITALS (8 sets, daily range): BP systolic 131–158; BP diastolic 75–86
--- NOTE | 2018-11-25 04:30 | Progress Note ---
DATE: 11/24/2018 CARDIOLOGY PROGRESS NOTE SUBJECTIVE: The patient remains on IV antimicrobials. Case was discussed with his daughter, who agrees with diagnostic transesophageal echocardiogram. The patient remains afebrile. Vitals are stable. The patient has no signs of upper gastrointestinal bleeding or structural abnormalities and no active bronchospasm. He is being treated for coag-negative Staph bacteremia and a transesophageal echocardiogram to be performed tomorrow to assess likelihood of endocarditis as well. Damian Harper M.D. DR: GLENNA JOB#: [id number] CC:
[2018-11-25] MEDS: Meropenem 1 GM in NS 55 ML IVPB SCH ×2 (05:13→18:18)
[2018-11-25] MEDS: Vancomycin 1 GM in D5W 275 ML IVPB SCH ×2 (06:33→18:00)
--- NOTE | 2018-11-25 07:00 | NUR ---
HAND-OFF: Report given to Angelito PAUL.
--- NOTE | 2018-11-25 07:34 | NUR ---
NURSE NOTES: received report from BEVERLY Sullivan. patient in bed. alert, verbally responsive. no respiratory distress noted. no c/o pain at this time. NPO for KWAKU procedure at 1100. IV on LFA intact. condom cath draining. bed in the lowest position. call light within reach. alarm on. will continue to monitor.
--- NOTE | 2018-11-25 08:16 | General Progress Note ---
Assessment/Plan Problem List: (1) Epilepsy ICD Codes: G40.909 - Epilepsy, unspecified, not intractable, without status epilepticus SNOMED: 45524286 (2) COPD (chronic obstructive pulmonary disease) ICD Codes: J44.9 - Chronic obstructive pulmonary disease, unspecified SNOMED: 75270386 (3) BPH (benign prostatic hyperplasia) ICD Codes: N40.0 - Benign prostatic hyperplasia without lower urinary tract symptoms SNOMED: 379841060 (4) Pyelonephritis ICD Codes: N12 - Tubulo-interstitial nephritis, not specified as acute or chronic SNOMED: 15454378 (5) Hyponatremia ICD Codes: E87.1 - Hypo-osmolality and hyponatremia SNOMED: 88503796 (6) Sepsis ICD Codes: A41.9 - Sepsis, unspecified organism SNOMED: 06845033 Assessment/Plan uti esbl, coag neg staph bacteremia, poor nutrition, continue iv antibiotics, encourage diet, cardiol to assess for KWAKU 11/25 Subjective Constitutional: Reports: no symptoms HEENT: Reports: no symptoms Cardiovascular: Reports: no symptoms Respiratory: Reports: no symptoms Gastrointestinal/Abdominal: Reports: no symptoms Genitourinary: Reports: incontinence Neurologic/Psychiatric: Reports: no symptoms Endocrine: Reports: no symptoms Allergies: Coded Allergies: No Known Allergies (Unverified , 07/20/15) Objective Last 24 Hour Vital Signs Date Time Temp Pulse Resp B/P (MAP) Pulse Ox O2 Delivery O2 Flow Rate FiO2 11/25/18 04:00 97.8 52 16 149/76 (100) 94 11/25/18 00:00 98.0 63 14 138/86 (103) 96 11/24/18 21:00 Room Air 11/24/18 20:00 97.8 58 18 139/79 (99) 96 11/24/18 16:00 98.3 63 19 146/82 (103) 97 11/24/18 12:00 97.7 63 16 133/71 (91) 96 11/24/18 09:09 150/87 11/24/18 09:00 Room Air Intake and Output 11/24/18 11/25/18 19:00 07:00 Intake Total 1110 ml 55 ml Output Total 1250 ml Balance 1110 ml -1195 ml Intake Oral 1000 ml IV Total 110 ml 55 ml Output Urine Total 1250 ml # Bowel Movements 1 Height (Feet): 5 Height (Inches): 8.00 Weight (Pounds): 160 General Appearance: no apparent distress, alert EENT: normal ENT inspection Neck: normal alignment, supple Cardiovascular: normal rate Respiratory/Chest: lungs clear Abdomen: soft Liam Carpenter MD Nov 25, 2018 08:16
[2018-11-25] MEDS: Heparin 5000 units/ml inj SUBQ SCH ×3 (09:00→20:58)
[2018-11-25] MEDS: Sodium Chloride 1gm Tab ORAL SCH ×2 (09:00→18:18)
[2018-11-25] MEDS: Sennosides 8.6mg tab ORAL SCH ×2 (09:00→18:18)
[2018-11-25] MEDS: Docusate 100mg cap ORAL SCH ×2 (09:00→18:18)
[2018-11-25] MEDS: Losartan 50mg tab ORAL SCH (09:00)
[2018-11-25] MEDS: levETIRAcetam 500mg/5ml Liquid ORAL SCH ×2 (09:00→18:18)
[2018-11-25 09:03] LABS: BASOPHILS % (AUTO) 1.3 % (0.0-2.0); EOSINOPHILS % (AUTO) 2.8 % (0.0-3.0); HEMATOCRIT 31.9 % (42.0-52.0); HEMOGLOBIN 10.3 G/DL (14.2-18.0); LYMPHOCYTES % (AUTO) 27.8 % (20.0-45.0); MEAN CORPUSCULAR VOLUME 85 FL (80-99); MONOCYTES % (AUTO) 8.1 % (1.0-10.0); NEUTROPHILS % (AUTO) 60.1 % (45.0-75.0); PLATELET COUNT 293 K/UL (150-450); RED BLOOD COUNT 3.74 M/UL (4.70-6.10); RED CELL DISTRIBUTION WIDTH 15.9 % (11.6-14.8); WHITE BLOOD COUNT 5.2 K/UL (4.8-10.8)
[2018-11-25 09:19] LABS: ANION GAP 6 mmol/L (5-15); BLOOD UREA NITROGEN 20 mg/dL (7-18); CALCIUM 9.2 MG/DL (8.5-10.1); CARBON DIOXIDE 32 MMOL/L (21-32); CHLORIDE 99 MMOL/L (98-107); CREATININE 0.6 MG/DL (0.55-1.30); POTASSIUM 4.1 MMOL/L (3.5-5.1); SODIUM 137 MMOL/L (136-145)
--- NOTE | 2018-11-25 09:22 | NUR ---
ELECTRONIC DRAFTER Co-Signature: Reviewed patient's chart. Reviewed and approved ELECTRONIC DRAFTER notes Addendum: 11/25/18 at 0924 by EDWARDO NGUYEN PT,MG Amended: Links added.
--- NOTE | 2018-11-25 09:23 | NUR ---
SEARCH ENGINEER Co-Signature: Reviewed patient's chart. Reviewed and approved SEARCH ENGINEER notes Addendum: 11/25/18 at 0924 by EDWARDO NGUYEN PT,MG Amended: Links added.
--- NOTE | 2018-11-25 09:23 | NUR ---
LANDSCAPE HORTICULTURE INSTRUCTOR Co-Signature: Reviewed patient's chart. Reviewed and approved LANDSCAPE HORTICULTURE INSTRUCTOR notes Addendum: 11/25/18 at 0924 by EDWARDO NGUYEN PT,MG Amended: Links added.
--- NOTE | 2018-11-25 09:23 | NUR ---
LICENSED EMBALMER Co-Signature: Reviewed patient's chart. Reviewed and approved LICENSED EMBALMER notes Addendum: 11/25/18 at 0924 by EDWARDO NGUYEN PT,MG Amended: Links added.
--- NOTE | 2018-11-25 09:24 | NUR ---
BRAKE RELINER Co-Signature: Reviewed patient's chart. Reviewed and approved BRAKE RELINER notes Addendum: 11/25/18 at 0924 by EDWARDO NGUYEN PT,MG Amended: Links added.
--- NOTE | 2018-11-25 10:52 | Anethesia Preoperative Eval ---
Anesthesia Pre-op PMH/ROS General Date of Evaluation: Nov 25, 2018 Time of Evaluation: 10:48 Anesthesiologist: jackson ASA Score: ASA 4 Mallampati Score Class I : Soft palate, uvula, fauces, pillars visible Class II: Soft palate, uvula, fauces visible Class III: Soft palate, base of uvula visible Class IV: Only hard plate visible Mallampati Classification: Class II Surgeon: luis felipe Surgical Procedure: thuan Anesthesia History: none Social History: current smoker Family History: no anesthesia problems Allergies: Coded Allergies: No Known Allergies (Unverified , 07/20/15) Medications: see eMAR Patient NPO?: Yes Past Medical History Cardiovascular: Reports: HTN, arrhythmia Pulmonary: Reports: other - pneumonia Gastrointestinal/Genitourinary: Reports: GERD Neurologic/Psychiatric: Reports: depression/anxiety, other - peripheral neuropathy, parkinson's disease Hematology/Immune: Reports: anemia Musculoskeletal/Integumentary: Reports: OA Anesthesia Pre-op Phys. Exam Physician Exam Last Vital Signs Date Time Temp Pulse Resp B/P (MAP) Pulse Ox O2 Delivery O2 Flow Rate FiO2 11/25/18 04:00 97.8 52 16 149/76 (100) 94 11/24/18 21:00 Room Air 11/17/18 15:35 21 Constitutional: NAD Neurologic: CN 2-12 intact Cardiovascular: RRR Respiratory: CTA Gastrointestinal: S/NT/ND Airway Exam Mallampati Score: Class II MO: limited Neck: flexible TMD: 2fb ROM: limited Anesthesia Pre-op A/P Labs Hematology Test 11/25/18 08:50 White Blood Count 5.2 K/UL (4.8-10.8) Red Blood Count 3.74 M/UL (4.70-6.10) L Hemoglobin 10.3 G/DL (14.2-18.0) L Hematocrit 31.9 % (42.0-52.0) L Mean Corpuscular Volume 85 FL (80-99) Mean Corpuscular Hemoglobin 27.5 PG (27.0-31.0) Mean Corpuscular Hemoglobin Concent 32.2 G/DL (32.0-36.0) Red Cell Distribution Width 15.9 % (11.6-14.8) H Platelet Count 293 K/UL (150-450) Mean Platelet Volume 4.5 FL (6.5-10.1) L Neutrophils (%) (Auto) 60.1 % (45.0-75.0) Lymphocytes (%) (Auto) 27.8 % (20.0-45.0) Monocytes (%) (Auto) 8.1 % (1.0-10.0) Eosinophils (%) (Auto) 2.8 % (0.0-3.0) Basophils (%) (Auto) 1.3 % (0.0-2.0) Chemistry Test 11/25/18 08:50 Sodium Level 137 MMOL/L (136-145) Potassium Level 4.1 MMOL/L (3.5-5.1) Chloride Level 99 MMOL/L (98-107) Carbon Dioxide Level 32 MMOL/L (21-32) Anion Gap 6 mmol/L (5-15) Blood Urea Nitrogen 20 mg/dL (7-18) H Creatinine 0.6 MG/DL (0.55-1.30) Estimat Glomerular Filtration Rate > 60 mL/min (>60) Glucose Level 88 MG/DL (74-106) Calcium Level 9.2 MG/DL (8.5-10.1) Risk Assessment & Plan Assessment: asa4 Plan: mac Status Change Before Surgery: No Pre-Antibiotics Drug: Ayaka Persaud MD Nov 25, 2018 10:52
[2018-11-25] MEDS ORDERED: DiphenhydrAMINE 50mg/ml Inj IVP PRN (11:00)
[2018-11-25] MEDS ORDERED: Midazolam 2mg/2ml Inj IVP PRN (11:00)
[2018-11-25] MEDS ORDERED: Atropine Inj 1mg/10ml Syr IV PRN (11:00)
[2018-11-25] MEDS ORDERED: fentaNYL 100 mcg/2 mL IV PRN (11:00)
[2018-11-25] MEDS ORDERED: NS 500ML IVPB ONE (11:25)
[2018-11-25] MEDS ORDERED: Propofol 200mg/20ml IV ONE (11:30)
[2018-11-25] MEDS ORDERED: Lidocaine 1% MPF 10mg/ml 5ml ONE (11:30)
[2018-11-25] MEDS ORDERED: Atropine Sulfate 0.4mg/ml inj ONE (11:30)
--- NOTE | 2018-11-25 13:50 | Infectious Diseases Prog Note ---
Assessment/Plan Assessment/Plan ASSESSMENT AND PLAN: 1. 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 endocarditis, sepsis, leukocytosis, fevers, pna, chest x-ray with atx/?chf now - meropenem and vancomycin - day # 11 abx, finish course - can discharge patient with no further antibiotics needed - clinically improved, fevers and leukocytosis resolved - TTE without vegetations, KWAKU without vegetations - surveillance blood cultures negative - monitor labs - communicated with Dr. Harper about KWAKU negative for vegetations 2. continue treatment per primary and consultants 3. The patient has anemia. 4. Leukocytosis. 5. SIRS criteria and sepsis. 6. Hyponatremia. 7. History of schizophrenia. 8. COPD. 9. Acid thrush. 10. Hypertension. 11. Seizures. 12. Decreased gait. 13. No history of diabetes or cancer. 14. Malnutrition. 15. Hypertension per primary and consultants. 16. History of VFib in the past. 17. History of chronic kidney disease. 18. Insomnia. 19. No known allergies. 20. Family history is noncontributory. 21. Social history is negative. 22. MAR is noted. 23. Case discussed with RN. 24. Continue treatment per primary consultants. 25. Skin care per protocol. Subjective Constitutional: Denies: fever HEENT: Denies: congestion Respiratory: Denies: shortness of breath Cardiovascular: Denies: chest pain Gastrointestinal/Abdominal: Denies: nausea, vomiting, diarrhea Genitourinary: Reports: other - no lópez Neurologic: Denies: headache Psychiatric: Denies: depression Skin: Denies: rash Hematologic: Denies: bleeding Musculoskeletal: Denies: pain Allergies: Coded Allergies: No Known Allergies (Unverified , 07/20/15) Objective Vital Signs Last 24 Hour Vital Signs Date Time Temp Pulse Resp B/P (MAP) Pulse Ox O2 Delivery O2 Flow Rate FiO2 11/25/18 12:33 98.0 59 19 137/79 100 Nasal Cannula 3 11/25/18 12:20 56 16 137/77 100 Nasal Cannula 3 11/25/18 12:15 60 17 131/75 100 Nasal Cannula 3 11/25/18 12:10 97.9 63 18 134/78 100 Nasal Cannula 3 11/25/18 09:00 Room Air 11/25/18 08:00 97.9 58 18 149/77 (101) 96 11/25/18 04:00 97.8 52 16 149/76 (100) 94 11/25/18 00:00 98.0 63 14 138/86 (103) 96 11/24/18 21:00 Room Air 11/24/18 20:00 97.8 58 18 139/79 (99) 96 11/24/18 16:00 98.3 63 19 146/82 (103) 97 Height (Feet): 5 Height (Inches): 8.00 Weight (Pounds): 160 General Appearance: no acute distress HEENT: normocephalic, atraumatic, anicteric, mucous membranes moist Respiratory/Chest: lungs clear, normal breath sounds, no respiratory distress, no accessory muscle use Cardiovascular: normal rate, regular rhythm, no gallop/murmur, no JVD Abdomen: normal bowel sounds, soft, non tender, no organomegaly, non distended Genitourinary: other - no lópez Extremities: no cyanosis Skin: no rash Neurologic/Psychiatric: aviation tactical readiness officer II-XII grossly normal, alert, responsive Lymphatic: no neck adenopathy Musculoskeletal: no effusion Objective 11/16/18 - chest x-ray - Comparison: 11/12/2018 Findings: Patient is rotated to the right. Band of atelectasis or scarring is again demonstrated in the right perihilar region. There is questionably mild interstitial congestion, not definitely evident previously although findings could be attributable to slight differences in exposure technique. There is slight alteration the right hemidiaphragm, could indicate a small pleural effusion developing. Heart size is normal. Impression: Stable band of atelectasis or scarring right perihilar region Equivocal interstitial congestive changes. Correlate with clinical findings Possible developing small right pleural effusion Microbiology Date/Time Source Procedure Growth Status 11/16/18 04:45 Blood Blood Culture - Final NO GROWTH AFTER 5 DAYS Complete 11/12/18 13:49 Nasal Nares Influenza Types A,B Antigen (ISRRA[place]) - Final Complete 11/12/18 17:55 Urine,Clean Catch Urine Culture - Final Escherichia Coli - Esbl Complete 11/12/18 13:40 Rectum VRE Culture - Final NO VANCOMYCIN RESISTANT ENTEROCOCCUS ... Complete 11/12/18 13:40 Rectum - Final NO CARBAPENEM-RESISTANT ENTEROBACTERI... Complete Laboratory Tests Test 11/25/18 08:50 White Blood Count 5.2 K/UL (4.8-10.8) Red Blood Count 3.74 M/UL (4.70-6.10) L Hemoglobin 10.3 G/DL (14.2-18.0) L Hematocrit 31.9 % (42.0-52.0) L Mean Corpuscular Volume 85 FL (80-99) Mean Corpuscular Hemoglobin 27.5 PG (27.0-31.0) Mean Corpuscular Hemoglobin Concent 32.2 G/DL (32.0-36.0) Red Cell Distribution Width 15.9 % (11.6-14.8) H Platelet Count 293 K/UL (150-450) Mean Platelet Volume 4.5 FL (6.5-10.1) L Neutrophils (%) (Auto) 60.1 % (45.0-75.0) Lymphocytes (%) (Auto) 27.8 % (20.0-45.0) Monocytes (%) (Auto) 8.1 % (1.0-10.0) Eosinophils (%) (Auto) 2.8 % (0.0-3.0) Basophils (%) (Auto) 1.3 % (0.0-2.0) Sodium Level 137 MMOL/L (136-145) Potassium Level 4.1 MMOL/L (3.5-5.1) Chloride Level 99 MMOL/L (98-107) Carbon Dioxide Level 32 MMOL/L (21-32) Anion Gap 6 mmol/L (5-15) Blood Urea Nitrogen 20 mg/dL (7-18) H Creatinine 0.6 MG/DL (0.55-1.30) Estimat Glomerular Filtration Rate > 60 mL/min (>60) Glucose Level 88 MG/DL (74-106) Calcium Level 9.2 MG/DL (8.5-10.1) Current Medications Medications (Trade) Dose Ordered Sig/Nikolay Route PRN Reason Start Time Stop Time Status Last Admin Dose Admin Acetaminophen (Tylenol) 650 mg Q4H PRN ORAL Mild Pain (Pain Scale 1-3) 11/24/18 02:00 12/24/18 01:59 11/25/18 02:13 Acetaminophen (Tylenol) 650 mg Q4H PRN ORAL fever (temp>100.5F) 11/24/18 02:00 12/24/18 01:59 Al Hydroxide/Mg Hydroxide (Mylanta) 15 ml Q1H PRN ORAL gi upset 11/25/18 11:00 11/25/18 17:00 Al Hydroxide/Mg Hydroxide (Mylanta) 30 ml FOUR TIMES A DAY ORAL 11/20/18 18:00 12/20/18 17:59 11/24/18 21:00 Atropine Sulfate (Atropine) 0.5 mg Q5M PRN IV HR less than 45 BPM 11/25/18 11:00 11/25/18 17:00 Dextrose (Dextrose 50%) 25 ml Q30M PRN IV Hypoglycemia 11/12/18 16:45 12/12/18 16:44 Dextrose (Dextrose 50%) 50 ml Q30M PRN IV Hypoglycemia 11/12/18 16:45 12/12/18 16:44 Diphenhydramine HCl (Benadryl) 25 mg Q15M PRN IVP Itching 11/25/18 11:00 11/25/18 17:00 Diphenhydramine HCl (Benadryl) 25 mg Q6H PRN ORAL Itching 11/12/18 16:45 12/12/18 16:44 Docusate Sodium (Colace) 100 mg TWICE A DAY ORAL 11/12/18 18:00 12/12/18 17:59 11/24/18 17:38 Famotidine (Pepcid) 20 mg BID ORAL 11/12/18 18:00 12/12/18 17:59 11/24/18 17:39 Fentanyl Citrate (Sublimaze 100 mcg/2 mL) 25 mcg Q10M PRN IV Moderate Pain (Pain Scale 4-6) 11/25/18 11:00 11/25/18 17:00 Gabapentin (Neurontin) 300 mg BID ORAL 11/12/18 18:00 12/12/18 17:59 11/24/18 17:39 Heparin Sodium (Porcine) (Heparin 5000 units/ml) 5,000 units EVERY 12 HOURS SUBQ 11/12/18 21:00 12/12/18 20:59 11/19/18 22:12 Hydralazine HCl (Apresoline) 5 mg Q30M PRN IV SBP>160/DBP>90 11/25/18 11:00 11/25/18 17:00 Levetiracetam (Keppra) 1,000 mg BID ORAL 11/12/18 18:00 12/12/18 17:59 11/24/18 17:38 Losartan Potassium (Cozaar) 50 mg DAILY ORAL 11/13/18 09:00 12/13/18 08:59 11/24/18 09:09 Meropenem 1 gm/ Sodium Chloride 55 ml @ 110 mls/hr Q8HR IVPB 11/21/18 14:00 11/26/18 13:59 11/25/18 05:13 Midazolam HCl (Versed 2mg/2ml vial) 1 mg Q15M PRN IVP For Anxiety 11/25/18 11:00 11/25/18 17:00 Nitroglycerin (Ntg) 0.4 mg Q5M X 3 DOSES PRN SL Prn Chest Pain 11/12/18 16:45 12/12/18 16:44 Ondansetron HCl (Zofran) 4 mg Q1H PRN IVP Nausea & Vomiting 11/25/18 11:00 11/25/18 17:00 Ondansetron HCl (Zofran) 4 mg Q6H PRN IVP Nausea & Vomiting 11/12/18 16:45 12/12/18 16:44 Polyethylene Glycol (Miralax) 17 gm HSPRN PRN ORAL Constipation 11/12/18 16:45 12/12/18 16:44 Risperidone (RisperDAL) 2 mg QHS ORAL 11/17/18 21:00 12/13/18 08:59 11/24/18 21:00 Sennosides (Senokot) 17.2 mg BID ORAL 11/12/18 18:00 12/12/18 17:59 11/24/18 17:39 Sodium Chloride 1,000 ml @ 100 mls/hr Q10H IV 11/25/18 02:00 12/25/18 01:59 11/25/18 12:00 Sodium Chloride (NaCl) 2 gm BID ORAL 11/13/18 09:00 12/13/18 08:59 11/24/18 17:39 Tamsulosin HCl (Flomax) 0.4 mg BEDTIME ORAL 11/12/18 21:00 12/12/18 20:59 11/24/18 21:01 Vancomycin HCl (Vanco rx to dose) 1 ea DAILY PRN MISC Per rx protocol 11/14/18 11:30 12/14/18 11:29 Vancomycin HCl 1 gm/Dextrose 275 ml @ 183.708 mls/hr Q12HR@0600,1800 IVPB 11/23/18 18:00 11/28/18 17:59 11/25/18 06:33 Kassidy Chino MD Nov 25, 2018 13:50
--- NOTE | 2018-11-25 14:59 | NUR ---
NURSE NOTES: report given to [facility]. patient will be discharged today. spoke with Tiago.
--- NOTE | 2018-11-25 19:09 | NUR ---
HAND-OFF: Report given to BEVERLY Aguilar.
--- NOTE | 2018-11-25 19:29 | Immediate Post-Op Evaluation ---
Immediate Post-Op Evalulation Immediate Post-Op Evalulation Procedure: thuan Date of Evaluation: Nov 25, 2018 Time of Evaluation: 12:22 IV Fluids: 0.9ns 300ml Blood Products: none Estimated Blood Loss: negligible Blood Pressure Systolic: 134 Blood Pressure Diastolic: 78 Pulse Rate: 63 Respiratory Rate: 18 O2 Sat by Pulse Oximetry: 100 Temperature (Fahrenheit): 97.9 Pain Score (1-10): 0 Nausea: No Vomiting: No Complications none Patient Status: awake, reacts, patent Hydration Status: adequate Drug: Ayaka Persaud MD Nov 25, 2018 19:29
--- NOTE | 2018-11-25 19:30 | 48 Hour Post Anesthesia Eval ---
Post Anesthesia Evaluation Procedure: thuan Date of Evaluation: Nov 25, 2018 Time of Evaluation: 12:24 Blood Pressure Systolic: 137 0: 77 Pulse Rate: 56 Respiratory Rate: 18 Temperature (Fahrenheit): 97.9 O2 Sat by Pulse Oximetry: 100 Airway: patent Nausea: No Vomiting: No Pain Intensity: 0 Hydration Status: adequate Cardiopulmonary Status: stable Mental Status/LOC: patient returned to baseline Post-Anesthesia Complications: none Follow-up care needed: N/A Ayaka Mendez MD Nov 25, 2018 19:30
--- NOTE | 2018-11-25 20:00 | NUR ---
NURSE NOTES: received patient awake,verbal,follows command,resting in bed comfortably without complaints.
[2018-11-25] MEDS: Tamsulosin 0.4mg cap ORAL SCH (20:49)
--- NOTE | 2018-11-25 22:00 | NUR ---
NURSE NOTES: Patient transferred to [facility] with essentially normal vital signs by ambulance.
--- NOTE | 2018-11-26 14:32 | Discharge Summary ---
Discharge Summary Discharge Summary _ DATE OF ADMISSION: 11/12/2018 DATE OF DISCHARGE: 11/25/2018 DISCHARGED BY: Dr. Liam Carpenter CONSULTANTS: Dr. Kassidy Hannon BRIEF HOSPITAL COURSE: Patient is a 68-year-old male with history of schizophrenia, COPD, osteoarthritis, seizure disorder, hyponatremia and inability to walk. Patient resides in an assisted living facility. He presented to ED complaining of cough , fever and shortness of breath. On evaluation at ED, temperature was 100.8. Blood work showed leukocytosis. WBC 16, hemoglobin 11, hematocrit 32. Sodium was low at 129, chloride 94. BUN 12, creatinine 0.7. LFTs were normal. Troponin was negative. Urinalysis showed 3+ protein, 5+ blood, positive nitrite, 3+ leukocyte esterase, too many to count WBC. Chest x-ray showed right perihilar atelectasis. Influenza a and B were negative. He was then admitted to medical floor for evaluation of cough and fever, community-acquired pneumonia versus acute bronchitis. He was started on empiric antibiotics. Guest Services Manager was consulted. Patient was given nebulizer treatment. He was initially given steroids, steroids were tapered. Blood culture showed growth of staph epidermidis. Urine culture with ESBL E. coli. ID was consulted. He was given vancomycin and meropenem. Video swallow evaluation was done. There was no overt aspiration but has high risk for chronic trace aspiration. He was recommended strict aspiration precaution. Surveillance chest x-ray showed stable atelectasis. Cna Pct was consulted for evaluation of endocarditis due to coagulase- negative staph bacteremia. Patient underwent KWAKU on 11/25/2018. KWAKU results were negative (per ID notes). Patient was eventually cleared for discharge. Surveillance blood cultures were negative. There were no fever. No leukocytosis. Patient was discharged back to board and care. FINAL DIAGNOSES: Sepsis with ESBL E. coli UTI and coagulase-negative staph bacteremia Pneumonia Hyponatremia Pyelonephritis BPH COPD Epilepsy Hypertension Possible endocarditis, status post negative transesophageal echocardiogram on DISPOSITION: DC to board and care. DISCHARGE MEDICATIONS: Refer to Discharge Medication List. DISCHARGE INSTRUCTIONS: Follow-up in a week. I have been assigned to complete a discharge summary on this account, I was not involved with the patient's management. Yareli Manley NP Nov 26, 2018 14:32
--- NOTE | 2018-11-27 01:15 | Discharge Summary ---
DATE OF ADMISSION: 11/12/2018 DATE OF DISCHARGE: 11/25/2018 PERTINENT HISTORY: The patient is a 68-year-old man with schizophrenia, chronic obstructive pulmonary disease, seizure disorder, arthritis, and chronic hyponatremia. He lives in assisted living. He presents with fever, cough, and weakness. An x-ray was interpreted by the emergency room doctor showing pneumonia. PERTINENT PHYSICAL FINDINGS: GENERAL: The patient is alert. He has poor teeth. LUNGS: Showed distant breath sounds. Few crackles. HEART: Regular rhythm. No murmur. ABDOMEN: Soft without organomegaly. EXTREMITIES: No edema. There is muscle wasting and contractures. NEUROLOGIC: He is alert and responsive. He moves all extremities. Has generalized weakness. COURSE IN THE HOSPITAL: The patient was started on empiric antibiotics. Urinary tract infection was diagnosed with E. coli ESBL. Blood culture shows Staphylococcus epidermidis. The imaging chest x-ray on admission was read as right perihilar atelectasis. The patient had appropriate antibiotics arranged by Dr. Chino and Infectious Disease. In view of the coag-negative Staphylococcus aureus, there was concern of SBE and Dr. Harper arranged a transesophageal echocardiogram, which was negative for vegetations. The patient to continue with this stable course. On the day of discharge, his lungs were clear. Heart, regular rhythm. Abdomen, soft. He had no dysuria, but he did have incontinence and he was discharged back to his assisted living facility in improved condition. FINAL DIAGNOSES: 1. Pyelonephritis with E. coli ESBL. 2. Abnormal blood cultures with Staphylococcal epidermidis, possible contamination versus bacteremia. 3. Neurogenic bladder. 4. Chronic obstructive pulmonary disease. 5. Atelectasis. 6. Hypertension. 7. Epilepsy. 8. Hyponatremia, SIADH. 9. History of schizophrenia. 10. Mild protein-calorie malnutrition. 11. Anemia of chronic disease. DISCHARGE DISPOSITION: Back to his assisted living on a regular diet and medications per the discharge medication list. Follow up by Dr. Carpenter in the facility. Liam Carpenter M.D. DR: BATSHEVA JOB#: [id number] CC:
== END 2018-11-25 21:55 | disposition home or self-care (01) | DRG 871 ==
LOC: EDBD 13:09 → EMR 13:52 → EDBEDREQ 16:09 → EDBEDREQSVC 16:09 → 3E 16:20 → EDBEDREQ 16:28 → 4E 19:28
DX: A41.51 Sepsis due to Escherichia coli [E. coli] (principal); J18.9 Pneumonia, unspecified organism; N39.0 Urinary tract infection, site not specified; E87.1 Hypo-osmolality and hyponatremia; E44.0 Moderate protein-calorie malnutrition; I38 Endocarditis, valve unspecified; N12 Tubulo-interstitial nephritis, not specified as acute or chronic; J44.0 Chronic obstructive pulmonary disease with (acute) lower respiratory infection; J44.1 Chronic obstructive pulmonary disease with (acute) exacerbation; E22.2 Syndrome of inappropriate secretion of antidiuretic hormone; E44.1 Mild protein-calorie malnutrition; Z68.24 Body mass index [BMI] 24.0-24.9, adult; F20.9 Schizophrenia, unspecified; G40.909 Epilepsy, unspecified, not intractable, without status epilepticus; I12.9 Hypertensive chronic kidney disease with stage 1 through stage 4 chronic kidney disease, or unspecified chronic kidney disease; N18.9 Chronic kidney disease, unspecified; D64.9 Anemia, unspecified; G20 Parkinson's disease; R09.02 Hypoxemia; R26.9 Unspecified abnormalities of gait and mobility; G47.00 Insomnia, unspecified; N40.0 Benign prostatic hyperplasia without lower urinary tract symptoms
CPT/HCPCS: 36415; 71045; 74230; 80048; 80053; 80202; 81003; 82533; 82550; 82553; 82607; 82728; 83540; 83550; 83605; 83930; 83935; 84443; 84484; 85007; 85025; 86710; 87040; 87081; 87086; 87181; 93005; 93306; 93312; 94003; 94150; 94640; 96361; 96365; 96366; 99285; J7620; J8499

== ENCOUNTER 2019-04-12 13:07 | Inpatient (IN) | payer MEDICARE, OTHER ==
[~2019-04-12] VITALS: Ht 162.6 cm; Wt 62.7 kg
[~2019-04-12 13:07] MED LIST changes: +LEVETIRACETAM500 MG ORAL; +RISPERIDONE ODT2 MG PO; +RISPERIDONE PO; +SODIUM CHLORIDE1 GM PO
[2019-04-12 13:32] VITALS: BP 136/78
--- NOTE | 2019-04-12 13:33 | NUR ---
ED Nurse Note: pt was brought in by ambulance from [facility] c/o skin rash on the left and right buttocks, pt in non ambulatory secondary to arthiritis, skin check done and noticed skin redness and pressure ulcer on left and right buttocks. pt complains of 6/10 pain. will continue to monitor.
--- NOTE | 2019-04-12 14:05 | NUR ---
ED Nurse Note: with new order from fanta, iv stablished on the right arm using g 22 iv catheter with good blood return, blood drawn and was sent to lab. ivf started. pt unable to give urine sample as of the moment. fanta made aware.
[2019-04-12 14:42] LABS: BASOPHILS % (AUTO) 2.4 % (0.0-2.0); EOSINOPHILS % (AUTO) 0.3 % (0.0-3.0); HEMATOCRIT 38.1 % (42.0-52.0); HEMOGLOBIN 12.6 G/DL (14.2-18.0); LYMPHOCYTES % (AUTO) 9.6 % (20.0-45.0); MEAN CORPUSCULAR VOLUME 88 FL (80-99); MONOCYTES % (AUTO) 4.9 % (1.0-10.0); NEUTROPHILS % (AUTO) 82.8 % (45.0-75.0); PLATELET COUNT 272 K/UL (150-450); RED BLOOD COUNT 4.33 M/UL (4.70-6.10); RED CELL DISTRIBUTION WIDTH 15.4 % (11.6-14.8); WHITE BLOOD COUNT 14.3 K/UL (4.8-10.8)
[2019-04-12 14:47] VITALS: BP 138/75
[2019-04-12 14:50] LABS: INR 1.1 (0.9-1.1)
[2019-04-12 14:56] LABS: ANION GAP 13 mmol/L (5-15); BLOOD UREA NITROGEN 17 mg/dL (7-18); CALCIUM 9.1 MG/DL (8.5-10.1); CARBON DIOXIDE 24 MMOL/L (21-32); CHLORIDE 103 MMOL/L (98-107); CREATININE 0.8 MG/DL (0.55-1.30); POTASSIUM 3.5 MMOL/L (3.5-5.1); SODIUM 140 MMOL/L (136-145)
--- NOTE | 2019-04-12 15:05 | Diagnostic Imaging Report ---
Indication: Dyspnea Comparison: 11/16/2018 A single view chest radiograph was obtained. Findings: There is a density in the right perihilar region likely scarring seen previously as well. Heart size is stable. Right hemidiaphragm is elevated. Bones are osteopenic. IMPRESSION: Scarring in the right perihilar region of the lung. Volume loss noted on the right. No interval change
[2019-04-12 15:08] LABS: ALANINE AMINOTRANSFERASE 21 U/L (12-78); ALBUMIN/GLOBULIN RATIO 0.6 (1.0-2.7); ALKALINE PHOSPHATASE 152 U/L (46-116); ASPARTATE AMINO TRANSFERASE 21 U/L (15-37); BILIRUBIN,TOTAL 0.7 MG/DL (0.2-1.0)
[2019-04-12] MEDS ORDERED: Piperacillin/Tazobactam 3.375 GM in NS 110 ML IVPB ONE (15:15)
--- NOTE | 2019-04-12 15:49 | NUR ---
ED Nurse Note: Report given to Alex RN
--- NOTE | 2019-04-12 15:49 | NUR ---
TRANSFER TO FLOOR: Patient transferred to as ordered, per Dr. Levin. Report given to BEVERLY Jonhson.
--- NOTE | 2019-04-12 16:27 | Emergency Room Report ---
History of Present Illness General Chief Complaint: Skin Rash/Abscess Source: Patient, Medical Record, EMS Present Illness HPI 69-year-old male presents ED for evaluation of rash. Per EMS patient has a abscess to his right buttock. Patient has schizophrenia does not recall how long he has had this. Denies pain. Denies fevers or chills. No other aggravating or relieving factors. Denies any other associated symptoms Allergies: Coded Allergies: No Known Allergies (Unverified , 07/20/15) Patient History Past Medical History: HTN, dementia, other - ventricular fibrilaqtion Pertinent Family History: none Social History: Denies: smoking, alcohol use, drug use Immunizations: UTD Reviewed Nursing Documentation: PMH: Agreed; PSxH: Agreed Nursing Documentation-PMH Past Medical History: No History, Except For Hx Cardiac Problems: Yes - ventricular fibrillation Hx Hypertension: Yes Hx Cancer: No Hx Gastrointestinal Problems: Yes Hx Neurological Problems: Yes Hx Parkinson's Disease: Yes Hx Seizures: Yes Hx Peripheral Neuropathy: Yes Review of Systems All Other Systems: negative except mentioned in HPI Physical Exam Vital Signs Date Time Temp Pulse Resp B/P (MAP) Pulse Ox O2 Delivery O2 Flow Rate FiO2 04/12/19 13:08 99.9 88 16 136/78 (97) 94 Nasal Cannula 2.0 Sp02 EP Interpretation: reviewed, normal General Appearance: no apparent distress, alert, GCS 15, non-toxic, thin Head: normocephalic Eyes: bilateral eye normal inspection, bilateral eye PERRL ENT: normal ENT inspection Neck: normal inspection Respiratory: chest non-tender, lungs clear, normal breath sounds, speaking full sentences Cardiovascular #1: regular rate, rhythm, no edema Gastrointestinal: normal bowel sounds, non tender, soft, non-distended, no guarding, no rebound Rectal: deferred Genitourinary: no CVA tenderness Musculoskeletal: normal inspection Neurologic: other - dementia Psychiatric: other - dementia Skin: other - abscess to R buttock, with packing in place. with surrounding erythema/induration Lymphatic: no adenopathy Medical Decision Making Diagnostic Impression: Primary Impression: Cellulitis and abscess of buttock ER Course Hospital Course 69 yo M presents to ED with rash to R buttock Differential diagnoses include: Cellulitis, abscess, rash. Clinical course Patient placed on stretcher. After initial history, physical exam reveals elderly male in no acute distress. On exam there is a abscess to the right buttock with surrounding induration and fluctuance. There is also a packing in place. Drainage noted. patient does not recall having I&D performed. I called facility and they do not recall I&D being performed. There is significant induration and erythema despite drainage. Patient will be admitted for IV antibiotics labs reviewed - leukocytosis, Hb/Hct stable, no electrolyte abnormalities. CXR - no acute process wound culture obtained. antibiotics given. Dr Durant consulted Case discussed with Dr Loo (covering for Dr Carpenter) and he agreed to accept the patient to his service for further care and support Diagnosis - cellulitis and abscess of buttock Patient admitted to floor in serious condition Labs Test 04/12/19 14:00 White Blood Count 14.3 K/UL (4.8-10.8) Red Blood Count 4.33 M/UL (4.70-6.10) Hemoglobin 12.6 G/DL (14.2-18.0) Hematocrit 38.1 % (42.0-52.0) Mean Corpuscular Volume 88 FL (80-99) Mean Corpuscular Hemoglobin 29.0 PG (27.0-31.0) Mean Corpuscular Hemoglobin Concent 33.0 G/DL (32.0-36.0) Red Cell Distribution Width 15.4 % (11.6-14.8) Platelet Count 272 K/UL (150-450) Mean Platelet Volume 4.4 FL (6.5-10.1) Neutrophils (%) (Auto) 82.8 % (45.0-75.0) Lymphocytes (%) (Auto) 9.6 % (20.0-45.0) Monocytes (%) (Auto) 4.9 % (1.0-10.0) Eosinophils (%) (Auto) 0.3 % (0.0-3.0) Basophils (%) (Auto) 2.4 % (0.0-2.0) Prothrombin Time 11.3 SEC (9.30-11.50) Prothromb Time International Ratio 1.1 (0.9-1.1) Activated Partial Thromboplast Time 33 SEC (23-33) Sodium Level 140 MMOL/L (136-145) Potassium Level 3.5 MMOL/L (3.5-5.1) Chloride Level 103 MMOL/L (98-107) Carbon Dioxide Level 24 MMOL/L (21-32) Anion Gap 13 mmol/L (5-15) Blood Urea Nitrogen 17 mg/dL (7-18) Creatinine 0.8 MG/DL (0.55-1.30) Estimat Glomerular Filtration Rate > 60 mL/min (>60) Glucose Level 159 MG/DL (74-106) Lactic Acid Level 1.80 mmol/L (0.4-2.0) Calcium Level 9.1 MG/DL (8.5-10.1) Total Bilirubin 0.7 MG/DL (0.2-1.0) Aspartate Amino Transf (AST/SGOT) 21 U/L (15-37) Alanine Aminotransferase (ALT/SGPT) 21 U/L (12-78) Alkaline Phosphatase 152 U/L (46-116) Pro-B-Type Natriuretic Peptide 755 pg/mL (0-125) Total Protein 7.8 G/DL (6.4-8.2) Albumin 3.0 G/DL (3.4-5.0) Globulin 4.8 g/dL Albumin/Globulin Ratio 0.6 (1.0-2.7) Chest X-Ray Diagnostic Results Chest X-Ray Diagnostic Results : Chest X-Ray Ordered: Yes # of Views/Limited/Complete: 1 View Indication: Other EP Interpretation: Yes Interpretation: no consolidation, no effusion, no pneumothorax, no acute cardiopulmonary disease Impression: No acute disease Electronically Signed by: Electronically signed by Hang Levin MD Last Vital Signs Date Time Temp Pulse Resp B/P (MAP) Pulse Ox O2 Delivery O2 Flow Rate FiO2 04/12/19 15:49 99.0 75 25 138/75 96 04/12/19 13:32 Nasal Cannula 2.0 Status: improved Disposition: ADMITTED INPATIENT Condition: Serious Referrals: Liam Carpenter MD (PCP) Hang Levin MD Apr 12, 2019 16:27
--- NOTE | 2019-04-12 17:30 | NUR ---
NURSE NOTES: RN ASSESSED RIGHT BUTTOCK WOUND, CLEANSED WITH STERILE NS, APPLIED THERAHONEY, GAUZE, AND OPTIFOAM DRESSING UNTIL FURTHER ORDERS. PT IN NO APPARENT DISTRESS AT THIS TIME. PT WAS ORIENTED TO ROOM. PT PLACED IN HIGH VILLAFUERTE'S POSITION WITH HOB ELEVATED. BED IN LOWEST POSITION WITH BEDSIDE RAILS X3 RAISED. CALL LIGHT WITHIN REACH. RECEIVED ORDERS FROM DR HUI, HOME MEDS REVIEWED WITH DR HUI. WILL CONTINUE TO MONITOR.
[2019-04-12] MEDS: Benztropine 1mg tab ORAL SCH (18:00)
[2019-04-12] MEDS: Vancomycin 750mg/NS 275ml IVPB SCH ×2 (18:06)
--- NOTE | 2019-04-12 18:48 | Consultation ---
History of Present Illness General Date patient seen: Apr 12, 2019 Reason for Hospitalization: Skin Rash/Abscess Present Illness HPI This is a very pleasant 69-year-old male with multiple medical comorbidities who is a long-term resident that presented to [facility] emergency department for evaluation of was believed to be a rash on his right buttock. Patient states that while he was being cleaned after incontinence this morning at the long-term they identified an area of wound and opening and drainage and therefore was brought in for evaluation. Upon evaluation emerge department was identified to have packing and dressing on the wound. Patient was identified to have a fever, leukocytosis, abnormal labs. Patient was admitted for further care management surgery was called to evaluate. Patient seen, patient [place], chart reviewed. Patient states that he only became aware of this starting this morning and has had no prior history of this or knowledge of it. Allergies: Coded Allergies: No Known Allergies (Unverified , 07/20/15) Medication History Scheduled Benztropine Mesylate* (Cogentin*), 1 MG PO BID, (Reported) Docusate Sodium* (Colace*), 100 MG ORAL TWICE A DAY, (Reported) Famotidine (Famotidine), 20 MG ORAL BID, (Reported) Gabapentin* (Gabapentin*), 300 MG ORAL BID, (Reported) Levetiracetam* (Levetiracetam*), 1,000 MG ORAL TWICE A DAY, (Reported) Losartan Potassium* (Losartan Potassium*), 50 MG ORAL DAILY, (Reported) Omeprazole (Omeprazole), 40 MG ORAL DAILY, (Reported) Risperidone (Risperidone Odt), 1 MG PO every morning, (Reported) Risperidone (Risperidone Odt), 2 MG PO QHS, (Reported) Risperidone* (Risperdal*), 2 MG ORAL DAILY, (Reported) Sennosides (Senna), 17.2 MG PO BID, (Reported) Sodium Chloride* (Sodium Chloride*), 2 GM PO BID, (Reported) Tamsulosin Hcl (Tamsulosin Hcl*), 0.4 MG ORAL BEDTIME, (Reported) Patient History History Provided By: Patient, Medical Record, PMD Healthcare decision maker N Resuscitation status Full Code Advanced Directive on File Past Medical/Surgical History Past Medical/Surgical History: (1) COPD (chronic obstructive pulmonary disease) (2) Epilepsy (3) Pyelonephritis (4) BPH (benign prostatic hyperplasia) (5) Cellulitis and abscess of buttock Review of Systems Review of Symptoms General ROS: no weight loss or fever Psychological ROS: no depression or mood changes, no memory loss Ophthalmic ROS: no visual changes or eye irritation ENT ROS: no nasal congestion, hearing loss, dizziness Allergy and Immunology ROS: no allergic symptoms or urticaria Hematological and Lymphatic ROS: no swollen glands, unusual bleeding or bruising Endocrine ROS: no polyuria, polydipsia, weight changes, temperature intolerance Respiratory ROS: no cough, shortness of breath, or wheezing Cardiovascular ROS: no chest pain or dyspnea on exertion Gastrointestinal ROS: denies abdominal pain, no bright red blood in stool. Musculoskeletal ROS: no myalgias or arthralgias Neurological ROS: no TIA or stroke symptoms Dermatological ROS: no new or changing skin lesions, rashes or pruritis Physical Exam Physical Exam General appearance: alert, cooperative, no distress, appears stated age Head: Normocephalic, without obvious abnormality, atraumatic Eyes: conjunctivae/corneas clear. PERRL, EOM's intact. Fundi benign Throat: Lips, mucosa, and tongue normal. Teeth and gums normal Neck: supple, symmetrical, trachea midline, no adenopathy, thyroid: not enlarged, symmetric, no tenderness/mass/nodules, no carotid bruit and no JVD Lungs: clear to auscultation bilaterally Heart: regular rate and rhythm, S1, S2 normal, no murmur, click, rub or gallop Abdomen: soft, non-tender. Bowel sounds normal. No masses, no organomegaly Extremities: extremities normal, atraumatic, no cyanosis or edema Pulses: 2+ and symmetric Skin: Skin color, texture, turgor normal. No rashes or lesions Neurologic: Grossly normal Last 24 Hour Vital Signs Date Time Temp Pulse Resp B/P (MAP) Pulse Ox O2 Delivery O2 Flow Rate FiO2 04/12/19 15:49 99.0 75 25 138/75 96 04/12/19 14:47 99.0 75 25 138/75 96 04/12/19 14:14 99.9 04/12/19 13:32 99.9 80 16 136/78 94 Nasal Cannula 2.0 04/12/19 13:08 99.9 88 16 136/78 (97) 94 Nasal Cannula 2.0 Laboratory Tests Test 04/12/19 14:00 White Blood Count 14.3 K/UL (4.8-10.8) H Red Blood Count 4.33 M/UL (4.70-6.10) L Hemoglobin 12.6 G/DL (14.2-18.0) L Hematocrit 38.1 % (42.0-52.0) L Mean Corpuscular Volume 88 FL (80-99) Mean Corpuscular Hemoglobin 29.0 PG (27.0-31.0) Mean Corpuscular Hemoglobin Concent 33.0 G/DL (32.0-36.0) Red Cell Distribution Width 15.4 % (11.6-14.8) H Platelet Count 272 K/UL (150-450) Mean Platelet Volume 4.4 FL (6.5-10.1) L Neutrophils (%) (Auto) 82.8 % (45.0-75.0) H Lymphocytes (%) (Auto) 9.6 % (20.0-45.0) L Monocytes (%) (Auto) 4.9 % (1.0-10.0) Eosinophils (%) (Auto) 0.3 % (0.0-3.0) Basophils (%) (Auto) 2.4 % (0.0-2.0) H Prothrombin Time 11.3 SEC (9.30-11.50) Prothromb Time International Ratio 1.1 (0.9-1.1) Activated Partial Thromboplast Time 33 SEC (23-33) Sodium Level 140 MMOL/L (136-145) Potassium Level 3.5 MMOL/L (3.5-5.1) Chloride Level 103 MMOL/L (98-107) Carbon Dioxide Level 24 MMOL/L (21-32) Anion Gap 13 mmol/L (5-15) Blood Urea Nitrogen 17 mg/dL (7-18) Creatinine 0.8 MG/DL (0.55-1.30) Estimat Glomerular Filtration Rate > 60 mL/min (>60) Glucose Level 159 MG/DL (74-106) H Lactic Acid Level 1.80 mmol/L (0.4-2.0) Calcium Level 9.1 MG/DL (8.5-10.1) Total Bilirubin 0.7 MG/DL (0.2-1.0) Aspartate Amino Transf (AST/SGOT) 21 U/L (15-37) Alanine Aminotransferase (ALT/SGPT) 21 U/L (12-78) Alkaline Phosphatase 152 U/L (46-116) H Pro-B-Type Natriuretic Peptide 755 pg/mL (0-125) H Total Protein 7.8 G/DL (6.4-8.2) Albumin 3.0 G/DL (3.4-5.0) L Globulin 4.8 g/dL Albumin/Globulin Ratio 0.6 (1.0-2.7) L Height (Feet): 5 Height (Inches): 4.00 Weight (Pounds): 142 Medications Current Medications Medications (Trade) Dose Ordered Sig/Nikolay Route PRN Reason Start Time Stop Time Status Last Admin Dose Admin Acetaminophen (Tylenol) 650 mg Q4H PRN ORAL Mild Pain/Temp > 100.5 04/12/19 16:42 05/12/19 16:41 Benztropine Mesylate (Cogentin) 1 mg BID ORAL 04/12/19 18:00 05/12/19 17:59 Gabapentin (Neurontin) 300 mg Q12HR ORAL 04/12/19 21:00 05/12/19 20:59 Heparin Sodium (Porcine) (Heparin 5000 units/ml) 5,000 units EVERY 12 HOURS SUBQ 04/12/19 21:00 05/12/19 20:59 Levetiracetam (Keppra) 1,000 mg Q12HR ORAL 04/12/19 21:00 05/12/19 20:59 Losartan Potassium (Cozaar) 50 mg DAILY ORAL 04/13/19 09:00 05/13/19 08:59 Piperacillin Sod/ Tazobactam Sod 3.375 gm/Sodium Chloride 110 ml @ 27.5 mls/hr EVERY 8 HOURS IVPB 04/12/19 22:00 04/17/19 21:59 Risperidone (RisperDAL) 1 mg DAILY ORAL 04/13/19 09:00 05/13/19 08:59 Risperidone (RisperDAL) 2 mg QHS ORAL 04/12/19 21:00 05/12/19 20:59 Tamsulosin HCl (Flomax) 0.4 mg BEDTIME ORAL 04/12/19 21:00 05/12/19 20:59 Vancomycin HCl (Vanco rx to dose) 1 ea DAILY PRN MISC Per rx protocol 04/12/19 16:45 05/12/19 16:44 Vancomycin HCl 750 mg/Sodium Chloride 275 ml @ 183.333 mls/hr Q12HR@0500,1700 IVPB 04/12/19 17:00 04/17/19 16:59 04/12/19 18:06 Assessment/Plan Problem List: (1) Cellulitis and abscess of buttock Assessment & Plan: This is a 69 m old male with fever, leukocytosis, abscess and cellulitis of the right buttock. Patient unsure of duration and did not know he had this prior. When evaluated the bedside patient had a 1 cm opening with seropurulent drainage and surrounding cellulitis erythema tenderness and induration. No other fluctuant cavities identified. The periwound has erythema and induration and extends medially towards the perirectal area. There is some skin changes in this area as well some related to incontinence and some from the cellulitis. Given spontaneous drainage will hold on acute surgical intervention. Will order CT pelvis to evaluate for possible deep abscess. Recommend IV antibiotics. Okay for diet. Will follow with recommendations. Thank you for allowing for participation patient's care okay for diet CT pelvis IV abx AM labs packing and dressing BID to buttock wound will follow with exam and recs thank you ICD Codes: L02.31 - Cutaneous abscess of buttock; L03.317 - Cellulitis of buttock SNOMED: [id number] Abdiel Durant Apr 12, 2019 18:48
[2019-04-12] MEDS ORDERED: Isovue-300 100ml vial INJ PRN (19:00)
--- NOTE | 2019-04-12 19:50 | NUR ---
NURSE NOTES: Received a report from Alex Sánchez RN. Pt is in stable condition. Able to make needs known. IV site is patent and intact. Bed in lowest position. Bed alarm is on. Call light within reach. Will continue to monitor.
[2019-04-12 20:00] VITALS: BP 139/76
--- NOTE | 2019-04-12 20:00 | NUR ---
CASE MANAGEMENT: REVIEW 69Y/M YOJANA FROM [facility] CC: RASH . ABSCESS SI: RIGHT BUTTOCK CELLULITIS T 99.9 HR 75 RR 25 BP 138/75 SAT 94% NC/2L WBC 14.3 H/H 12.6/38.1 ALK PHOS 152 BNP 755 IS: ZOSYN IV X1 NS IVF BOLUS X1 TYLENOL PO X1 PATIENT ADMITTED TO MED/SURG UNIT 04/12/2019 DCP: PATIENT IS FROM [facility]
--- NOTE | 2019-04-12 20:00 | NUR ---
HAND-OFF: Report given to Nadia LANE RN.
[2019-04-12] MEDS: Heparin 5000 units/ml inj SUBQ SCH ×2 (21:00→21:58)
--- NOTE | 2019-04-12 21:34 | History & Physical ---
History and Physical History & Physicial #[id number] Leonel Loo MD Apr 12, 2019 21:34
[2019-04-12] MEDS: Tamsulosin 0.4mg cap ORAL SCH (21:57)
[2019-04-12] MEDS: Piperacillin/Tazobactam 3.375 GM in NS 110 ML IVPB SCH (21:57)
--- NOTE | 2019-04-12 23:30 | History and Physical Report ---
DATE OF ADMISSION: 04/12/2019 REASON OF ADMISSION: Right buttock pain. HISTORY OF PRESENT ILLNESS: This is a very pleasant 69-year-old male, patient of Dr. Liam Carpenter, who I am covering for, is a resident of a [email or web address], has been brought to the emergency room of [facility] with what looks like an abscess to the right buttock. He has a history of schizophrenia, does not recall any injury to the buttock or any sores there. Nevertheless, he was found to have a white count of 14,000, was given some Zosyn in the emergency room, and was decided to be admitted. He denies however any chills or fever. He is not a very good historian. PAST MEDICAL HISTORY: Significant for schizophrenia, COPD, osteoarthritis, seizure disorder, previous hyponatremia, and previous pneumonia. PAST SURGICAL HISTORY: Surgery on the left knee as well as the right hand. SOCIAL HISTORY: He has been a smoker for the most of his adult life. He is smoking apparently about four cigarettes a day. He is not without any children. He worked in [employer]. He is living in a [facility] at this time. MEDICATIONS: His medications include Cogentin 1 mg p.o. b.i.d., gabapentin 300 mg p.o. b.i.d., Keppra 1000 mg p.o. q.12 hours, losartan 50 mg p.o. daily, Risperdal 2 mg p.o. at bedtime and 2 mg q.12 hours and 1 mg p.o. daily, Flomax 0.4 mg p.o. at bedtime, and Pepcid 20 mg p.o. b.i.d. ALLERGIES: NKDA. REVIEW OF SYSTEMS: Somewhat sketchy since he is not able to give me a very fruitful history. Apparently, he woke up today with some pain on the right buttock and was found to have the abscess on the buttock. No chest pain. No shortness of breath. At this point, no nausea or vomiting. He has been having some acid reflux, for which he is on Pepcid apparently.PSYCHOLOGICAL: He has a history of schizophrenia. No paresthesia, muscle weakness, diplopia or seizure at this point. PHYSICAL EXAMINATION: GENERAL: Does not seem to be in much acute distress. VITAL SIGNS: Blood pressure is 138/75, pulse of 75, temperature 99.9 degrees Fahrenheit. HEENT: Head is atraumatic. Eyes, pupils reactive to light. No evidence of papilledema. Ears, canals are clear. Tympanic membranes are intact. Nose, nares are patent without any nasal discharge. Throat without inflammation or exudate. NECK: Supple. Jugular venous distention is within normal limits. No cervical adenopathies. No thyromegaly. HEART: Regular rhythm. No gallop. LUNGS: Clear to auscultation. ABDOMEN: Soft. Bowel sounds positive. No hepatosplenomegaly. EXTREMITIES: Lower extremity shows no cyanosis or clubbing. No pedal edema. NEUROLOGICAL: Cranial nerves are intact. There are no focal neurological deficits present. SKIN: Examination on the buttock is showing a small wound, which is dressed. There is some pus expressing out of it. IMPRESSION: 1. Cellulitis and abscess of the right buttock. 2. Leukocytosis. 3. Seizure disorder. 4. Schizophrenia. PLAN: He is admitted to the regular floor. He is going to get a consult with Dr. Durant. IV antibiotics with vancomycin and Zosyn are in order and he will go from there. Leonel Loo M.D. DR: KATIE JOB#: [id number] CC:
[2019-04-13] VITALS: BP_SYST 132; BP_SYST 148; BP_DIAS 63; BP_DIAS 71
[2019-04-13] MEDS: Vancomycin 750mg/NS 275ml IVPB SCH ×4 (04:06→17:00)
[2019-04-13] MEDS: Piperacillin/Tazobactam 3.375 GM in NS 110 ML IVPB SCH ×3 (06:18→22:23)
[2019-04-13 06:43] LABS: BASOPHILS % (AUTO) 0.7 % (0.0-2.0); EOSINOPHILS % (AUTO) 0.4 % (0.0-3.0); HEMATOCRIT 28.2 % (42.0-52.0); HEMOGLOBIN 9.2 G/DL (14.2-18.0); LYMPHOCYTES % (AUTO) 10.3 % (20.0-45.0); MEAN CORPUSCULAR VOLUME 90 FL (80-99); MONOCYTES % (AUTO) 5.8 % (1.0-10.0); NEUTROPHILS % (AUTO) 82.8 % (45.0-75.0); PLATELET COUNT 216 K/UL (150-450); RED BLOOD COUNT 3.15 M/UL (4.70-6.10); RED CELL DISTRIBUTION WIDTH 13.7 % (11.6-14.8)
--- NOTE | 2019-04-13 07:05 | NUR ---
HAND-OFF: Report given to BEVERLY Eaton.
[2019-04-13 07:13] LABS: ALANINE AMINOTRANSFERASE 33 U/L (12-78); ALBUMIN 2.3 G/DL (3.4-5.0); ALBUMIN/GLOBULIN RATIO 0.6 (1.0-2.7); ALKALINE PHOSPHATASE 130 U/L (46-116); ANION GAP 7 mmol/L (5-15); ASPARTATE AMINO TRANSFERASE 35 U/L (15-37); BILIRUBIN,TOTAL 0.6 MG/DL (0.2-1.0); BLOOD UREA NITROGEN 16 mg/dL (7-18); CALCIUM 8.3 MG/DL (8.5-10.1); CARBON DIOXIDE 26 MMOL/L (21-32); CHLORIDE 105 MMOL/L (98-107); CREATININE 0.7 MG/DL (0.55-1.30); POTASSIUM 3.5 MMOL/L (3.5-5.1); SODIUM 138 MMOL/L (136-145)
--- NOTE | 2019-04-13 08:13 | NUR ---
NURSE NOTES: received report from BEVERLY Sullivan. patient in bed. alert. oriented. forgetful at times. verbally responsive. no respiratory distress noted. no pain at this time. IV RH 22g. pending culture. bed in the lowest position. call light within reach. alarm on. will conitnue to provide plan of care.
[2019-04-13] MEDS: Benztropine 1mg tab ORAL SCH ×2 (08:33→18:15)
[2019-04-13] MEDS: Losartan 50mg tab ORAL SCH (08:42)
[2019-04-13] MEDS: Heparin 5000 units/ml inj SUBQ SCH ×2 (08:42→20:18)
--- NOTE | 2019-04-13 08:42 | NUR ---
NURSE NOTES: patient refused to get heparin sq injection. plt 216. explained risks and benefits but still refused. will continue to monitor patient condition,
--- NOTE | 2019-04-13 09:06 | General Progress Note ---
Assessment/Plan Assessment/Plan: 1) R buttock abcess, R/O deep infection 2) Schizophrenia 3) Euvolemic Plan: IV ATB's CT scan of abdomen and pelvis Subjective Allergies: Coded Allergies: No Known Allergies (Unverified , 07/20/15) Subjective He is feeling better, WBC is down to 10 K, fever spiked at 101.6 Objective Last 24 Hour Vital Signs Date Time Temp Pulse Resp B/P (MAP) Pulse Ox O2 Delivery O2 Flow Rate FiO2 04/13/19 08:42 130/69 04/13/19 05:10 99.7 04/13/19 00:00 101.6 53 18 148/71 (96) 95 04/13/19 00:00 99.6 60 18 132/63 (86) 97 04/12/19 21:00 Room Air 04/12/19 20:00 99.8 58 18 139/76 (97) 97 04/12/19 18:44 Room Air 04/12/19 15:49 99.0 75 25 138/75 96 04/12/19 14:47 99.0 75 25 138/75 96 04/12/19 14:14 99.9 04/12/19 13:32 99.9 80 16 136/78 94 Nasal Cannula 2.0 04/12/19 13:08 99.9 88 16 136/78 (97) 94 Nasal Cannula 2.0 Intake and Output 04/12/19 04/13/19 19:00 07:00 Intake Total 660.000 ml Balance 660.000 ml Intake IV Total 660.000 ml # Voids 1 Laboratory Tests 04/12/19 14:00: White Blood Count 14.3H, Red Blood Count 4.33L, Hemoglobin 12.6L, Hematocrit 38.1L, Mean Corpuscular Volume 88, Mean Corpuscular Hemoglobin 29.0, Mean Corpuscular Hemoglobin Concent 33.0, Red Cell Distribution Width 15.4H, Platelet Count 272, Mean Platelet Volume 4.4L, Neutrophils (%) (Auto) 82.8H, Lymphocytes (%) (Auto) 9.6L, Monocytes (%) (Auto) 4.9, Eosinophils (%) (Auto) 0.3, Basophils (%) (Auto) 2.4H, Prothrombin Time 11.3, Prothromb Time International Ratio 1.1, Activated Partial Thromboplast Time 33, Sodium Level 140, Potassium Level 3.5, Chloride Level 103, Carbon Dioxide Level 24, Anion Gap 13, Blood Urea Nitrogen 17, Creatinine 0.8, Estimat Glomerular Filtration Rate > 60, Glucose Level 159H, Lactic Acid Level 1.80, Calcium Level 9.1, Total Bilirubin 0.7, Aspartate Amino Transf (AST/SGOT) 21, Alanine Aminotransferase ( ALT/SGPT) 21, Alkaline Phosphatase 152H, Pro-B-Type Natriuretic Peptide 755H, Total Protein 7.8, Albumin 3.0L, Globulin 4.8, Albumin/Globulin Ratio 0.6L 04/13/19 05:30: White Blood Count 10.0, Red Blood Count 3.15L, Hemoglobin 9.2L, Hematocrit 28.2L , Mean Corpuscular Volume 90, Mean Corpuscular Hemoglobin 29.2, Mean Corpuscular Hemoglobin Concent 32.6, Red Cell Distribution Width 13.7, Platelet Count 216, Mean Platelet Volume 4.8L, Neutrophils (%) (Auto) 82.8H, Lymphocytes (%) (Auto) 10.3L, Monocytes (%) (Auto) 5.8, Eosinophils (%) (Auto) 0.4, Basophils (%) (Auto) 0.7, Sodium Level 138, Potassium Level 3.5, Chloride Level 105, Carbon Dioxide Level 26, Anion Gap 7, Blood Urea Nitrogen 16, Creatinine 0.7, Estimat Glomerular Filtration Rate > 60, Glucose Level 107H, Calcium Level 8.3L, Total Bilirubin 0.6, Aspartate Amino Transf (AST/SGOT) 35, Alanine Aminotransferase (ALT/SGPT) 33, Alkaline Phosphatase 130H, Total Protein 6.3L, Albumin 2.3L, Globulin 4.0, Albumin/Globulin Ratio 0.6L, Erythrocyte Sedimentation Rate 69H, C-Reactive Protein, Quantitative 14.1H Height (Feet): 5 Height (Inches): 4.00 Weight (Pounds): 138 General Appearance: WD/WN, no apparent distress EENT: PERRL/EOMI Neck: non-tender, normal alignment Cardiovascular: normal rate, regular rhythm Respiratory/Chest: chest wall non-tender, lungs clear Abdomen: non tender, soft Extremities: normal range of motion, non-tender Leonel Loo MD Apr 13, 2019 09:06
--- NOTE | 2019-04-13 09:30 | NUR ---
NURSE NOTES: patient left unit for CT scan with stable condition via hospital bed. inserted new IV on LFA22g d/t accidentally discontinued by patient. new IV intact.
--- NOTE | 2019-04-13 10:00 | NUR ---
NURSE NOTES: patient came back to the unit after CT scan with stable condition, alert. oriented. verbally responsive. no respiratory distress noted.
--- NOTE | 2019-04-13 12:06 | Surgery Progress Note ---
Surgery Progress Note Subjective Symptoms: improved, voiding well, passing flatus, pain decreased Additional Comments leukocytosis resolved labs improved still draining dressings intact states he feels well pending CT results Objective Last 24 Hour Vital Signs Date Time Temp Pulse Resp B/P (MAP) Pulse Ox O2 Delivery O2 Flow Rate FiO2 04/13/19 09:00 Room Air 04/13/19 08:42 130/69 04/13/19 05:10 99.7 04/13/19 00:00 101.6 53 18 148/71 (96) 95 04/13/19 00:00 99.6 60 18 132/63 (86) 97 04/12/19 21:00 Room Air 04/12/19 20:00 99.8 58 18 139/76 (97) 97 04/12/19 18:44 Room Air 04/12/19 15:49 99.0 75 25 138/75 96 04/12/19 14:47 99.0 75 25 138/75 96 04/12/19 14:14 99.9 04/12/19 13:32 99.9 80 16 136/78 94 Nasal Cannula 2.0 04/12/19 13:08 99.9 88 16 136/78 (97) 94 Nasal Cannula 2.0 I&O Intake and Output 04/12/19 04/13/19 19:00 07:00 Intake Total 660.000 ml Balance 660.000 ml Intake IV Total 660.000 ml # Voids 1 Dressing: saturated Wound: clean Cardiovascular: RSR Respiratory: clear Abdomen: soft, flat, non-tender, present bowel sounds, non-distended Extremities: no edema, no tenderness, no cyanosis Laboratory Tests Test 04/12/19 14:00 04/13/19 05:30 White Blood Count 14.3 K/UL (4.8-10.8) H 10.0 K/UL (4.8-10.8) Red Blood Count 4.33 M/UL (4.70-6.10) L 3.15 M/UL (4.70-6.10) L Hemoglobin 12.6 G/DL (14.2-18.0) L 9.2 G/DL (14.2-18.0) L Hematocrit 38.1 % (42.0-52.0) L 28.2 % (42.0-52.0) L Mean Corpuscular Volume 88 FL (80-99) 90 FL (80-99) Mean Corpuscular Hemoglobin 29.0 PG (27.0-31.0) 29.2 PG (27.0-31.0) Mean Corpuscular Hemoglobin Concent 33.0 G/DL (32.0-36.0) 32.6 G/DL (32.0-36.0) Red Cell Distribution Width 15.4 % (11.6-14.8) H 13.7 % (11.6-14.8) Platelet Count 272 K/UL (150-450) 216 K/UL (150-450) Mean Platelet Volume 4.4 FL (6.5-10.1) L 4.8 FL (6.5-10.1) L Neutrophils (%) (Auto) 82.8 % (45.0-75.0) H 82.8 % (45.0-75.0) H Lymphocytes (%) (Auto) 9.6 % (20.0-45.0) L 10.3 % (20.0-45.0) L Monocytes (%) (Auto) 4.9 % (1.0-10.0) 5.8 % (1.0-10.0) Eosinophils (%) (Auto) 0.3 % (0.0-3.0) 0.4 % (0.0-3.0) Basophils (%) (Auto) 2.4 % (0.0-2.0) H 0.7 % (0.0-2.0) Prothrombin Time 11.3 SEC (9.30-11.50) Prothromb Time International Ratio 1.1 (0.9-1.1) Activated Partial Thromboplast Time 33 SEC (23-33) Sodium Level 140 MMOL/L (136-145) 138 MMOL/L (136-145) Potassium Level 3.5 MMOL/L (3.5-5.1) 3.5 MMOL/L (3.5-5.1) Chloride Level 103 MMOL/L (98-107) 105 MMOL/L (98-107) Carbon Dioxide Level 24 MMOL/L (21-32) 26 MMOL/L (21-32) Anion Gap 13 mmol/L (5-15) 7 mmol/L (5-15) Blood Urea Nitrogen 17 mg/dL (7-18) 16 mg/dL (7-18) Creatinine 0.8 MG/DL (0.55-1.30) 0.7 MG/DL (0.55-1.30) Estimat Glomerular Filtration Rate > 60 mL/min (>60) > 60 mL/min (>60) Glucose Level 159 MG/DL (74-106) H 107 MG/DL (74-106) H Lactic Acid Level 1.80 mmol/L (0.4-2.0) Calcium Level 9.1 MG/DL (8.5-10.1) 8.3 MG/DL (8.5-10.1) L Total Bilirubin 0.7 MG/DL (0.2-1.0) 0.6 MG/DL (0.2-1.0) Aspartate Amino Transf (AST/SGOT) 21 U/L (15-37) 35 U/L (15-37) Alanine Aminotransferase (ALT/SGPT) 21 U/L (12-78) 33 U/L (12-78) Alkaline Phosphatase 152 U/L (46-116) H 130 U/L (46-116) H Pro-B-Type Natriuretic Peptide 755 pg/mL (0-125) H Total Protein 7.8 G/DL (6.4-8.2) 6.3 G/DL (6.4-8.2) L Albumin 3.0 G/DL (3.4-5.0) L 2.3 G/DL (3.4-5.0) L Globulin 4.8 g/dL 4.0 g/dL Albumin/Globulin Ratio 0.6 (1.0-2.7) L 0.6 (1.0-2.7) L Erythrocyte Sedimentation Rate 69 MM/HR (0-20) H C-Reactive Protein, Quantitative 14.1 mg/dL (0.00-0.90) H Plan Problems: (1) Cellulitis and abscess of buttock Assessment & Plan: This is a 69 m old male with fever, leukocytosis, abscess and cellulitis of the right buttock. Patient unsure of duration and did not know he had this prior. When evaluated the bedside patient had a 1 cm opening with seropurulent drainage and surrounding cellulitis erythema tenderness and induration. No other fluctuant cavities identified. The periwound has erythema and induration and extends medially towards the perirectal area. There is some skin changes in this area as well some related to incontinence and some from the cellulitis. Given spontaneous drainage will hold on acute surgical intervention. Will order CT pelvis to evaluate for possible deep abscess. Recommend IV antibiotics. Okay for diet. Will follow with recommendations. Thank you for allowing for participation patient's care okay for diet CT pelvis - pending results IV abx AM labs packing and dressing BID to buttock wound will follow with exam and recs thank you Abdiel Durant Apr 13, 2019 12:06
--- NOTE | 2019-04-13 13:14 | NUR ---
NURSE NOTES: received call from Marisabel/Lily. patient blood culture with Gram Positive cocci plaster. notified Dr. Loo and no new order at this time.
--- NOTE | 2019-04-13 13:15 | NUR ---
RD ASSESSMENT & RECOMMENDATIONS SEE CARE ACTIVITY FOR COMPLETE ASSESSMENT DAILY ESTIMATED NEEDS: Needs based on Wound/ 64.5kg 25-30 kcals/kg 0494-5395 total kcals 1.25-1.5 g protein/kg 65-97 g total protein 25-30 mL/kg 7778-9838 total fluid mLs NUTRITION DIAGNOSIS: Increased kcal/prot intake needs R/T wound healing as evidenced by pt admitted w/ 1 cm opening with seropurulent drainage and surrounding cellulitis erythema tenderness and induration at right buttock. CURRENT DIET:OSCAR, mech soft fine chop PO DIET RECOMMENDATIONS: Continue OSCAR/ texture as tolerated ADDITIONAL RECOMMENDATIONS: 1) Obtain a calibrated bed scale wt 2) Wound healing: add MVI x 1, Vit C 500mg QD : add ZnSO4 220mg QD x 10 days : Cholo 1pkt BID added to ray 3) Monitor PO intake closely . .
--- NOTE | 2019-04-13 19:20 | NUR ---
HAND-OFF: Report given to BEVERLY Walker.
--- NOTE | 2019-04-13 19:46 | NUR ---
NURSE NOTES: Received patient asleep in bed, easily arousable by name, no s/s of acute distress. IV access asymptomatic, abx currently running. On room air. fall and safety precautions taken.
[2019-04-13 20:00] VITALS: BP 145/72
--- NOTE | 2019-04-13 20:03 | NUR ---
CASE MANAGEMENT: REVIEW SI: RIGHT BUTTOCK CELLULITIS / ABSCESS T 99.8 HR 53 RR 18 BP 148/71 SAT 95% ROOM AIR H/H 9.2/28.[address] PELVIS - PENDING RESULTS IS: ZOSYN IV Q8HR VANCO IV Q12HR HEPARIN SUBQ Q12HR MED/SURG STATUS DCP: PATIENT IS FROM [facility]
[2019-04-13] MEDS: Tamsulosin 0.4mg cap ORAL SCH (20:17)
[2019-04-14 00:08] VITALS: BP 140/71
[2019-04-14 04:00] VITALS: BP 147/69
[2019-04-14] MEDS: Vancomycin 750mg/NS 275ml IVPB SCH ×4 (05:01→17:51)
[2019-04-14] MEDS: Piperacillin/Tazobactam 3.375 GM in NS 110 ML IVPB SCH ×3 (06:04→20:55)
--- NOTE | 2019-04-14 07:25 | NUR ---
HAND-OFF: Report given to BEVERLY Self.
--- NOTE | 2019-04-14 07:57 | NUR ---
NURSE NOTES: Patient alert x3, on room air, no sign of distress and shortness of breath; no sing of chest pain; IV LFA 22G Zosyn running; side raills padded for seizure percussion; side rails up x2, breaks engaged, bed at lowest position. dressing dry and intact. call light within reach; will keep monitoring.
[2019-04-14 08:00] VITALS: BP 138/64
[2019-04-14] MEDS: Losartan 50mg tab ORAL SCH (08:51)
[2019-04-14] MEDS: Benztropine 1mg tab ORAL SCH ×2 (08:51→17:50)
[2019-04-14] MEDS: Heparin 5000 units/ml inj SUBQ SCH ×3 (08:53→20:56)
--- NOTE | 2019-04-14 09:00 | NUR ---
NURSE NOTES: After Heparin medication prepared, patient refused to take the medication. Witness for waste of the medication done by RN, Johnny.
[2019-04-14 12:00] VITALS: BP 142/67
--- NOTE | 2019-04-14 12:40 | NUR ---
NURSE NOTES: Charge Nurse, Miguel received a call from microbiology, patient is positive for MRSA-Nare. Charge Nurse Miguel communicated MD Loo, no new order received. Signs marked with contact isolation, and status board changed.
--- NOTE | 2019-04-14 13:29 | Infectious Diseases Prog Note ---
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 P) 1) vancomycin and zosyn 2) check cultures, CT, labs 3) surgery f/u 4) thank you Subjective Allergies: Coded Allergies: No Known Allergies (Unverified , 07/20/15) Objective Vital Signs Last 24 Hour Vital Signs Date Time Temp Pulse Resp B/P (MAP) Pulse Ox O2 Delivery O2 Flow Rate FiO2 04/14/19 12:00 98.7 50 20 142/67 (92) 99 04/14/19 09:00 Room Air 04/14/19 08:51 138/64 04/14/19 08:00 98.7 51 20 138/64 (88) 97 04/14/19 04:00 99.0 56 18 147/69 (95) 95 04/14/19 00:08 99.5 54 17 140/71 (94) 95 04/13/19 22:37 Room Air 04/13/19 20:00 99.7 55 17 145/72 (96) 95 Height (Feet): 5 Height (Inches): 4.00 Weight (Pounds): 138 Microbiology Date/Time Source Procedure Growth Status 04/12/19 14:43 Blood Blood Culture - Preliminary Staphylococcus Sp Coag Neg Resulted 04/12/19 14:25 Blood Blood Culture - Preliminary NO GROWTH AFTER 24 HOURS Resulted 04/12/19 14:00 Nasal Nares MRSA Culture - Final Staphylococcus Aureus - Mrsa Complete 04/12/19 14:30 Buttock Right Gram Stain - Final Resulted 04/12/19 14:30 Wound Culture - Preliminary Staphylococcus Aureus Gram Negative Bacillus 1 Resulted 04/12/19 14:00 Rectum VRE Culture - Final NO VANCOMYCIN RESISTANT ENTEROCOCCUS ... Complete 04/12/19 14:00 Rectum - Final NO CARBAPENEM-RESISTANT ENTEROBACTERI... Complete Current Medications Medications (Trade) Dose Ordered Sig/Nikolay Route PRN Reason Start Time Stop Time Status Last Admin Dose Admin Acetaminophen (Tylenol) 650 mg Q4H PRN ORAL Mild Pain/Temp > 100.5 04/12/19 16:42 05/12/19 16:41 04/13/19 08:55 Al Hydroxide/Mg Hydroxide (Mylanta) 30 ml Q6H PRN ORAL heart burn 04/12/19 21:30 05/12/19 21:29 04/14/19 08:51 Benztropine Mesylate (Cogentin) 1 mg BID ORAL 04/12/19 18:00 05/12/19 17:59 04/14/19 08:51 Gabapentin (Neurontin) 300 mg Q12HR ORAL 04/12/19 21:00 05/12/19 20:59 04/14/19 08:51 Heparin Sodium (Porcine) (Heparin 5000 units/ml) 5,000 units EVERY 12 HOURS SUBQ 04/12/19 21:00 05/12/19 20:59 04/13/19 20:18 Iopamidol (Isovue-300 100ml) 100 ml NOW PRN INJ Radiology Procedure 04/12/19 19:00 04/14/19 18:48 Levetiracetam (Keppra) 1,000 mg Q12HR ORAL 04/12/19 21:00 05/12/19 20:59 04/14/19 08:51 Losartan Potassium (Cozaar) 50 mg DAILY ORAL 04/13/19 09:00 05/13/19 08:59 04/14/19 08:51 Piperacillin Sod/ Tazobactam Sod 3.375 gm/Sodium Chloride 110 ml @ 27.5 mls/hr EVERY 8 HOURS IVPB 04/12/19 22:00 04/17/19 21:59 04/14/19 06:04 Risperidone (RisperDAL) 1 mg DAILY ORAL 04/13/19 09:00 05/13/19 08:59 04/14/19 08:52 Risperidone (RisperDAL) 2 mg QHS ORAL 04/12/19 21:00 05/12/19 20:59 04/13/19 20:17 Tamsulosin HCl (Flomax) 0.4 mg BEDTIME ORAL 04/12/19 21:00 05/12/19 20:59 04/13/19 20:17 Vancomycin HCl (Vanco rx to dose) 1 ea DAILY PRN MISC Per rx protocol 04/12/19 16:45 05/12/19 16:44 Vancomycin HCl 750 mg/Sodium Chloride 275 ml @ 183.333 mls/hr Q12HR@0500,1700 IVPB 04/12/19 17:00 04/17/19 16:59 04/14/19 05:01 Kassidy Chino MD Apr 14, 2019 13:29
--- NOTE | 2019-04-14 14:23 | NUR ---
NURSE NOTES: I spoke to pharmacy salesperson regarding Zosyn. Waiting for Zosyn.
--- NOTE | 2019-04-14 14:25 | NUR ---
NURSE NOTES: Patient requested Tylenol for headache; Tylenol 650 give. Will keep monitoring.
--- NOTE | 2019-04-14 14:55 | General Progress Note ---
Assessment/Plan Assessment/Plan: 1) R buttock abcess, R/O deep infection, ? perirectal abcess 2) Schizophrenia 3) Euvolemic Plan: IV ATB's ID consult Subjective Allergies: Coded Allergies: No Known Allergies (Unverified , 07/20/15) Subjective Ct is showing possible perirectal abcess, no c/p or sob Objective Last 24 Hour Vital Signs Date Time Temp Pulse Resp B/P (MAP) Pulse Ox O2 Delivery O2 Flow Rate FiO2 04/14/19 12:00 98.7 50 20 142/67 (92) 99 04/14/19 09:00 Room Air 04/14/19 08:51 138/64 04/14/19 08:00 98.7 51 20 138/64 (88) 97 04/14/19 04:00 99.0 56 18 147/69 (95) 95 04/14/19 00:08 99.5 54 17 140/71 (94) 95 04/13/19 22:37 Room Air 04/13/19 20:00 99.7 55 17 145/72 (96) 95 Intake and Output 04/13/19 04/14/19 18:59 06:59 Intake Total 110.0 ml Balance 110.0 ml Intake IV Total 110.0 ml Height (Feet): 5 Height (Inches): 4.00 Weight (Pounds): 138 General Appearance: WD/WN, alert EENT: PERRL/EOMI, TMs normal Cardiovascular: normal peripheral pulses, normal rate Respiratory/Chest: lungs clear Abdomen: normal bowel sounds, non tender Leonel Loo MD Apr 14, 2019 14:55
[2019-04-14 16:00] VITALS: BP 142/72
--- NOTE | 2019-04-14 16:03 | Surgery Progress Note ---
Surgery Progress Note Subjective Additional Comments no acute events states he feels better labs improved afebrile, HD stable CT reviewed with radiology. phlegmon near rectum and perirectal. no clear defined abscess. constipated Objective Last 24 Hour Vital Signs Date Time Temp Pulse Resp B/P (MAP) Pulse Ox O2 Delivery O2 Flow Rate FiO2 04/14/19 14:45 98.7 04/14/19 12:00 98.7 50 20 142/67 (92) 99 04/14/19 09:00 Room Air 04/14/19 08:51 138/64 04/14/19 08:00 98.7 51 20 138/64 (88) 97 04/14/19 04:00 99.0 56 18 147/69 (95) 95 04/14/19 00:08 99.5 54 17 140/71 (94) 95 04/13/19 22:37 Room Air 04/13/19 20:00 99.7 55 17 145/72 (96) 95 I&O Intake and Output 04/13/19 04/14/19 19:00 07:00 Intake Total 110.0 ml Balance 110.0 ml Intake IV Total 110.0 ml Dressing: saturated Cardiovascular: RSR Respiratory: clear Abdomen: soft, non-tender, present bowel sounds Extremities: no tenderness, no cyanosis Plan Problems: (1) Cellulitis and abscess of buttock Assessment & Plan: This is a 69 m old male with fever, leukocytosis, abscess and cellulitis of the right buttock. Patient unsure of duration and did not know he had this prior. When evaluated the bedside patient had a 1 cm opening with seropurulent drainage and surrounding cellulitis erythema tenderness and induration. No other fluctuant cavities identified. The periwound has erythema and induration and extends medially towards the perirectal area. There is some skin changes in this area as well some related to incontinence and some from the cellulitis. Given spontaneous drainage will hold on acute surgical intervention. Will order CT pelvis to evaluate for possible deep abscess. Recommend IV antibiotics. Okay for diet. Will follow with recommendations. Thank you for allowing for participation patient's care CT reviewed with radiology. phlegmon near rectum and perirectal. no clear defined abscess. constipated no acute surgical intervention planned cont with ABX for now phlegmon may form abscess but seems to be draining already likely has had this for some time bowel regimen. okay for diet IV abx AM labs packing and dressing BID to buttock wound will follow with exam and recs thank you Abdiel Durant Apr 14, 2019 16:03
[2019-04-14] MEDS ORDERED: Milk of Magnesia 30ml Ud ORAL SCH (16:15)
[2019-04-14] MEDS ORDERED: Milk of Magnesia 30ml Ud ORAL PRN (16:15)
[2019-04-14] MEDS: Docusate 100mg tablet ORAL SCH (17:50)
--- NOTE | 2019-04-14 19:27 | NUR ---
HAND-OFF: Report given to BEVERLY Ledesma.
[2019-04-14 20:00] VITALS: BP 162/77
--- NOTE | 2019-04-14 20:00 | NUR ---
NURSE NOTES: Received patient awake,verbal,follows command, resting in bed, comfortable.
[2019-04-14] MEDS: Tamsulosin 0.4mg cap ORAL SCH (20:56)
[2019-04-15] VITALS: BP 151/69
--- NOTE | 2019-04-15 00:30 | NUR ---
NURSE NOTES: Wound cleansed,dressing changed.
[2019-04-15] MEDS: Vancomycin 750mg/NS 275ml IVPB SCH ×6 (00:45→17:27)
[2019-04-15 04:00] VITALS: BP 143/67
[2019-04-15] MEDS: Piperacillin/Tazobactam 3.375 GM in NS 110 ML IVPB SCH ×3 (04:50→22:31)
[2019-04-15 05:06] LABS: BASOPHILS % (AUTO) 0.8 % (0.0-2.0); EOSINOPHILS % (AUTO) 1.2 % (0.0-3.0); MEAN CORPUSCULAR VOLUME 88 FL (80-99); MONOCYTES % (AUTO) 6.1 % (1.0-10.0); NEUTROPHILS % (AUTO) 75.8 % (45.0-75.0); PLATELET COUNT 314 K/UL (150-450); RED BLOOD COUNT 3.41 M/UL (4.70-6.10); RED CELL DISTRIBUTION WIDTH 13.7 % (11.6-14.8); WHITE BLOOD COUNT 8.6 K/UL (4.8-10.8)
[2019-04-15 05:24] LABS: ANION GAP 4 mmol/L (5-15); BLOOD UREA NITROGEN 7 mg/dL (7-18); CALCIUM 8.4 MG/DL (8.5-10.1); CARBON DIOXIDE 30 MMOL/L (21-32); CHLORIDE 100 MMOL/L (98-107); CREATININE 0.6 MG/DL (0.55-1.30); POTASSIUM 3.5 MMOL/L (3.5-5.1); SODIUM 134 MMOL/L (136-145)
--- NOTE | 2019-04-15 07:05 | NUR ---
HAND-OFF: Report given to Kaity Hale RN.
--- NOTE | 2019-04-15 07:11 | NUR ---
NURSE NOTES: Patient awake, alert x4; room air, no sign of distress and shortness of breath; no sing of chest pain; IV Right Hand 24G Zosyn running; side rails padded for seizure percussion, side rails up x2, breaks engaged, bed at lowest position, breaks engaged; call light within reach; will keep monitoring.
[2019-04-15 08:00] VITALS: BP 126/71
--- NOTE | 2019-04-15 08:14 | Diagnostic Imaging Report ---
CT PELVIS WITH CONTRAST Indication: Gluteal pain, suspected abscess Technique: Continuous helical transaxial imaging of the pelvis was obtained from the kidneys to the thighs during intravenous contrast administration. Coronal 2-D reformats were also obtained. Study obtained in a Siemens sensation [address] Automatic Exposure Control was utilized. Total Dose length Product (DLP): 669.[address] Dose Index Volume (CTDIvol): 15.47 mGy Comparison: CT abdomen and pelvis dated 09/01/2018 Findings: Hepatobiliary: Visualized liver is unremarkable. The gallbladder is contracted, which may explain gallbladder wall thickening. There is pericholecystic fluid. Genitourinary:: Scattered renal cysts. Exophytic 3.9 x 2.5 cm left lower renal cyst demonstrates peripheral calcification, which appears stable from prior examination. There is an ill-defined cortical hypodensity involving the left lower renal pole (3:10) with adjacent perinephric fat stranding. Bladder is displaced laterally by mass effect of distended rectum but appears unremarkable. Prostate is enlarged. Gastrointestinal:: No evidence of small bowel obstruction. There is severe constipation with a large stool burden of the rectosigmoid colon. There is marked rectal wall thickening with mucosal hyperenhancement and submucosal edema. This appears to have progressed since prior examination Peritoneum:: Trace ascites. No free air to suggest perforation. Vasculature: Moderate aortoiliac atherosclerotic calcification. Bones and soft tissues:: In the right gluteal soft tissue, there is a ill-defined collection with gas bubbles measuring approximately 3 x 6.5 x 5.7 cm with associated adjacent fat stranding. The medial aspect of this collection appears contiguous with a defect in the posterolateral rectal wall (3:91 and 3:94). No evidence of osseous erosion. There are multilevel discogenic degenerative changes of the visualized spine. There is grade 1 retrolisthesis of L5 on S1 and grade 1 anterolisthesis of L4 on L5. IMPRESSION: 1. Interval progression of marked rectal wall thickening and mucosal enhancement with severe stool burden concerning for stercoral colitis. As reported before, underlying mass is not excluded and correlation 2. Right gluteal ill-defined fluid collection as described above, concerning for developing abscess, which may be contiguous with inflamed right lateral rectal wall; fistulization is not excluded. 3. Pericholecystic fluid which may be related to trace abdominal ascites, however if there is continued clinical concern for acute cholecystitis, right upper quadrant ultrasound can be obtained. 4. Decreased enhancement in the left lower renal cortex with associated fat stranding, which may be related to ischemic changes or infiltrative process, but correlation with urinalysis is recommended to exclude acute pyelonephritis. 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 Loo at 1040 on 04/13/2019. The CT scanner at [facility] [place] is accredited by the [employer] and the scans are performed using protocols designed to limit radiation exposure to as low as reasonably achievable to attain images of sufficient resolution adequate for diagnostic evaluation.
[2019-04-15] MEDS: Heparin 5000 units/ml inj SUBQ SCH ×2 (09:00→21:00)
[2019-04-15] MEDS: Losartan 50mg tab ORAL SCH (09:00)
[2019-04-15] MEDS: Benztropine 1mg tab ORAL SCH ×2 (09:00→17:26)
[2019-04-15] MEDS: Docusate 100mg tablet ORAL SCH ×2 (09:00→17:26)
[2019-04-15 12:00] VITALS: BP 140/82
--- NOTE | 2019-04-15 14:46 | General Progress Note ---
Assessment/Plan Assessment/Plan: 1) R buttock abcess, R/O deep infection, ? perirectal abcess 2) Schizophrenia 3) Euvolemic Plan: IV ATB's per ID Might need surgical debridement, awaiting surgical opinion Subjective Allergies: Coded Allergies: No Known Allergies (Unverified , 07/20/15) Subjective No distress, feels better, WBC is down to 8.6 Objective Last 24 Hour Vital Signs Date Time Temp Pulse Resp B/P (MAP) Pulse Ox O2 Delivery O2 Flow Rate FiO2 04/15/19 12:00 98.2 61 19 140/82 (101) 95 04/15/19 09:00 Room Air 04/15/19 09:00 126/71 04/15/19 08:00 97.5 70 18 126/71 (89) 96 04/15/19 04:00 97.8 57 18 143/67 (92) 96 04/15/19 01:38 97.0 04/15/19 00:00 97.0 49 19 151/69 (96) 96 04/14/19 21:00 Room Air 04/14/19 20:00 97.5 52 18 162/77 (105) 97 04/14/19 16:00 98.5 50 20 142/72 (95) 99 Intake and Output 04/14/19 04/15/19 19:00 07:00 Intake Total 1225.833 ml 504.216 ml Output Total 1100 ml Balance 125.833 ml 504.216 ml Intake Oral 960 ml IV Total 265.833 ml 504.216 ml Output Urine Total 1100 ml Laboratory Tests 04/14/19 16:15: Vancomycin Level Trough 8.6 04/15/19 04:52: White Blood Count 8.6, Red Blood Count 3.41L, Hemoglobin 10.0L, Hematocrit 30.0L , Mean Corpuscular Volume 88, Mean Corpuscular Hemoglobin 29.4, Mean Corpuscular Hemoglobin Concent 33.5, Red Cell Distribution Width 13.7, Platelet Count 314, Mean Platelet Volume 4.7L, Neutrophils (%) (Auto) 75.8H, Lymphocytes (%) (Auto) 16.0L, Monocytes (%) (Auto) 6.1, Eosinophils (%) (Auto) 1.2, Basophils (%) (Auto) 0.8, Sodium Level 134L, Potassium Level 3.5, Chloride Level 100, Carbon Dioxide Level 30, Anion Gap 4L, Blood Urea Nitrogen 7, Creatinine 0.6, Estimat Glomerular Filtration Rate > 60, Glucose Level 92, Calcium Level 8.4L Height (Feet): 5 Height (Inches): 4.00 Weight (Pounds): 138 General Appearance: WD/WN, no apparent distress EENT: PERRL/EOMI Neck: supple Cardiovascular: normal rate, regular rhythm Respiratory/Chest: lungs clear Abdomen: normal bowel sounds Leonel Loo MD Apr 15, 2019 14:46
[2019-04-15 15:57] VITALS: BP 125/75
--- NOTE | 2019-04-15 19:05 | Surgery Progress Note ---
Surgery Progress Note Subjective Additional Comments no acute events improving labs okay exam stable Objective Last 24 Hour Vital Signs Date Time Temp Pulse Resp B/P (MAP) Pulse Ox O2 Delivery O2 Flow Rate FiO2 04/15/19 15:57 98.0 69 19 125/75 (92) 95 04/15/19 12:00 98.2 61 19 140/82 (101) 95 04/15/19 09:00 Room Air 04/15/19 09:00 126/71 04/15/19 08:00 97.5 70 18 126/71 (89) 96 04/15/19 04:00 97.8 57 18 143/67 (92) 96 04/15/19 01:38 97.0 04/15/19 00:00 97.0 49 19 151/69 (96) 96 04/14/19 21:00 Room Air 04/14/19 20:00 97.5 52 18 162/77 (105) 97 I&O Intake and Output 04/14/19 04/15/19 19:00 07:00 Intake Total 1225.833 ml 504.216 ml Output Total 1100 ml Balance 125.833 ml 504.216 ml Intake Oral 960 ml IV Total 265.833 ml 504.216 ml Output Urine Total 1100 ml Dressing: saturated Wound: clean Cardiovascular: RSR Respiratory: clear Abdomen: soft, flat, non-tender, present bowel sounds Extremities: no tenderness, no cyanosis Laboratory Tests Test 04/15/19 04:52 White Blood Count 8.6 K/UL (4.8-10.8) Red Blood Count 3.41 M/UL (4.70-6.10) L Hemoglobin 10.0 G/DL (14.2-18.0) L Hematocrit 30.0 % (42.0-52.0) L Mean Corpuscular Volume 88 FL (80-99) Mean Corpuscular Hemoglobin 29.4 PG (27.0-31.0) Mean Corpuscular Hemoglobin Concent 33.5 G/DL (32.0-36.0) Red Cell Distribution Width 13.7 % (11.6-14.8) Platelet Count 314 K/UL (150-450) Mean Platelet Volume 4.7 FL (6.5-10.1) L Neutrophils (%) (Auto) 75.8 % (45.0-75.0) H Lymphocytes (%) (Auto) 16.0 % (20.0-45.0) L Monocytes (%) (Auto) 6.1 % (1.0-10.0) Eosinophils (%) (Auto) 1.2 % (0.0-3.0) Basophils (%) (Auto) 0.8 % (0.0-2.0) Sodium Level 134 MMOL/L (136-145) L Potassium Level 3.5 MMOL/L (3.5-5.1) Chloride Level 100 MMOL/L (98-107) Carbon Dioxide Level 30 MMOL/L (21-32) Anion Gap 4 mmol/L (5-15) L Blood Urea Nitrogen 7 mg/dL (7-18) Creatinine 0.6 MG/DL (0.55-1.30) Estimat Glomerular Filtration Rate > 60 mL/min (>60) Glucose Level 92 MG/DL (74-106) Calcium Level 8.4 MG/DL (8.5-10.1) L Plan Problems: (1) Cellulitis and abscess of buttock Assessment & Plan: This is a 69 m old male with fever, leukocytosis, abscess and cellulitis of the right buttock. Patient unsure of duration and did not know he had this prior. When evaluated the bedside patient had a 1 cm opening with seropurulent drainage and surrounding cellulitis erythema tenderness and induration. No other fluctuant cavities identified. The periwound has erythema and induration and extends medially towards the perirectal area. There is some skin changes in this area as well some related to incontinence and some from the cellulitis. Given spontaneous drainage will hold on acute surgical intervention. Will order CT pelvis to evaluate for possible deep abscess. Recommend IV antibiotics. Okay for diet. Will follow with recommendations. Thank you for allowing for participation patient's care CT reviewed with radiology. phlegmon near rectum and perirectal. no clear defined abscess. constipated no acute surgical intervention planned cont with ABX for now phlegmon may form abscess but seems to be draining already likely has had this for some time 1. Interval progression of marked rectal wall thickening and mucosal enhancement with severe stool burden concerning for stercoral colitis. As reported before, underlying mass is not excluded and correlation 2. Right gluteal ill-defined fluid collection as described above, concerning for developing abscess, which may be contiguous with inflamed right lateral rectal wall; fistulization is not excluded. 3. Pericholecystic fluid which may be related to trace abdominal ascites, however if there is continued clinical concern for acute cholecystitis, right upper quadrant ultrasound can be obtained. 4. Decreased enhancement in the left lower renal cortex with associated fat stranding, which may be related to ischemic changes or infiltrative process, but correlation with urinalysis is recommended to exclude acute pyelonephritis. seemingly likely phlegmon as defined abscess not seen improving on IV abx cont with current care no plan for debridement at this time bowel regimen. okay for diet IV abx AM labs packing and dressing BID to buttock wound will follow with exam and recs thank you Abdiel Durant Apr 15, 2019 19:05
--- NOTE | 2019-04-15 19:06 | Infectious Diseases Prog Note ---
Assessment/Plan Assessment/Plan Full consult dictated: A) 1) right buttock abscess/cellulitis, sepsis, leukocytosis, fevers - wc - mrsa /proteus 2) ? 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 Loo Subjective Constitutional: Denies: fever HEENT: Denies: congestion Respiratory: Denies: shortness of breath Allergies: Coded Allergies: No Known Allergies (Unverified , 07/20/15) Objective Vital Signs Last 24 Hour Vital Signs Date Time Temp Pulse Resp B/P (MAP) Pulse Ox O2 Delivery O2 Flow Rate FiO2 04/15/19 15:57 98.0 69 19 125/75 (92) 95 04/15/19 12:00 98.2 61 19 140/82 (101) 95 04/15/19 09:00 Room Air 04/15/19 09:00 126/71 04/15/19 08:00 97.5 70 18 126/71 (89) 96 04/15/19 04:00 97.8 57 18 143/67 (92) 96 04/15/19 01:38 97.0 04/15/19 00:00 97.0 49 19 151/69 (96) 96 04/14/19 21:00 Room Air 04/14/19 20:00 97.5 52 18 162/77 (105) 97 Height (Feet): 5 Height (Inches): 4.00 Weight (Pounds): 138 General Appearance: no acute distress HEENT: normocephalic, atraumatic, anicteric Respiratory/Chest: lungs clear, normal breath sounds, no respiratory distress Cardiovascular: normal rate, regular rhythm Abdomen: normal bowel sounds, soft, non tender, no organomegaly Laboratory Tests Test 04/15/19 04:52 White Blood Count 8.6 K/UL (4.8-10.8) Red Blood Count 3.41 M/UL (4.70-6.10) L Hemoglobin 10.0 G/DL (14.2-18.0) L Hematocrit 30.0 % (42.0-52.0) L Mean Corpuscular Volume 88 FL (80-99) Mean Corpuscular Hemoglobin 29.4 PG (27.0-31.0) Mean Corpuscular Hemoglobin Concent 33.5 G/DL (32.0-36.0) Red Cell Distribution Width 13.7 % (11.6-14.8) Platelet Count 314 K/UL (150-450) Mean Platelet Volume 4.7 FL (6.5-10.1) L Neutrophils (%) (Auto) 75.8 % (45.0-75.0) H Lymphocytes (%) (Auto) 16.0 % (20.0-45.0) L Monocytes (%) (Auto) 6.1 % (1.0-10.0) Eosinophils (%) (Auto) 1.2 % (0.0-3.0) Basophils (%) (Auto) 0.8 % (0.0-2.0) Sodium Level 134 MMOL/L (136-145) L Potassium Level 3.5 MMOL/L (3.5-5.1) Chloride Level 100 MMOL/L (98-107) Carbon Dioxide Level 30 MMOL/L (21-32) Anion Gap 4 mmol/L (5-15) L Blood Urea Nitrogen 7 mg/dL (7-18) Creatinine 0.6 MG/DL (0.55-1.30) Estimat Glomerular Filtration Rate > 60 mL/min (>60) Glucose Level 92 MG/DL (74-106) Calcium Level 8.4 MG/DL (8.5-10.1) L Current Medications Medications (Trade) Dose Ordered Sig/Nikolay Route PRN Reason Start Time Stop Time Status Last Admin Dose Admin Acetaminophen (Tylenol) 650 mg Q4H PRN ORAL Mild Pain/Temp > 100.5 04/12/19 16:42 05/12/19 16:41 04/15/19 00:46 Al Hydroxide/Mg Hydroxide (Mylanta) 30 ml Q6H PRN ORAL dyspepsia 04/14/19 16:15 05/14/19 16:14 04/15/19 17:26 Benztropine Mesylate (Cogentin) 1 mg BID ORAL 04/12/19 18:00 05/12/19 17:59 04/15/19 17:26 Docusate Sodium (Colace) 100 mg BID ORAL 04/14/19 18:00 05/14/19 17:59 04/15/19 17:26 Gabapentin (Neurontin) 300 mg Q12HR ORAL 04/12/19 21:00 05/12/19 20:59 04/15/19 09:00 Heparin Sodium (Porcine) (Heparin 5000 units/ml) 5,000 units EVERY 12 HOURS SUBQ 04/12/19 21:00 05/12/19 20:59 04/14/19 20:56 Levetiracetam (Keppra) 1,000 mg Q12HR ORAL 04/12/19 21:00 05/12/19 20:59 04/15/19 09:00 Losartan Potassium (Cozaar) 50 mg DAILY ORAL 04/13/19 09:00 05/13/19 08:59 04/15/19 09:00 Magnesium Hydroxide (Mom) 30 ml DAILYPRN PRN ORAL Constipation 04/14/19 16:15 05/14/19 16:14 Piperacillin Sod/ Tazobactam Sod 3.375 gm/Sodium Chloride 110 ml @ 27.5 mls/hr EVERY 8 HOURS IVPB 04/12/19 22:00 04/17/19 21:59 04/15/19 13:13 Risperidone (RisperDAL) 1 mg DAILY ORAL 04/13/19 09:00 05/13/19 08:59 04/15/19 09:00 Risperidone (RisperDAL) 2 mg QHS ORAL 04/12/19 21:00 05/12/19 20:59 04/14/19 20:56 Tamsulosin HCl (Flomax) 0.4 mg BEDTIME ORAL 04/12/19 21:00 05/12/19 20:59 04/14/19 20:56 Vancomycin HCl (Vanco rx to dose) 1 ea DAILY PRN MISC Per rx protocol 04/12/19 16:45 05/12/19 16:44 Vancomycin HCl 750 mg/Sodium Chloride 275 ml @ 183.333 mls/hr Q8HR@0100,0900,1700 IVPB 04/14/19 17:00 04/19/19 16:59 04/15/19 17:27 Kassidy Chino MD Apr 15, 2019 19:06
--- NOTE | 2019-04-15 19:53 | NUR ---
CASE MANAGEMENT: REVIEW SI: RIGHT BUTTOCK CELLULITIS / ABSCESS T 97.5 HR 57 RR 18 BP 143/67 SAT 96% ROOM AIR H/H 10.1/30.0 NA 134 IS: ZOSYN IV Q8HR VANCO IV Q12HR HEPARIN SUBQ Q12HR PT EVAL MED/SURG STATUS DCP: PATIENT IS FROM [facility]
--- NOTE | 2019-04-15 19:55 | NUR ---
HAND-OFF: Report given to BEVERLY Edouard.
--- NOTE | 2019-04-15 19:58 | NUR ---
NURSE NOTES: Received report from BEVERLY Briceno. Patient A&Ox3. On room air, no signs of distress or labored breathing. IV intact, patent, and saline locked. Be din lowest position with call light in reach. Will continue to monitor.
[2019-04-15 20:00] VITALS: BP 150/78
[2019-04-15] MEDS: Tamsulosin 0.4mg cap ORAL SCH (21:00)
[2019-04-16] VITALS: BP 126/69
--- NOTE | 2019-04-16 01:00 | Consultation ---
DATE OF CONSULTATION: 04/15/2019 INFECTIOUS DISEASES CONSULTATION. CONSULTING PHYSICIAN: Kassidy Chino M.D. ATTENDING PHYSICIAN: Leonel Loo M.D. REFERRING PHYSICIAN: Leonel Loo M.D. REASON FOR CONSULTATION: Right buttock abscess, sepsis, fever, leukocytosis, possible coag-negative Staph bacteremia. CHIEF COMPLAINT: The patient's chief complaint coming into the hospital is cellulitis of the right buttock. HISTORY OF PRESENT ILLNESS: This is a 69-year-old male, who is not a very good historian, but is responsive and presents to [facility] with a right buttock abscess and cellulitis, sepsis, fever, leukocytosis. The patient's abscess I believe is draining on its own. He is being followed by Surgery who is following the progress of the cellulitis and abscess of the right buttock. The patient's workup shows that the culture of the right buttock wound, which is draining abscess has MRSA and Proteus and other gram-negative or gram-positive organisms. Blood culture is with so far coag-negative Staph. The patient is colonized with MRSA. The patient's white count initially was 14.3, was febrile, and likely septic. Infectious Disease consultation was requested for antibiotic management. The patient was empirically started on vancomycin and Zosyn. MAR was noted. Orders were noted. Notes were reviewed. Case was discussed with Dr. Loo. Also, imaging was noted. REVIEW OF SYSTEMS: CONSTITUTIONAL: No central line. He has generalized fatigue, but no focal weakness. Alert and responsive. He came in with fevers. Currently, no fevers or chills. No weight loss or night sweats. HEAD AND NECK: No head pain or neck pain. No neck stiffness. CARDIAC: No chest pain or palpitations. GASTROINTESTINAL: No nausea, vomiting, abdominal pain, diarrhea. GENITOURINARY: The patient has no Negron. No dysuria or frequency. PULMONARY: No congestion or shortness of breath. Mild secretions. SKIN: No rash. EXTREMITIES: No extremity pain. He has right buttock pain. NEUROLOGIC: No seizures. PAST MEDICAL HISTORY: The patient has past medical history of schizophrenia, COPD, osteoarthritis, seizure disorder, hyponatremia, pneumonia. He has history of surgery to the left knee and right hand, has history of nicotine dependency. No history of diabetes, hypertension, or heart disease mentioned. No history of cancer. ALLERGIES: No known drug allergies. He has no antibiotic allergies. FAMILY HISTORY: Noncontributory. Negative for exposure to tuberculosis or cancer. SOCIAL HISTORY: Positive for smoking. No alcohol or drug abuse. MEDICATIONS: Upon reviewing the MAR, the patient is on the following medications. He is on docusate, vancomycin, Zosyn, magnesium hydroxide, aluminium hydroxide, Cozaar, risperidone, heparin, Flomax, Keppra, Neurontin, Cogentin, acetaminophen. Outside medications noted and reconciliated. PHYSICAL EXAMINATION: VITAL SIGNS: Temperature 98.0, pulse rate 69, respiratory rate 19, blood pressure 125/75, saturation 95%. The patient's T-max is 101.6. GENERAL: Alert, responsive, in no acute distress. HEAD AND NECK: Oral exam, no thrush. Eye exam, no icterus. Neck is supple. No JVD. Normocephalic. No icterus or thrush. HEART: Regular. No gallop or murmur. No friction rub. ABDOMEN: Soft. Positive bowel sounds. Nontender. No organomegaly. LUNGS: Fairly clear bilaterally. No obvious rhonchi or rales. SKIN: No rash or dermatitis. MUSCULOSKELETAL: No septic arthritis. Leg exam, no cellulitis. His right buttock exam, he has a right buttock abscess, cellulitis, and draining wound. PERIPHERAL VASCULAR: No gangrene. NEUROLOGIC: Intact. Nonfocal. LINE SITES: Without phlebitis. GENITOURINARY: No Negron. No CVA tenderness. No septic arthritis. LABORATORY AND DIAGNOSTIC DATA: White count on admission 14.3, currently white count is 8.6, hemoglobin 10.0. Creatinine is 0.6. LFTs were noted. Cultures, blood cultures with multiple bottles positive, however, 1 bottle so far shows coag-negative Staph and wound culture or draining abscess culture of the right buttock has MRSA and Proteus, and the patient's MRSA screen is positive. IMAGING STUDIES: CT scan of the pelvis showed possible stercoral colitis. It also shows a right gluteal ill-defined fluid collection concerning for developing abscess. Chest x-ray showed no consolidation. ASSESSMENT AND PLAN: 1. The patient has right buttock abscess and cellulitis with so far wound culture or draining culture of abscess has MRSA and Proteus. The patient also has sepsis, leukocytosis, fevers with the right buttock abscess, cellulitis, and infected wound. It is unclear if the patient has coag-negative Staph bacteremia versus contaminant. CT scan was noted and consistent with an abscess. The patient is being followed by Surgery and Surgery note was reviewed. It is felt at this time that it is a phlegmon and is draining at this time from the abscess and no surgical intervention. Continue vancomycin and Zosyn for MRSA and Proteus of right buttock, abscess, cellulitis, infected wound, sepsis, fevers, leukocytosis. Check surveillance blood cultures positive blood cultures with coag-negative Staph. Monitor sepsis status. Surgery to follow up and debridement as needed. Continue vancomycin and Zosyn for now for the right buttock abscess and sepsis. 2. Surgery to follow up and debridement as needed. 3. Schizophrenia. 4. COPD. 5. Osteoarthritis. 6. Seizure disorder. 7. History of hyponatremia. 8. History of pneumonia. 9. No history of diabetes or hypertension. 10. Continue treatment per primary consultants. 11. Social history positive for smoking. 12. Family history noncontributory. 13. MAR was noted. 14. Case discussed with RN. 15. Allergies are negative. 16. Continue treatment per primary consultants. 17. Notes and records were reviewed. Orders were noted. Kassidy Chino M.D. DR: Jeanne JOB#: [id number] CC:
[2019-04-16] MEDS: Vancomycin 750mg/NS 275ml IVPB SCH ×6 (03:52→17:54)
[2019-04-16 04:00] VITALS: BP 162/76
[2019-04-16] MEDS: Piperacillin/Tazobactam 3.375 GM in NS 110 ML IVPB SCH ×3 (06:52→22:09)
--- NOTE | 2019-04-16 07:20 | NUR ---
HAND-OFF: Report given to BEVERLY Briceno.
--- NOTE | 2019-04-16 07:50 | NUR ---
NURSE NOTES: Patient alert x3, confused; keep calling to 2E, instructed to call 4E; call light within reach; on room air, no sign of distress and shortness of breath; no sing of chest pain; IV Right-Hand 24G Zosyn running; urinal within reach; side rails up x2, side rails padded for seizure percussion, breaks engaged, bed at lowest position, bed alarm on; will keep monitoring.
[2019-04-16 08:00] VITALS: BP 134/74
[2019-04-16] MEDS: Losartan 50mg tab ORAL SCH (08:43)
[2019-04-16] MEDS: Heparin 5000 units/ml inj SUBQ SCH ×2 (08:45→21:00)
[2019-04-16] MEDS: Docusate 100mg tablet ORAL SCH ×2 (08:54→17:53)
[2019-04-16] MEDS: Benztropine 1mg tab ORAL SCH ×2 (08:54→17:53)
--- NOTE | 2019-04-16 11:18 | Surgery Progress Note ---
Surgery Progress Note Subjective Additional Comments wound debrided with non excisional gauze debridement at bedside. opening with prior cavity healing packing and dressig applied Objective Last 24 Hour Vital Signs Date Time Temp Pulse Resp B/P (MAP) Pulse Ox O2 Delivery O2 Flow Rate FiO2 04/16/19 09:00 Room Air 04/16/19 08:43 134/74 04/16/19 08:00 95.9 77 20 134/74 (94) 95 04/16/19 04:00 98.2 54 18 162/76 (104) 97 04/16/19 00:00 97.7 75 19 126/69 (88) 97 04/15/19 21:00 Room Air 04/15/19 20:00 98.5 60 18 150/78 (102) 96 04/15/19 15:57 98.0 69 19 125/75 (92) 95 04/15/19 12:00 98.2 61 19 140/82 (101) 95 I&O Intake and Output 04/15/19 04/16/19 18:59 06:59 Intake Total 715.149 ml 423.333 ml Output Total 950 ml Balance 715.149 ml -526.667 ml Intake Oral 240 ml IV Total 715.149 ml 183.333 ml Output Urine Total 950 ml # Voids 5 # Bowel Movements 1 Dressing: saturated Wound: other Drains: other Cardiovascular: RSR Respiratory: clear Abdomen: soft, non-tender, present bowel sounds Extremities: no cyanosis Plan Problems: (1) Cellulitis and abscess of buttock Assessment & Plan: This is a 69 m old male with fever, leukocytosis, abscess and cellulitis of the right buttock. Patient unsure of duration and did not know he had this prior. When evaluated the bedside patient had a 1 cm opening with seropurulent drainage and surrounding cellulitis erythema tenderness and induration. No other fluctuant cavities identified. The periwound has erythema and induration and extends medially towards the perirectal area. There is some skin changes in this area as well some related to incontinence and some from the cellulitis. Given spontaneous drainage will hold on acute surgical intervention. Will order CT pelvis to evaluate for possible deep abscess. Recommend IV antibiotics. Okay for diet. Will follow with recommendations. Thank you for allowing for participation patient's care CT reviewed with radiology. phlegmon near rectum and perirectal. no clear defined abscess. constipated no acute surgical intervention planned cont with ABX for now phlegmon may form abscess but seems to be draining already likely has had this for some time 1. Interval progression of marked rectal wall thickening and mucosal enhancement with severe stool burden concerning for stercoral colitis. As reported before, underlying mass is not excluded and correlation 2. Right gluteal ill-defined fluid collection as described above, concerning for developing abscess, which may be contiguous with inflamed right lateral rectal wall; fistulization is not excluded. 3. Pericholecystic fluid which may be related to trace abdominal ascites, however if there is continued clinical concern for acute cholecystitis, right upper quadrant ultrasound can be obtained. 4. Decreased enhancement in the left lower renal cortex with associated fat stranding, which may be related to ischemic changes or infiltrative process, but correlation with urinalysis is recommended to exclude acute pyelonephritis. seemingly likely phlegmon as defined abscess not seen improving on IV abx cont with current care no plan for debridement at this time bowel regimen. okay for diet IV abx AM labs packing and dressing BID to buttock wound will follow with exam and recs thank you Abdiel Durant Apr 16, 2019 11:18
[2019-04-16 12:00] VITALS: BP 143/74
[2019-04-16 16:00] VITALS: BP 136/79
--- NOTE | 2019-04-16 17:16 | NUR ---
PT Note PT toy completed, treatment initiated. Patient is very motivated with physical therapy. He has leg length discrepancy with the LLE shorter than the RLE by ~ 1 inch. He required extensive assist in mobility. Patient needs PT services to increase his muscle strength and balance to improve his functional mobility and gait. Addendum: 04/16/19 at 1717 by HOLA MARCUS PT Amended: Links added.
--- NOTE | 2019-04-16 18:53 | NUR ---
NURSE NOTES: Wound care provided by MD Durant, primary care assisted MD at the bed side. Patient tolerated well.
--- NOTE | 2019-04-16 19:14 | NUR ---
HAND-OFF: Report given to BEVERLY Edouard.
[2019-04-16 20:00] VITALS: BP 161/85
[2019-04-16] MEDS: Tamsulosin 0.4mg cap ORAL SCH (22:08)
[2019-04-17] VITALS: BP 156/85
[2019-04-17] MEDS: Vancomycin 750mg/NS 275ml IVPB SCH ×2 (01:52)
[2019-04-17 04:00] VITALS: BP 127/66
[2019-04-17] MEDS: Piperacillin/Tazobactam 3.375 GM in NS 110 ML IVPB SCH ×2 (06:46→14:12)
[2019-04-17 08:00] VITALS: BP 139/76
--- NOTE | 2019-04-17 08:01 | NUR ---
NURSE NOTES: Patient received in stable condition, awake in bed. Breathing unlabored on room air, denies pain or SOB at this time. IV site on left hand observed, saline locked. Siderails padded for seizure precaution. Bed locked in low position, call light placed within reach. Will continue to monitor.
--- NOTE | 2019-04-17 08:08 | NUR ---
HAND-OFF: Report given to BEVERLY Stone.
[2019-04-17] MEDS: Benztropine 1mg tab ORAL SCH ×2 (08:43→18:22)
[2019-04-17] MEDS: Docusate 100mg tablet ORAL SCH ×2 (08:43→18:22)
[2019-04-17] MEDS: Losartan 50mg tab ORAL SCH (08:43)
[2019-04-17] MEDS: Heparin 5000 units/ml inj SUBQ SCH ×3 (08:47→21:53)
[2019-04-17 12:00] VITALS: BP 125/75
--- NOTE | 2019-04-17 12:28 | Surgery Progress Note ---
Surgery Progress Note Subjective Symptoms: improved Additional Comments doing well comfortable dressings changed noted incontinence but patient not aware Objective Last 24 Hour Vital Signs Date Time Temp Pulse Resp B/P (MAP) Pulse Ox O2 Delivery O2 Flow Rate FiO2 04/17/19 09:00 Room Air 04/17/19 08:43 139/76 04/17/19 08:00 97.2 72 19 139/76 (97) 94 04/17/19 04:00 98.6 50 20 127/66 (86) 96 04/17/19 00:00 98.5 63 20 156/85 (108) 96 04/16/19 21:00 Room Air 04/16/19 20:00 98.1 57 20 161/85 (110) 97 04/16/19 16:00 98.8 76 18 136/79 (98) 99 I&O Intake and Output 04/16/19 04/17/19 19:00 07:00 Intake Total 659.999 ml 1840 ml Output Total 850 ml Balance 659.999 ml 990 ml Intake Oral 240 ml IV Total 659.999 ml Other 1600 ml Output Urine Total 850 ml # Voids 11 # Bowel Movements 1 Dressing: saturated Wound: clean Cardiovascular: RSR Respiratory: clear Abdomen: soft, non-tender, present bowel sounds Extremities: no edema, no tenderness, no cyanosis Laboratory Tests Test 04/17/19 08:00 Vancomycin Level Trough 22.9 ug/mL (5.0-12.0) H Plan Problems: (1) Cellulitis and abscess of buttock Assessment & Plan: This is a 69 m old male with fever, leukocytosis, abscess and cellulitis of the right buttock. Patient unsure of duration and did not know he had this prior. When evaluated the bedside patient had a 1 cm opening with seropurulent drainage and surrounding cellulitis erythema tenderness and induration. No other fluctuant cavities identified. The periwound has erythema and induration and extends medially towards the perirectal area. There is some skin changes in this area as well some related to incontinence and some from the cellulitis. Given spontaneous drainage will hold on acute surgical intervention. Will order CT pelvis to evaluate for possible deep abscess. Recommend IV antibiotics. Okay for diet. Will follow with recommendations. Thank you for allowing for participation patient's care CT reviewed with radiology. phlegmon near rectum and perirectal. no clear defined abscess. constipated no acute surgical intervention planned cont with ABX for now phlegmon may form abscess but seems to be draining already likely has had this for some time 1. Interval progression of marked rectal wall thickening and mucosal enhancement with severe stool burden concerning for stercoral colitis. As reported before, underlying mass is not excluded and correlation 2. Right gluteal ill-defined fluid collection as described above, concerning for developing abscess, which may be contiguous with inflamed right lateral rectal wall; fistulization is not excluded. 3. Pericholecystic fluid which may be related to trace abdominal ascites, however if there is continued clinical concern for acute cholecystitis, right upper quadrant ultrasound can be obtained. 4. Decreased enhancement in the left lower renal cortex with associated fat stranding, which may be related to ischemic changes or infiltrative process, but correlation with urinalysis is recommended to exclude acute pyelonephritis. seemingly likely phlegmon as defined abscess not seen improving on IV abx cont with current care no plan for debridement at this time bowel regimen. okay for diet IV abx AM labs packing and dressing BID to buttock wound will follow with exam and recs thank you Abdiel Durant Apr 17, 2019 12:28
[2019-04-17] MEDS ORDERED: NS 275ml ONE (15:23)
[2019-04-17] MEDS ORDERED: Tubing IV Secondary IV ONE (15:23)
--- NOTE | 2019-04-17 15:55 | General Progress Note ---
Assessment/Plan Assessment/Plan: 1) R buttock abcess, R/O deep infection, ? perirectal abcess 2) Schizophrenia 3) Euvolemic Plan: IV ATB's per ID No plan for surgical debridement for now Subjective Allergies: Coded Allergies: No Known Allergies (Unverified , 07/20/15) Subjective No distress, feels better, the dressing change per surgery, no c/p or sob Objective Last 24 Hour Vital Signs Date Time Temp Pulse Resp B/P (MAP) Pulse Ox O2 Delivery O2 Flow Rate FiO2 04/17/19 12:00 97.4 67 16 125/75 (92) 94 04/17/19 09:00 Room Air 04/17/19 08:43 139/76 04/17/19 08:00 97.2 72 19 139/76 (97) 94 04/17/19 04:00 98.6 50 20 127/66 (86) 96 04/17/19 00:00 98.5 63 20 156/85 (108) 96 04/16/19 21:00 Room Air 04/16/19 20:00 98.1 57 20 161/85 (110) 97 04/16/19 16:00 98.8 76 18 136/79 (98) 99 Intake and Output 04/16/19 04/17/19 18:59 06:59 Intake Total 659.999 ml 1840 ml Output Total 850 ml Balance 659.999 ml 990 ml Intake Oral 240 ml IV Total 659.999 ml Other 1600 ml Output Urine Total 850 ml # Voids 11 # Bowel Movements 1 Laboratory Tests 04/17/19 08:00: Vancomycin Level Trough 22.9H Height (Feet): 5 Height (Inches): 4.00 Weight (Pounds): 138 General Appearance: WD/WN, no apparent distress EENT: PERRL/EOMI Neck: non-tender, normal alignment Cardiovascular: normal rate, regular rhythm Respiratory/Chest: chest wall non-tender, lungs clear Abdomen: normal bowel sounds, non tender, soft 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
[2019-04-17 16:00] VITALS: BP 156/88
--- NOTE | 2019-04-17 17:08 | Infectious Diseases Prog Note ---
Assessment/Plan Assessment/Plan ASSESSMENT AND PLAN: 1. mrsa/e.coli/proteus/streptococcus right buttock abscess/cellulitis, ? 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 Surgery to follow up and debridement as needed. 3. Schizophrenia. 4. COPD. 5. Osteoarthritis. 6. Seizure disorder. 7. History of hyponatremia. 8. History of pneumonia. 9. No history of diabetes or hypertension. 10. Continue treatment per primary consultants. 11. Social history positive for smoking. 12. Family history noncontributory. 13. MAR was noted. 14. Case discussed with RN. 15. Allergies are negative. 16. Continue treatment per primary consultants. 17. Notes and records were reviewed. Orders were noted. Subjective Constitutional: Reports: fatigue, other - no focal weakness ; Denies: fever HEENT: Denies: congestion Respiratory: Denies: shortness of breath Cardiovascular: Denies: chest pain Gastrointestinal/Abdominal: Denies: nausea, vomiting, diarrhea Genitourinary: Reports: other - no lópez; Denies: dysuria, hematuria, frequency Neurologic: Denies: headache Psychiatric: Denies: depression Skin: Denies: rash Endocrine: Denies: feels warm Hematologic: Denies: bleeding Musculoskeletal: Denies: pain Allergies: Coded Allergies: No Known Allergies (Unverified , 07/20/15) Objective Vital Signs Last 24 Hour Vital Signs Date Time Temp Pulse Resp B/P (MAP) Pulse Ox O2 Delivery O2 Flow Rate FiO2 04/17/19 12:00 97.4 67 16 125/75 (92) 94 04/17/19 09:00 Room Air 04/17/19 08:43 139/76 04/17/19 08:00 97.2 72 19 139/76 (97) 94 04/17/19 04:00 98.6 50 20 127/66 (86) 96 04/17/19 00:00 98.5 63 20 156/85 (108) 96 04/16/19 21:00 Room Air 04/16/19 20:00 98.1 57 20 161/85 (110) 97 Height (Feet): 5 Height (Inches): 4.00 Weight (Pounds): 138 General Appearance: no acute distress HEENT: normocephalic, atraumatic, anicteric, mucous membranes moist Respiratory/Chest: lungs clear, normal breath sounds, no respiratory distress, no accessory muscle use Cardiovascular: normal rate, regular rhythm, no gallop/murmur Abdomen: normal bowel sounds, soft, non tender, no organomegaly, non distended Genitourinary: other - no lópez Extremities: no cyanosis Skin: no rash 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 Interval progression of marked rectal wall thickening and mucosal enhancement with severe stool burden concerning for stercoral colitis. As reported before, underlying mass is not excluded and correlation 2. Right gluteal ill-defined fluid collection as described above, concerning for developing abscess, which may be contiguous with inflamed right lateral rectal wall; fistulization is not excluded. 3. Pericholecystic fluid which may be related to trace abdominal ascites, however if there is continued clinical concern for acute cholecystitis, right upper quadrant ultrasound can be obtained. 4. Decreased enhancement in the left lower renal cortex with associated fat stranding, which may be related to ischemic changes or infiltrative process, but correlation with urinalysis is recommended to exclude acute pyelonephritis. Chest x-ray - no consolidation, report noted Microbiology Date/Time Source Procedure Growth Status 04/12/19 14:43 Blood Blood Culture - Final Staphylococcus Sp Coag Neg Complete 04/12/19 14:00 Nasal Nares MRSA Culture - Final Staphylococcus Aureus - Mrsa Complete 04/12/19 14:30 Buttock Right Gram Stain - Final Complete 04/12/19 14:30 Wound Culture - Final Staphylococcus Aureus - Mrsa Proteus Mirabilis Escherichia Coli Strep Agalactiae Hemolytic Complete Labs Test 04/15/19 04:52 04/17/19 08:00 White Blood Count 8.6 K/UL (4.8-10.8) Red Blood Count 3.41 M/UL (4.70-6.10) Hemoglobin 10.0 G/DL (14.2-18.0) Hematocrit 30.0 % (42.0-52.0) Mean Corpuscular Volume 88 FL (80-99) Mean Corpuscular Hemoglobin 29.4 PG (27.0-31.0) Mean Corpuscular Hemoglobin Concent 33.5 G/DL (32.0-36.0) Red Cell Distribution Width 13.7 % (11.6-14.8) Platelet Count 314 K/UL (150-450) Mean Platelet Volume 4.7 FL (6.5-10.1) Neutrophils (%) (Auto) 75.8 % (45.0-75.0) Lymphocytes (%) (Auto) 16.0 % (20.0-45.0) Monocytes (%) (Auto) 6.1 % (1.0-10.0) Eosinophils (%) (Auto) 1.2 % (0.0-3.0) Basophils (%) (Auto) 0.8 % (0.0-2.0) Sodium Level 134 MMOL/L (136-145) Potassium Level 3.5 MMOL/L (3.5-5.1) Chloride Level 100 MMOL/L (98-107) Carbon Dioxide Level 30 MMOL/L (21-32) Anion Gap 4 mmol/L (5-15) Blood Urea Nitrogen 7 mg/dL (7-18) Creatinine 0.6 MG/DL (0.55-1.30) Estimat Glomerular Filtration Rate > 60 mL/min (>60) Glucose Level 92 MG/DL (74-106) Calcium Level 8.4 MG/DL (8.5-10.1) Vancomycin Level Trough 22.9 ug/mL (5.0-12.0) Laboratory Tests Test 04/17/19 08:00 Vancomycin Level Trough 22.9 ug/mL (5.0-12.0) H Current Medications Medications (Trade) Dose Ordered Sig/Nikolay Route PRN Reason Start Time Stop Time Status Last Admin Dose Admin Acetaminophen (Tylenol) 650 mg Q4H PRN ORAL Mild Pain/Temp > 100.5 04/12/19 16:42 05/12/19 16:41 04/15/19 00:46 Al Hydroxide/Mg Hydroxide (Mylanta) 30 ml Q6H PRN ORAL dyspepsia 04/14/19 16:15 05/14/19 16:14 04/17/19 09:04 Benztropine Mesylate (Cogentin) 1 mg BID ORAL 04/12/19 18:00 05/12/19 17:59 04/17/19 08:43 Docusate Sodium (Colace) 100 mg BID ORAL 04/14/19 18:00 05/14/19 17:59 04/17/19 08:43 Gabapentin (Neurontin) 300 mg Q12HR ORAL 04/12/19 21:00 05/12/19 20:59 04/17/19 08:43 Heparin Sodium (Porcine) (Heparin 5000 units/ml) 5,000 units EVERY 12 HOURS SUBQ 04/12/19 21:00 05/12/19 20:59 04/17/19 08:47 Levetiracetam (Keppra) 1,000 mg Q12HR ORAL 04/12/19 21:00 05/12/19 20:59 04/17/19 08:43 Losartan Potassium (Cozaar) 50 mg DAILY ORAL 04/13/19 09:00 05/13/19 08:59 04/17/19 08:43 Magnesium Hydroxide (Mom) 30 ml DAILYPRN PRN ORAL Constipation 04/14/19 16:15 05/14/19 16:14 Piperacillin Sod/ Tazobactam Sod 3.375 gm/Sodium Chloride 110 ml @ 27.5 mls/hr EVERY 8 HOURS IVPB 04/15/19 22:00 04/20/19 21:59 04/17/19 14:12 Risperidone (RisperDAL) 1 mg DAILY ORAL 04/13/19 09:00 05/13/19 08:59 04/17/19 08:43 Risperidone (RisperDAL) 2 mg QHS ORAL 04/12/19 21:00 05/12/19 20:59 04/16/19 22:08 Tamsulosin HCl (Flomax) 0.4 mg BEDTIME ORAL 04/12/19 21:00 05/12/19 20:59 04/16/19 22:08 Temazepam (Restoril) 15 mg HSPRN PRN ORAL Insomnia 04/16/19 20:30 04/23/19 20:29 04/16/19 22:08 Vancomycin HCl (Vanco rx to dose) 1 ea DAILY PRN MISC Per rx protocol 04/12/19 16:45 05/12/19 16:44 Vancomycin HCl 1 gm/Dextrose 275 ml @ 183.708 mls/hr Q12HR@0600,1800 IVPB 04/17/19 18:00 04/22/19 17:59 Kassidy Chino MD Apr 17, 2019 17:08
[2019-04-17] MEDS ORDERED: Vancomycin 1gm/D5W 275ml IVPB SCH ×2 (18:00)
--- NOTE | 2019-04-17 19:23 | NUR ---
HAND-OFF: Report given to Ayaka PAUL.
[2019-04-17 20:00] VITALS: BP 154/80
--- NOTE | 2019-04-17 20:55 | NUR ---
NURSE NOTES: PATIENT IN BED, AWAKE, MAKE NEEDS KNOWN. NO IV ACCESS. NO S/S DISTRESS NOTED. NO COMPLAINTS OF PAIN AT THIS TIME. BED IN LOWEST POSITION, CALL LIGHT WITHIN REACH, EBD ALARM ON. WILL CONTINUE TO MONITOR.
[2019-04-17] MEDS ORDERED: cefTRIAXone 1 GM in D5W 50 ML IVPB SCH (21:00)
[2019-04-17] MEDS: Bactrim-DS 1 tab ORAL SCH (21:51)
[2019-04-17] MEDS: Cephalexin 500mg cap ORAL SCH (21:51)
[2019-04-17] MEDS: Tamsulosin 0.4mg cap ORAL SCH (21:51)
[2019-04-18 00:19] VITALS: BP 135/104
--- NOTE | 2019-04-18 04:32 | NUR ---
NURSE NOTES: CHANGED RIGHT BUTTOCK DRESSING, PATIENT TOLERATED.
[2019-04-18 04:59] VITALS: BP 138/84
--- NOTE | 2019-04-18 07:17 | NUR ---
HAND-OFF: Report given to ERVIN MORELOS RN.
--- NOTE | 2019-04-18 07:53 | NUR ---
NURSE NOTES: Received report from BEVERLY Marley. pt in bed, awake, talkative, no complaints of pain, no apparent distress noted, discussed plan of care, bed in lowest position, call light within reach.
[2019-04-18 08:00] VITALS: BP 133/80
[2019-04-18] MEDS: Bactrim-DS 1 tab ORAL SCH ×2 (08:12→21:24)
[2019-04-18] MEDS: Heparin 5000 units/ml inj SUBQ SCH ×2 (08:13→20:08)
[2019-04-18] MEDS: Docusate 100mg tablet ORAL SCH ×2 (08:13→17:12)
[2019-04-18] MEDS: Cephalexin 500mg cap ORAL SCH ×4 (08:13→21:23)
[2019-04-18] MEDS: Benztropine 1mg tab ORAL SCH ×2 (08:14→17:12)
[2019-04-18] MEDS: Losartan 50mg tab ORAL SCH (08:15)
--- NOTE | 2019-04-18 08:16 | NUR ---
MOTH EXTERMINATOR Co-Signature Notes: Reviewed patient's chart. Reviewed and approved MOTH EXTERMINATOR notes Addendum: 04/18/19 at 0817 by EDWARDO NGUYEN PTMG Amended: Links added.
[2019-04-18 10:21] LABS: BASOPHILS % (AUTO) 0.6 % (0.0-2.0); EOSINOPHILS % (AUTO) 0.3 % (0.0-3.0); HEMATOCRIT 33.6 % (42.0-52.0); HEMOGLOBIN 11.1 G/DL (14.2-18.0); LYMPHOCYTES % (AUTO) 12.5 % (20.0-45.0); MEAN CORPUSCULAR VOLUME 88 FL (80-99); MONOCYTES % (AUTO) 4.9 % (1.0-10.0); NEUTROPHILS % (AUTO) 81.7 % (45.0-75.0); PLATELET COUNT 421 K/UL (150-450); RED CELL DISTRIBUTION WIDTH 14.1 % (11.6-14.8); WHITE BLOOD COUNT 10.5 K/UL (4.8-10.8)
[2019-04-18 10:34] LABS: ANION GAP 6 mmol/L (5-15); BLOOD UREA NITROGEN 14 mg/dL (7-18); CARBON DIOXIDE 27 MMOL/L (21-32); CHLORIDE 96 MMOL/L (98-107); CREATININE 0.6 MG/DL (0.55-1.30); POTASSIUM 4.5 MMOL/L (3.5-5.1); SODIUM 129 MMOL/L (136-145)
[2019-04-18 12:00] VITALS: BP 132/80
--- NOTE | 2019-04-18 12:07 | Surgery Progress Note ---
Surgery Progress Note Subjective Symptoms: improved, pain absent, tolerating diet, passing flatus, BM Objective Last 24 Hour Vital Signs Date Time Temp Pulse Resp B/P (MAP) Pulse Ox O2 Delivery O2 Flow Rate FiO2 04/18/19 09:00 Room Air 04/18/19 08:15 133/80 04/18/19 08:00 98.0 98 20 133/80 (97) 94 04/18/19 04:59 97.5 70 18 138/84 (102) 97 04/18/19 00:19 99.1 69 18 135/104 (114) 98 04/17/19 23:44 Room Air 04/17/19 20:00 97.6 71 18 154/80 (104) 99 04/17/19 16:00 97.7 72 17 156/88 (110) 96 I&O Intake and Output 04/17/19 04/18/19 19:00 07:00 Intake Total 2000 ml 240 ml Output Total 1800 ml Balance 200 ml 240 ml Intake Oral 2000 ml 240 ml Output Urine Total 1800 ml # Voids 5 Dressing: saturated Wound: clean Cardiovascular: RSR Respiratory: clear Abdomen: soft, flat, non-tender, present bowel sounds Extremities: no edema, no tenderness, no cyanosis Laboratory Tests Test 04/18/19 10:05 White Blood Count 10.5 K/UL (4.8-10.8) Red Blood Count 3.80 M/UL (4.70-6.10) L Hemoglobin 11.1 G/DL (14.2-18.0) L Hematocrit 33.6 % (42.0-52.0) L Mean Corpuscular Volume 88 FL (80-99) Mean Corpuscular Hemoglobin 29.3 PG (27.0-31.0) Mean Corpuscular Hemoglobin Concent 33.2 G/DL (32.0-36.0) Red Cell Distribution Width 14.1 % (11.6-14.8) Platelet Count 421 K/UL (150-450) Mean Platelet Volume 4.4 FL (6.5-10.1) L Neutrophils (%) (Auto) 81.7 % (45.0-75.0) H Lymphocytes (%) (Auto) 12.5 % (20.0-45.0) L Monocytes (%) (Auto) 4.9 % (1.0-10.0) Eosinophils (%) (Auto) 0.3 % (0.0-3.0) Basophils (%) (Auto) 0.6 % (0.0-2.0) Sodium Level 129 MMOL/L (136-145) L Potassium Level 4.5 MMOL/L (3.5-5.1) Chloride Level 96 MMOL/L (98-107) L Carbon Dioxide Level 27 MMOL/L (21-32) Anion Gap 6 mmol/L (5-15) Blood Urea Nitrogen 14 mg/dL (7-18) Creatinine 0.6 MG/DL (0.55-1.30) Estimat Glomerular Filtration Rate > 60 mL/min (>60) Glucose Level 94 MG/DL (74-106) Calcium Level 9.0 MG/DL (8.5-10.1) Plan Problems: (1) Cellulitis and abscess of buttock Assessment & Plan: This is a 69 m old male with fever, leukocytosis, abscess and cellulitis of the right buttock. Patient unsure of duration and did not know he had this prior. When evaluated the bedside patient had a 1 cm opening with seropurulent drainage and surrounding cellulitis erythema tenderness and induration. No other fluctuant cavities identified. The periwound has erythema and induration and extends medially towards the perirectal area. There is some skin changes in this area as well some related to incontinence and some from the cellulitis. Given spontaneous drainage will hold on acute surgical intervention. Will order CT pelvis to evaluate for possible deep abscess. Recommend IV antibiotics. Okay for diet. Will follow with recommendations. Thank you for allowing for participation patient's care CT reviewed with radiology. phlegmon near rectum and perirectal. no clear defined abscess. constipated no acute surgical intervention planned cont with ABX for now phlegmon may form abscess but seems to be draining already likely has had this for some time 1. Interval progression of marked rectal wall thickening and mucosal enhancement with severe stool burden concerning for stercoral colitis. As reported before, underlying mass is not excluded and correlation 2. Right gluteal ill-defined fluid collection as described above, concerning for developing abscess, which may be contiguous with inflamed right lateral rectal wall; fistulization is not excluded. 3. Pericholecystic fluid which may be related to trace abdominal ascites, however if there is continued clinical concern for acute cholecystitis, right upper quadrant ultrasound can be obtained. 4. Decreased enhancement in the left lower renal cortex with associated fat stranding, which may be related to ischemic changes or infiltrative process, but correlation with urinalysis is recommended to exclude acute pyelonephritis. seemingly likely phlegmon as defined abscess not seen improving on IV abx cont with current care no plan for debridement at this time discharge planning from surgical standpoint cont with bid packing and dressing and prn until healed okay for diet IV abx AM labs packing and dressing BID to buttock wound will follow with exam and recs thank you Abdiel Durant Apr 18, 2019 12:07
--- NOTE | 2019-04-18 12:14 | NUR ---
NURSE NOTES: Wound care done, cleansed pt with soap and water, pat dry, packed with dry gauze, applied new optifoam
[2019-04-18 16:00] VITALS: BP 141/85
--- NOTE | 2019-04-18 16:53 | CDS Physician Query ---
Clarification is required for compliance, coding accuracy, and to reflect severity of illness for this patient. Dear Dr. Leonel Loo Date: 04/18/2019 CDS: Jessica Beckham Clinical Documentation states: 04/14 ID note: The patient has right buttock abscess and cellulitis with so far wound culture or draining culture of abscess has MRSA and Proteus. The patient also has sepsis, leukocytosis, fevers with the right buttock abscess, cellulitis, and infected wound. Vitals/labs on admission: Temp 99.0, HR 80, RR 25, WBC 14.3 Treatment: IV vancomycin, ceftriaxone A diagnosis of Sepsis was made in the medical record on 04/14 (admission day 04/12) on the ID note. Upon review, it is difficult to determine whether this diagnosis has been ruled in, ruled out,or is still being worked up. Please indicate below the status of the aforementioned diagnosis. [] Treated and resolve [] Presumed and treated [] Currently under treatment [] Still being worked-up [] Ruled out Present on Admission: [] Yes [] No [] Clinically Undetermined Physician signature Date Please also document in your Progress Notes and/or Discharge Summary and indicate if the condition was present on admission. MTDD
--- NOTE | 2019-04-18 18:24 | NUR ---
NURSE NOTES: RN called Dr. Loo regarding Na level 129. Dr. Loo stated "That is Dr. Carpenter's pt, he is back so you can call him." Addendum: 04/18/19 at 1828 by ERVIN MORELOS RN NURSE NOTES: Notified Dr. Carpenter, Dr. Carpenter ordered 800cc PO fluid restriction for 24 hours
[2019-04-18] MEDS: Sennosides 8.6mg tab ORAL SCH (19:00)
--- NOTE | 2019-04-18 19:01 | General Progress Note ---
Assessment/Plan Problem List: (1) Hyponatremia ICD Codes: E87.1 - Hypo-osmolality and hyponatremia SNOMED: 19069214 (2) Epilepsy ICD Codes: G40.909 - Epilepsy, unspecified, not intractable, without status epilepticus SNOMED: 33463416 (3) COPD (chronic obstructive pulmonary disease) ICD Codes: J44.9 - Chronic obstructive pulmonary disease, unspecified SNOMED: 81580104 (4) Cellulitis and abscess of buttock ICD Codes: L02.31 - Cutaneous abscess of buttock; L03.317 - Cellulitis of buttock SNOMED: 927332919 (5) BPH (benign prostatic hyperplasia) ICD Codes: N40.0 - Benign prostatic hyperplasia without lower urinary tract symptoms SNOMED: 137783836 Assessment/Plan: wound care, continue antibiotics, may need ecf Subjective Constitutional: Reports: weakness HEENT: Reports: no symptoms Cardiovascular: Reports: no symptoms Respiratory: Reports: cough Gastrointestinal/Abdominal: Reports: no symptoms Genitourinary: Reports: incontinence Neurologic/Psychiatric: Reports: pre-existing deficit Endocrine: Reports: no symptoms Hematologic/Lymphatic: Reports: no symptoms Allergies: Coded Allergies: No Known Allergies (Unverified , 07/20/15) Objective Last 24 Hour Vital Signs Date Time Temp Pulse Resp B/P (MAP) Pulse Ox O2 Delivery O2 Flow Rate FiO2 04/18/19 16:00 98.3 83 20 141/85 (103) 96 04/18/19 12:00 97.6 82 20 132/80 (97) 94 04/18/19 09:00 Room Air 04/18/19 08:15 133/80 04/18/19 08:00 98.0 98 20 133/80 (97) 94 04/18/19 04:59 97.5 70 18 138/84 (102) 97 04/18/19 00:19 99.1 69 18 135/104 (114) 98 04/17/19 23:44 Room Air 04/17/19 20:00 97.6 71 18 154/80 (104) 99 Intake and Output 04/17/19 04/18/19 18:59 06:59 Intake Total 2000 ml 240 ml Output Total 1800 ml Balance 200 ml 240 ml Intake Oral 2000 ml 240 ml Output Urine Total 1800 ml # Voids 5 Laboratory Tests 04/18/19 10:05: White Blood Count 10.5, Red Blood Count 3.80L, Hemoglobin 11.1L, Hematocrit 33.6L, Mean Corpuscular Volume 88, Mean Corpuscular Hemoglobin 29.3, Mean Corpuscular Hemoglobin Concent 33.2, Red Cell Distribution Width 14.1, Platelet Count 421, Mean Platelet Volume 4.4L, Neutrophils (%) (Auto) 81.7H, Lymphocytes (%) (Auto) 12.5L, Monocytes (%) (Auto) 4.9, Eosinophils (%) (Auto) 0.3, Basophils (%) (Auto) 0.6, Sodium Level 129L, Potassium Level 4.5, Chloride Level 96L, Carbon Dioxide Level 27, Anion Gap 6, Blood Urea Nitrogen 14, Creatinine 0.6, Estimat Glomerular Filtration Rate > 60, Glucose Level 94, Calcium Level 9.0 Height (Feet): 5 Height (Inches): 4.00 Weight (Pounds): 138 General Appearance: thin EENT: normal ENT inspection Neck: normal alignment Cardiovascular: normal rate Respiratory/Chest: lungs clear Abdomen: non tender, soft Extremities: other - contractures Edema: no edema noted Arm (L), no edema noted Arm (R), no edema noted Leg (L), no edema noted Leg (R), no edema noted Pedal (L), no edema noted Pedal (R), no edema noted Generalized Skin: other - open wound buttock Liam Carpenter MD Apr 18, 2019 19:01
--- NOTE | 2019-04-18 19:22 | NUR ---
NURSE NOTES: Received a report from BEVERLY Walter. Pt is in stable condition. AAOX3. Able to make needs known. On room air. No c/o pain/discomfort. No IV access- MD aware. Bed in lowest position. Bed alarm is on. Call light within reach. Will continue to monitor.
--- NOTE | 2019-04-18 19:30 | NUR ---
HAND-OFF: Report given to BEVERLY Sullivan.
[2019-04-18 20:00] VITALS: BP 135/71
--- NOTE | 2019-04-18 20:31 | NUR ---
CASE MANAGEMENT: REVIEW SI: RIGHT BUTTOCK CELLULITIS / ABSCESS T 97.5 HR 70 RR 18 BP 138/84 SAT 94% ROOM AIR H/H 11.1/33.6 NA 129 IS: BACTRIM DS PO Q12HR KEFLEX PO QID HEPARIN SUBQ Q12HR FLUID RESTRICTION MED/SURG STATUS DCP: PATIENT IS FROM [facility]
[2019-04-18] MEDS: Tamsulosin 0.4mg cap ORAL SCH (21:00)
[2019-04-19] VITALS: BP 115/75
[2019-04-19 04:00] VITALS: BP 107/70
--- NOTE | 2019-04-19 07:10 | NUR ---
HAND-OFF: Report given to BEVERLY Turner.
--- NOTE | 2019-04-19 07:54 | NUR ---
NURSE NOTES: pt in bed with no sob nor in any form of distress noted. breathing regular and unlabored. denies pain at this time. bed in lowest position. call light within reach at all time. will continue to monitor
[2019-04-19 08:00] VITALS: BP 110/73
[2019-04-19] MEDS: Bactrim-DS 1 tab ORAL SCH ×2 (08:20→21:06)
[2019-04-19] MEDS: Benztropine 1mg tab ORAL SCH ×3 (08:20→17:03)
[2019-04-19] MEDS: Cephalexin 500mg cap ORAL SCH ×4 (08:21→21:06)
[2019-04-19] MEDS: Sennosides 8.6mg tab ORAL SCH (08:22)
[2019-04-19] MEDS: Losartan 50mg tab ORAL SCH (08:23)
[2019-04-19] MEDS: Docusate 100mg tablet ORAL SCH ×2 (08:23→17:03)
[2019-04-19] MEDS: Heparin 5000 units/ml inj SUBQ SCH ×2 (08:23→20:56)
[2019-04-19 12:00] VITALS: BP 118/70
--- NOTE | 2019-04-19 13:52 | NUR ---
NURSE NOTES: pt was referred to [facility] in [place] [facility]. All discharge report given to the nurse Burciaga ([phone]) and verbalized understanding. pt is waiting to be seen by Dr. Carpenter around 5-6pm today and will be discharged by ambulance on will call.
--- NOTE | 2019-04-19 14:13 | NUR ---
RD ASSESSMENT & RECOMMENDATIONS SEE CARE ACTIVITY FOR COMPLETE ASSESSMENT DAILY ESTIMATED NEEDS: Needs based on Wound/ 64.5kg 25-30 kcals/kg 9229-1507 total kcals 1.25-1.5 g protein/kg 65-97 g total protein 25-30 mL/kg 7925-0709 total fluid mLs NUTRITION DIAGNOSIS: Increased kcal/prot intake needs R/T wound healing as evidenced by pt admitted w/ 1 cm opening with seropurulent drainage and surrounding cellulitis erythema tenderness and induration at right buttock. CURRENT DIET: OSCAR, mech soft fine chop PO DIET RECOMMENDATIONS: Continue OSCAR/ texture as tolerated ADDITIONAL RECOMMENDATIONS: 1) Obtain a calibrated bed scale wt 2) Wound healing: add MVI x 1, Vit C 500mg QD : add ZnSO4 220mg QD x 10 days : Cholo 1pkt BID added to ray 3) Monitor PO intake closely . .
--- NOTE | 2019-04-19 14:50 | NUR ---
DISCHARGE PLANNING DISCHARGE ORDER NOTED Patient has been accepted to; [facility] [address] [place] [address] Bed:35-B Skilled [phone] for Nurse to Nurse report [facility] ETA for transportation: Will-Call
--- NOTE | 2019-04-19 15:01 | Infectious Diseases Prog Note ---
Assessment/Plan Assessment/Plan ASSESSMENT AND PLAN: 1. mrsa/e.coli/proteus/streptococcus right buttock abscess/cellulitis, ? 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 Surgery to follow up and debridement as needed. 3. Schizophrenia. 4. COPD. 5. Osteoarthritis. 6. Seizure disorder. 7. History of hyponatremia. 8. History of pneumonia. 9. No history of diabetes or hypertension. 10. Continue treatment per primary consultants. 11. Social history positive for smoking. 12. Family history noncontributory. 13. MAR was noted. 14. Case discussed with RN. 15. Allergies are negative. 16. Continue treatment per primary consultants. 17. Notes and records were reviewed. Orders were noted. Subjective Constitutional: Reports: other - more alert ; Denies: fever HEENT: Denies: congestion Respiratory: Denies: shortness of breath Cardiovascular: Denies: chest pain Gastrointestinal/Abdominal: Denies: nausea, vomiting, diarrhea Genitourinary: Reports: other - no lópez ; Denies: dysuria, hematuria Neurologic: Denies: headache Psychiatric: Denies: depression Skin: Denies: rash Hematologic: Denies: bleeding Musculoskeletal: Denies: pain Allergies: Coded Allergies: No Known Allergies (Unverified , 07/20/15) Objective Vital Signs Last 24 Hour Vital Signs Date Time Temp Pulse Resp B/P (MAP) Pulse Ox O2 Delivery O2 Flow Rate FiO2 04/19/19 12:00 97.6 81 19 118/70 (86) 97 04/19/19 09:55 Room Air 04/19/19 08:23 110/73 04/19/19 08:00 97.3 77 19 110/73 (85) 96 04/19/19 04:00 97.0 80 20 107/70 (82) 95 04/19/19 00:00 99.3 82 20 115/75 (88) 95 04/18/19 21:00 Room Air 04/18/19 20:00 99.5 71 20 135/71 (92) 95 04/18/19 16:00 98.3 83 20 141/85 (103) 96 Height (Feet): 5 Height (Inches): 4.00 Weight (Pounds): 138 General Appearance: no acute distress HEENT: normocephalic, atraumatic, anicteric, mucous membranes moist Respiratory/Chest: lungs clear, normal breath sounds, no respiratory distress, no accessory muscle use Cardiovascular: normal rate, regular rhythm, no gallop/murmur Abdomen: normal bowel sounds, soft, non tender, no organomegaly, non distended Genitourinary: other Extremities: no cyanosis Skin: no rash Neurologic/Psychiatric: manager web application II-XII grossly normal, alert, responsive Lymphatic: no neck adenopathy Musculoskeletal: no effusion Objective CT scan pelvis: IMPRESSION: 1. Interval progression of marked rectal wall thickening and mucosal enhancement with severe stool burden concerning for stercoral colitis. As reported before, underlying mass is not excluded and correlation 2. Right gluteal ill-defined fluid collection as described above, concerning for developing abscess, which may be contiguous with inflamed right lateral rectal wall; fistulization is not excluded. 3. Pericholecystic fluid which may be related to trace abdominal ascites, however if there is continued clinical concern for acute cholecystitis, right upper quadrant ultrasound can be obtained. 4. Decreased enhancement in the left lower renal cortex with associated fat stranding, which may be related to ischemic changes or infiltrative process, but correlation with urinalysis is recommended to exclude acute pyelonephritis. Chest x-ray - no consolidation, report noted Microbiology Date/Time Source Procedure Growth Status 04/12/19 14:43 Blood Blood Culture - Final Staphylococcus Sp Coag Neg Complete 04/12/19 14:00 Nasal Nares MRSA Culture - Final Staphylococcus Aureus - Mrsa Complete 04/12/19 14:30 Buttock Right Gram Stain - Final Complete 04/12/19 14:30 Wound Culture - Final Staphylococcus Aureus - Mrsa Proteus Mirabilis Escherichia Coli Strep Agalactiae Hemolytic Complete Labs Test 04/17/19 08:00 04/18/19 10:05 Vancomycin Level Trough 22.9 ug/mL (5.0-12.0) White Blood Count 10.5 K/UL (4.8-10.8) Red Blood Count 3.80 M/UL (4.70-6.10) Hemoglobin 11.1 G/DL (14.2-18.0) Hematocrit 33.6 % (42.0-52.0) Mean Corpuscular Volume 88 FL (80-99) Mean Corpuscular Hemoglobin 29.3 PG (27.0-31.0) Mean Corpuscular Hemoglobin Concent 33.2 G/DL (32.0-36.0) Red Cell Distribution Width 14.1 % (11.6-14.8) Platelet Count 421 K/UL (150-450) Mean Platelet Volume 4.4 FL (6.5-10.1) Neutrophils (%) (Auto) 81.7 % (45.0-75.0) Lymphocytes (%) (Auto) 12.5 % (20.0-45.0) Monocytes (%) (Auto) 4.9 % (1.0-10.0) Eosinophils (%) (Auto) 0.3 % (0.0-3.0) Basophils (%) (Auto) 0.6 % (0.0-2.0) Sodium Level 129 MMOL/L (136-145) Potassium Level 4.5 MMOL/L (3.5-5.1) Chloride Level 96 MMOL/L (98-107) Carbon Dioxide Level 27 MMOL/L (21-32) Anion Gap 6 mmol/L (5-15) Blood Urea Nitrogen 14 mg/dL (7-18) Creatinine 0.6 MG/DL (0.55-1.30) Estimat Glomerular Filtration Rate > 60 mL/min (>60) Glucose Level 94 MG/DL (74-106) Calcium Level 9.0 MG/DL (8.5-10.1) Current Medications Medications (Trade) Dose Ordered Sig/Nikolay Route PRN Reason Start Time Stop Time Status Last Admin Dose Admin Acetaminophen (Tylenol) 650 mg Q4H PRN ORAL Mild Pain/Temp > 100.5 04/12/19 16:42 05/12/19 16:41 04/15/19 00:46 Al Hydroxide/Mg Hydroxide (Mylanta) 30 ml Q6H PRN ORAL dyspepsia 04/14/19 16:15 05/14/19 16:14 04/19/19 12:48 Benztropine Mesylate (Cogentin) 1 mg BID ORAL 04/12/19 18:00 05/12/19 17:59 04/17/19 18:22 Cephalexin (Keflex) 500 mg FOUR TIMES A DAY ORAL 04/17/19 21:00 04/24/19 20:59 04/19/19 12:48 Docusate Sodium (Colace) 100 mg BID ORAL 04/14/19 18:00 05/14/19 17:59 04/19/19 08:23 Gabapentin (Neurontin) 300 mg Q12HR ORAL 04/12/19 21:00 05/12/19 20:59 04/19/19 08:20 Heparin Sodium (Porcine) (Heparin 5000 units/ml) 5,000 units EVERY 12 HOURS SUBQ 04/12/19 21:00 05/12/19 20:59 04/17/19 08:47 Levetiracetam (Keppra) 1,000 mg Q12HR ORAL 04/12/19 21:00 05/12/19 20:59 04/19/19 08:21 Losartan Potassium (Cozaar) 50 mg DAILY ORAL 04/13/19 09:00 05/13/19 08:59 04/19/19 08:23 Magnesium Hydroxide (Mom) 30 ml DAILYPRN PRN ORAL Constipation 04/14/19 16:15 05/14/19 16:14 Risperidone (RisperDAL) 1 mg DAILY ORAL 04/13/19 09:00 05/13/19 08:59 04/17/19 08:43 Risperidone (RisperDAL) 2 mg QHS ORAL 04/12/19 21:00 05/12/19 20:59 04/18/19 21:24 Sennosides (Senokot) 17.2 mg DAILY ORAL 04/18/19 19:00 05/18/19 18:59 04/19/19 08:22 Tamsulosin HCl (Flomax) 0.4 mg BEDTIME ORAL 04/12/19 21:00 05/12/19 20:59 04/17/19 21:51 Temazepam (Restoril) 15 mg HSPRN PRN ORAL Insomnia 04/16/19 20:30 04/23/19 20:29 04/16/19 22:08 Trimethoprim/ Sulfamethoxazole (Bactrim-DS) 1 tab Q12HR ORAL 04/17/19 21:00 04/24/19 20:59 04/19/19 08:20 Kassidy Chino MD Apr 19, 2019 15:01
[2019-04-19 16:00] VITALS: BP 120/69
[2019-04-19] MEDS ORDERED: BACTRIM-DS1 EA ORAL (18:41)
[2019-04-19] MEDS ORDERED: KEFLEX500 M1 ORAL (18:41)
--- NOTE | 2019-04-19 19:10 | NUR ---
NURSE NOTES: Received a report from BEVERLY Turner. Pt is in stable condition. AAOX3. Able to make needs known. On room air. No c/o pain/discomfort. No IV access- MD aware. Bed in lowest position. Bed alarm is on. Call light within reach. Will continue to monitor. 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
--- NOTE | 2019-04-19 19:10 | NUR ---
HAND-OFF: Report given to BEVERLY Sullivan.
[2019-04-19 20:00] VITALS: BP 111/69
[2019-04-19] MEDS: Tamsulosin 0.4mg cap ORAL SCH (21:00)
--- NOTE | 2019-04-19 22:16 | Surgery Progress Note ---
Surgery Progress Note Subjective Symptoms: improved, pain absent, tolerating diet, voiding well, passing flatus Additional Comments incontinent but wound improving no drainage today Objective Last 24 Hour Vital Signs Date Time Temp Pulse Resp B/P (MAP) Pulse Ox O2 Delivery O2 Flow Rate FiO2 04/19/19 20:00 97.0 93 16 111/69 (83) 96 04/19/19 16:00 97.5 77 19 120/69 (86) 97 04/19/19 12:00 97.6 81 19 118/70 (86) 97 04/19/19 09:55 Room Air 04/19/19 08:23 110/73 04/19/19 08:00 97.3 77 19 110/73 (85) 96 04/19/19 04:00 97.0 80 20 107/70 (82) 95 04/19/19 00:00 99.3 82 20 115/75 (88) 95 I&O Intake and Output 04/18/19 04/19/19 18:59 06:59 Intake Total 600 ml Output Total 450 ml Balance 150 ml Intake Oral 600 ml Output Urine Total 450 ml # Voids 6 4 # Bowel Movements 3 Dressing: saturated Wound: clean Cardiovascular: RSR Respiratory: clear Abdomen: soft, flat, non-tender, present bowel sounds Extremities: no tenderness, no cyanosis Plan Problems: (1) Cellulitis and abscess of buttock Assessment & Plan: This is a 69 m old male with fever, leukocytosis, abscess and cellulitis of the right buttock. Patient unsure of duration and did not know he had this prior. When evaluated the bedside patient had a 1 cm opening with seropurulent drainage and surrounding cellulitis erythema tenderness and induration. No other fluctuant cavities identified. The periwound has erythema and induration and extends medially towards the perirectal area. There is some skin changes in this area as well some related to incontinence and some from the cellulitis. Given spontaneous drainage will hold on acute surgical intervention. Will order CT pelvis to evaluate for possible deep abscess. Recommend IV antibiotics. Okay for diet. Will follow with recommendations. Thank you for allowing for participation patient's care CT reviewed with radiology. phlegmon near rectum and perirectal. no clear defined abscess. constipated no acute surgical intervention planned cont with ABX for now phlegmon may form abscess but seems to be draining already likely has had this for some time 1. Interval progression of marked rectal wall thickening and mucosal enhancement with severe stool burden concerning for stercoral colitis. As reported before, underlying mass is not excluded and correlation 2. Right gluteal ill-defined fluid collection as described above, concerning for developing abscess, which may be contiguous with inflamed right lateral rectal wall; fistulization is not excluded. 3. Pericholecystic fluid which may be related to trace abdominal ascites, however if there is continued clinical concern for acute cholecystitis, right upper quadrant ultrasound can be obtained. 4. Decreased enhancement in the left lower renal cortex with associated fat stranding, which may be related to ischemic changes or infiltrative process, but correlation with urinalysis is recommended to exclude acute pyelonephritis. seemingly likely phlegmon as defined abscess not seen improving on IV abx cont with current care no plan for debridement at this time discharge planning from surgical standpoint cont with bid packing and dressing and prn until healed okay for diet IV abx AM labs packing and dressing BID to buttock wound will follow with exam and recs thank you Abdiel Durant Apr 19, 2019 22:16
--- NOTE | 2019-04-19 22:30 | Discharge Summary ---
DATE OF ADMISSION: 04/12/2019 DATE OF DISCHARGE: 04/19/2019 PERTINENT HISTORY: See the note of Dr. Leonel Loo, who now was out of town. The patient presents with abscess in the right buttock, leukocytosis, as well as history of schizophrenia, COPD, epilepsy, contractures, recurrent hyponatremia. PERTINENT PHYSICAL FINDINGS: See Dr. Loo's consultation. HEAD, EYES, EARS, NOSE, AND THROAT: No inflammation. NECK: No adenopathy. LUNGS: Clear. HEART: Regular rhythm. No murmur. ABDOMEN: Soft. No organomegaly. EXTREMITIES: No edema. There are contractures in one knee and one hand. NEUROLOGIC: No focal deficits. He is alert and oriented. SKIN: Buttock shows an area of abscess and pus draining. COURSE IN THE HOSPITAL: The patient had imaging including a CT of the pelvis, which showed rectal wall thickening and mucosal enhancement with severe stool burden concerning for stercoral colitis, right gluteal ill-defined fluid collection concerning for abscess and the patient was seen by Dr. Durant. Wound care was given as per empiric antibiotics. Cultures include MRSA and multiple other organisms. He was seen by Infectious Disease consultation, received a course of IV antibiotics. His wound started to improve, but he would need further nursing care and the care was arranged by custodial facility and was discharged to an ECF in stable condition. FINAL DIAGNOSES: 1. Right buttock's abscess. 2. Fecal impaction. 3. COPD. 4. Schizophrenia. 5. Osteoarthritis with contractures. 6. Hyponatremia chronic. 7. Epilepsy. DISCHARGE DISPOSITION: To the [facility] and use prior to admission medicines plus Keflex and Bactrim for a week and packing of the wound b.i.d. and wound care. FOLLOWUP: Follow up by Dr. Carpenter. Liam Carpenter M.D. DR: SAYRA JOB#: [id number] CC:
[2019-04-19] MEDS ORDERED: Tubing IV Secondary IV ONE (23:49)
--- NOTE | 2019-04-19 23:49 | NUR ---
NURSE NOTES: Ambulance came and picked up the pt. Pt is in stable condition. Able to make needs known. His belongings are with him.
--- NOTE | 2019-04-20 12:26 | CDS Physician Query ---
Clarification is required for compliance, coding accuracy, and to reflect severity of illness for this patient. Dear Dr. Liam Carpenter Date: 04/18/2019 CDS: Jessica Beckham Clinical Documentation states: 04/14 ID note: The patient has right buttock abscess and cellulitis with so far wound culture or draining culture of abscess has MRSA and Proteus. The patient also has sepsis, leukocytosis, fevers with the right buttock abscess, cellulitis, and infected wound. Vitals/labs on admission: Temp 99.0, HR 80, RR 25, WBC 14.3 Treatment: IV vancomycin, ceftriaxone A diagnosis of Sepsis was made in the medical record on 04/14 (admission day 04/12) on the ID note. Upon review, it is difficult to determine whether this diagnosis has been ruled in, ruled out,or is still being worked up. Please indicate below the status of the aforementioned diagnosis. [] Treated and resolve [] Presumed and treated [] Currently under treatment [] Still being worked-up [x] Ruled out Present on Admission: [] Yes [x] No [] Clinically Undetermined Physician signature Date Please also document in your Progress Notes and/or Discharge Summary and indicate if the condition was present on admission. MTDD
== END 2019-04-19 23:50 | DRG 603 ==
LOC: EDBD 13:07 → EMR 14:29 → 4E 14:40 → EDBEDREQ 15:27 → 4E 16:03
DX: L02.31 Cutaneous abscess of buttock (principal); E87.1 Hypo-osmolality and hyponatremia; L03.317 Cellulitis of buttock; F20.9 Schizophrenia, unspecified; F17.200 Nicotine dependence, unspecified, uncomplicated; G40.909 Epilepsy, unspecified, not intractable, without status epilepticus; J44.9 Chronic obstructive pulmonary disease, unspecified; K56.41 Fecal impaction; K52.89 Other specified noninfective gastroenteritis and colitis; M19.90 Unspecified osteoarthritis, unspecified site; M24.50 Contracture, unspecified joint; N40.0 Benign prostatic hyperplasia without lower urinary tract symptoms; B95.62 Methicillin resistant Staphylococcus aureus infection as the cause of diseases classified elsewhere; B96.4 Proteus (mirabilis) (morganii) as the cause of diseases classified elsewhere
CPT/HCPCS: 36415; 71045; 72193; 80048; 80053; 80202; 80299; 83605; 83880; 85025; 85610; 85651; 85730; 86140; 87040; 87070; 87081; 87181; 87205; 96361; 96365; 99285